=== PATIENT | male | born 1975 | race Caucasian/White ===

== ENCOUNTER → 2020-11-30 08:25 | Outpatient (BNVA) | payer OTHER, SELFPAY | PROVIDERS: PCP Internal Medicine; Visit Provider Student in an Organized Health Care Education/Training Program | DX: M10.421 Other secondary gout, right elbow (principal) | CPT/HCPCS: 99202 ==

== ENCOUNTER 2021-01-19 14:54 | Outpatient (REF) | payer OTHER, SELFPAY ==
[2021-01-19 15:19] LABS: MANUAL DIFF FLAG NO
[2021-01-19 15:21] LABS: Basophils Absolute Auto 0.1 X10*3/uL (0.0-0.2); Basophils Percent Auto 0.7 % (0-2); Eosinophils Absolute Auto 0.1 X10*3/uL (0.0-0.4); Eosinophils Percent Auto 1.4 % (0-4); Hematocrit 44.2 % (42-52); Hemoglobin 14.6 g/dl (14.0-18.0); Imm Gran Abs Auto 0.01 X10*3/uL (0.00-0.03); Imm Gran Pct Auto 0.1 % (0.0-0.4); Lymphocytes Absolute Auto 1.9 X10*3/uL (1.2-4.9); Lymphocytes Percent Auto 23.8 % (20-40); Mean Corpuscular Hemoglobin 30.2 pg (27.0-33.0); Mean Corpuscular Volume 91.3 fL (80-98); Mean Platelet Volume 9.7 fL (9.4-12.4); Monocytes Absolute Auto 0.4 X10*3/uL (0.1-1.2); Monocytes Percent Auto 4.6 % (2-11); Neutrophils Absolute Auto 5.6 X10*3/uL (2.0-8.3); Neutrophils Percent Auto 69.4 % (45-73); Platelet Count 296 X10*3/uL (160-400); Red Blood Count 4.84 X10*6/uL (4.60-5.80); Red Cell Distribution Width 13.2 % (11.0-16.0); White Blood Count 8.1 X10*3/uL (4.8-10.8)
[2021-01-19 15:46] LABS: Alanine Aminotransferase 18 U/L (0-40); Albumin Level 4.4 g/dL (3.5-5.0); Alkaline Phosphatase 79 U/L (39-117); Anion Gap 15 (12-20); Aspartate Amino Transferase 16 U/L (5-37); Bilirubin Total 0.9 mg/dL (0.0-1.0); Blood Urea Nitrogen 12 mg/dL (9-16); C Reactive Protein 2.73 mg/dL (< or = 0.50); Carbon Dioxide 30 mmol/L (22-29); Chloride 102 mmol/L (96-108); Estimated Glomerular Filt Rate > 60; Glucose Random 93 mg/dL (60-115); Potassium 4.7 mmol/L (3.3-5.1); Sodium 142 mmol/L (135-145); Total Protein 7.4 g/dL (6.5-8.0); Uric Acid 8.3 mg/dL (3.4-7.0)
[2021-01-19 15:56] LABS: Rheumatoid Factor < 15.0 IU/mL (<15.0)
[2021-01-19 16:09] LABS: Erythrocyte Sedimentation Rate 33 MM/HR (0-15)
[2021-01-22 23:22] LABS: Cyclic Citrullinated Peptide <16 UNITS
== END 2021-01-19 14:55 | disposition home or self-care (01) ==
LOC: HO.LAB 14:54
PROVIDERS: Absent Provider Internal Medicine; PCP Internal Medicine; Visit Provider Student in an Organized Health Care Education/Training Program
DX: M10.421 Other secondary gout, right elbow (principal)
CPT/HCPCS: 36415; 80053; 84550; 85025; 85652; 86140; 86200; 86431

== ENCOUNTER 2021-03-20 16:53 | Outpatient (REF) | payer OTHER, SELFPAY ==
--- NOTE | ~2021-03-20 | XR_ITS ---
EXAMINATION: XR ANKLE, LEFT CLINICAL INFORMATION: Left ankle and foot pain. COMPARISON: Left ankle radiographs dated 01/04/2018. TECHNIQUE: AP, lateral, and mortise views of the left ankle. FINDINGS: Chronic probable avulsion fractures at the medial and lateral malleoli with interval healing laterally when compared to the radiographs from 2018. No acute fracture or dislocation. The ankle mortise is maintained. Joint space narrowing with marginal osteophytes at the tibiotalar joint. Degenerative spurring throughout the dorsal midfoot. Findings have increased. Dorsal calcaneal enthesophyte. Joint effusion and circumferential soft tissue swelling. XR/XR ankle LT 2V IMPRESSION: Joint effusion and circumferential soft tissue swelling without acute osseous abnormality. Degenerative arthritis at the tibiotalar joint and dorsal midfoot have increased.
--- NOTE | ~2021-03-20 | XR_ITS ---
EXAMINATION: XR ELBOW, RIGHT CLINICAL INFORMATION: Gout. COMPARISON: None TECHNIQUE: AP, lateral, and oblique views of the right elbow. FINDINGS: No acute fracture or dislocation. No joint space narrowing or marginal osteophytes. No osseous erosion. No significant joint effusion. Olecranon enthesophyte. Prominent soft tissue swelling overlying the olecranon, which could represent olecranon bursitis. Alternatively, findings could represent a soft tissue contusion. XR/XR elbow RT 2V IMPRESSION: Prominent soft tissue swelling overlying the olecranon, which could represent olecranon bursitis versus a soft tissue contusion.
== END 2021-03-20 16:54 | disposition home or self-care (01) ==
LOC: HO.XRAY 16:53
PROVIDERS: Absent Provider Student in an Organized Health Care Education/Training Program; PCP Internal Medicine; Visit Provider Nurse Practitioner Family
DX: M10.421 Other secondary gout, right elbow (principal); M25.572 Pain in left ankle and joints of left foot
CPT/HCPCS: 73070; 73600

== ENCOUNTER 2021-03-27 13:01 | Outpatient (REF) | payer OTHER, SELFPAY ==
--- NOTE | ~2021-03-27 | XR_ITS ---
EXAMINATION: XR HAND, LEFT CLINICAL INFORMATION: Pain COMPARISON: None TECHNIQUE: PA, lateral, and oblique views of the left hand. FINDINGS: The bones and soft tissues are normal. No fracture. Alignment is anatomic. Joint spaces are maintained. No erosions or soft tissue calcifications. XR/XR hand LT min 3V IMPRESSION: Normal left hand.
[2021-03-27 15:09] LABS: Alanine Aminotransferase 14 U/L (0-40); Albumin Level 4.3 g/dL (3.5-5.0); Alkaline Phosphatase 69 U/L (39-117); Anion Gap 14 (12-20); Aspartate Amino Transferase 13 U/L (5-37); Bilirubin Total 0.7 mg/dL (0.0-1.0); Blood Urea Nitrogen 11 mg/dL (9-16); C Reactive Protein 0.49 mg/dL (< or = 0.50); Calcium 9.9 mg/dL (8.4-10.2); Carbon Dioxide 29 mmol/L (22-29); Chloride 102 mmol/L (96-108); Estimated Glomerular Filt Rate > 60; Glucose Random 90 mg/dL (60-115); Potassium 4.6 mmol/L (3.3-5.1); Sodium 140 mmol/L (135-145); Total Protein 7.1 g/dL (6.5-8.0); Uric Acid 8.6 mg/dL (3.4-7.0)
== END 2021-03-27 13:02 | disposition home or self-care (01) ==
LOC: HO.XRAY 13:01
PROVIDERS: PCP Internal Medicine; Visit Provider Nurse Practitioner Family
DX: M79.642 Pain in left hand (principal); M10.421 Other secondary gout, right elbow
CPT/HCPCS: 36415; 73130; 80053; 84550; 86140; 99212

== ENCOUNTER → 2021-04-09 13:19 | Outpatient (BNVA) | payer OTHER, SELFPAY | PROVIDERS: PCP Internal Medicine; Visit Provider Orthopaedic Surgery | DX: M19.072 Primary osteoarthritis, left ankle and foot (principal); E11.65 Type 2 diabetes mellitus with hyperglycemia | CPT/HCPCS: 20605; 99202; J1100 ==

== ENCOUNTER 2021-05-07 10:00 | Outpatient (RCR) | payer OTHER, SELFPAY | END 2021-10-09 07:51 | disposition home or self-care (01) | LOC: HO.PTWFD 10:00 | PROVIDERS: PCP Internal Medicine; Visit Provider Orthopaedic Surgery | DX: M25.571 Pain in right ankle and joints of right foot (principal); M19.072 Primary osteoarthritis, left ankle and foot | CPT/HCPCS: 97035; 97110; 97140; 97162; 97530; 97535 ==

== ENCOUNTER 2021-07-12 12:06 | Emergency (ER) | payer OTHER, SELFPAY ==
--- NOTE | ~2021-07-12 | XR_ITS ---
EXAMINATION: RIGHT FOOT AND ANKLE CLINICAL INFORMATION: Rolling injury with lateral foot and ankle pain COMPARISON: April 04, 2018 and February 12, 2018 TECHNIQUE: Two-view right ankle and three-view right foot FINDINGS: There are stable posttraumatic change seen about the right ankle without evidence of acute fracture or dislocation involving the medial and lateral malleoli. There appears be old avulsion fragment versus secondary ossification center adjacent to the medial malleolus.. Ankle mortise appears unremarkable. Appearance is similar to previous study of April 04, 2018. There is soft tissue swelling present. There is a prominent Achilles calcaneal spur present. Views of the right foot demonstrate some dorsal spurring at the talonavicular joint and cuneiforms. No acute fracture is evident. There is degenerative change of the first metacarpal phalangeal joint with narrowing of joint space, marginal sclerosis, spurring, and subchondral cyst formation. XR/XR ankle RT 2V IMPRESSION: No acute fracture or dislocation of the right foot or ankle appreciated. Probable sequela of previous injuries as described above. Large amount soft tissue swelling.
--- NOTE | ~2021-07-12 | XR_ITS ---
EXAMINATION: RIGHT FOOT AND ANKLE CLINICAL INFORMATION: Rolling injury with lateral foot and ankle pain COMPARISON: April 04, 2018 and February 12, 2018 TECHNIQUE: Two-view right ankle and three-view right foot FINDINGS: There are stable posttraumatic change seen about the right ankle without evidence of acute fracture or dislocation involving the medial and lateral malleoli. There appears be old avulsion fragment versus secondary ossification center adjacent to the medial malleolus.. Ankle mortise appears unremarkable. Appearance is similar to previous study of April 04, 2018. There is soft tissue swelling present. There is a prominent Achilles calcaneal spur present. Views of the right foot demonstrate some dorsal spurring at the talonavicular joint and cuneiforms. No acute fracture is evident. There is degenerative change of the first metacarpal phalangeal joint with narrowing of joint space, marginal sclerosis, spurring, and subchondral cyst formation. XR/XR foot RT 2V IMPRESSION: No acute fracture or dislocation of the right foot or ankle appreciated. Probable sequela of previous injuries as described above. Large amount soft tissue swelling.
[2021-07-12 12:17] VITALS: BP 114/80; PULSE 73; RESP 18; TEMP 37.1; O2SAT 98; BMI 32.5
--- NOTE | 2021-07-12 12:40 | ED_ITS ---
HPI - Extremity Injury (Lower) General Chief Complaint: Extremity Injury, Lower Stated Complaint: r ankle inj Time Seen by Provider: 07/12/21 12:24 Source: patient Mode of arrival: ambulatory Limitations: no limitations History of Present Illness HPI Narrative: 45-year-old male a history of peripheral vascular disease, gout, obesity, diabetes, hypertension and hyperlipidemia here with reports of right ankle pain. Patient tells me prior to arrival he had inversion injury of the right ankle. Since then he has pain with weight-bearing. No numbness, tingling, swelling, warmth or redness. Related Data Home Medications Medication Instructions Recorded Confirmed aspirin 81 mg tablet,delayed 81 mg PO DAILY 04/25/20 03/27/21 release (Adult Aspirin Regimen) multivitamin 1 tab PO DAILY 03/27/21 03/27/21 Previous Rx's Medication Instructions Recorded propranolol 10 mg tablet 10 mg PO BID #60 tab 04/25/20 escitalopram oxalate 20 mg tablet 20 mg PO DAILY #90 tab 07/21/20 allopurinol 300 mg tablet 300 mg PO DAILY #90 tab 10/10/20 compress.stocking,knee,reg,lrg #2 ea 10/11/20 colchicine 0.6 mg tablet (Colcrys) 0.6 mg PO DAILY #90 tab 01/19/21 simvastatin 5 mg tablet 5 mg PO QPM #90 tab 01/19/21 ibuprofen 600 mg tablet 600 mg PO Q8H PRN #15 tab 03/20/21 metformin 500 mg tablet 500 mg PO DAILY #90 tab 03/20/21 oxycodone 5 mg tablet 5 mg PO DAILY PRN #7 tab 03/20/21 allopurinol 100 mg tablet 100 mg PO DAILY #30 tab 07/02/21 Allergies Allergy/AdvReac Type Severity Reaction Status Date / Time latex [LATEX] Allergy Intermediate RASH Verified 07/12/21 12:17 acetaminophen Allergy Unknown stomach Verified 07/12/21 12:17 [Tylenol] upset amoxicillin Allergy Unknown nausea and Verified 07/12/21 12:17 vomiting Review of Systems Verdana 4l Review of Systems: Yes all other systems are reviewed and Verdana 4d are negative Verdana 4l Constitutional: Verdana 4d Constitutional: Verdana 4d Verdana 4d Reports no additional constitutional complaints, Denies body ache(s), Denies chills, Denies fever(s), Denies headache(s) and Denies weakness Verdana 4l Eyes: Verdana 4d Verdana 4d Eyes: Verdana 4d Reports no additional eye complaints and Denies change in vision Verdana 4l ENT: Verdana 4d Reports system reviewed and no additional complaints, except as documented, Denies dizziness, Denies headache(s), Denies nasal congestion, Denies nasal discharge and Denies neck pain Verdana 4l Cardiovascular: Verdana 4d Cardiovascular: Verdana 4d Verdana 4d Reports no additional cardiovascular complaints, Denies chest pain, Denies leg edema and Denies dyspnea Verdana 4l Respiratory: Verdana 4d Verdana 4d Respiratory: Verdana 4d Reports no additional respiratory complaints, Denies cough and Denies dyspnea Verdana 4l Gastrointestinal: Verdana 4d Gastrointestinal: Verdana 4d Verdana 4d Reports no additional gastrointestinal complaints, Denies abdominal pain, Denies diarrhea, Denies nausea and Denies vomiting Verdana 4l Genitourinary: Verdana 4d Verdana 4d Genitourinary: Verdana 4d Denies urinary incontinence Verdana 4l Musculoskeletal: Verdana 4d Musculoskeletal: Verdana 4d Verdana 4d Reports no additional musculoskeletal complaints, Denies back pain, Reports arthralgias, Reports joint swelling, Denies neck pain, Denies numbness and Denies tingling Verdana 4l Integumentary/Breasts: Verdana 4d Skin/Breast: Verdana 4d Verdana 4d Reports system reviewed and no additional complaints, except as docu and Denies rash Verdana 4l Neurologic: Verdana 4d Reports system reviewed and no additional complaints, except as documented, Denies Abnormal speech present, Denies dizziness, Denies headache(s), Denies numbness, Denies tingling and Denies weakness PMFSH Past Medical History Attestation statement: The following information was validated with the patient. Source: old records reviewed and nursing notes reviewed Medical History Anxiety and depression Contracture, left hand Essential tremor Gout Hypercholesterolemia Hypertension Obesity (BMI 30-39.9) Type 2 diabetes mellitus with hyperglycemia Surgical History History of cholecystectomy History of sleeve gastrectomy History of tonsillectomy Family History Family History Father No problems noted. Mother No problems noted. Social History Social History Household Members: None Housing: Apartment Alcohol intake: never Patient Tobacco Use Status: Never used Tobacco e-Cigarette/Vaping Use: Never Used Second Hand Smoke Exposure: No Advance Directives: No Advance Directives Information Provided: No service: No Current occupational status: employed Current occupation: [employer] Current occupational exposures/hazards: No Physical Exam Verdana 4l Vital Signs: Verdana 4d Verdana 4d Vital Signs: Verdana 4d Verdana 4Bd Last Vital Signs Verdana 4d Motion Designer New 4d Motion Designer New 4d Temp 98.7 F 07/12/21 12:17 Motion Designer New 4d Pulse 73 07/12/21 12:17 Motion Designer New 4d Resp 18 07/12/21 12:17 BP 114/80 07/12/21 12:17 Pulse Ox 98 07/12/21 12:17 BMI result Body Mass Index 32.5 Const: General: cooperative, healthy appearing, comfortable and no acute distress Orientation/consciousness: patient oriented x3 Limitations: no limitations HENMT: Head: Yes normal to inspection Ears: hearing grossly normal bilaterally General nose exam: Normal external nose present Face and sinus: Yes normal facial exam Mouth: Normal oral and palatal mucosa present Throat: Yes posterior oropharynx normal Eyes: General: appearance normal, both eyes and all related structures Pupils: Equal, round and reactive pupils present Neck: Neck: Yes normal visual inspection Chest: Chest palpation & inspection: normal inspection of the chest Resp: Effort & Inspection: normal respiratory effort Auscultation: clear to auscultation bilaterally Cardio: Rate: regular rate Rhythm: regular rhythm Peripheral pulses: Peripheral pulses 2+ throughout GI: Inspection: Yes normal to inspection Palpation (GI): Soft to palpation and nontender Auscultation: normal bowel sounds Back/Spine/Pelvis: Thoracic/Lumbar Spine: thoracic and lumbar spine normal to inspection Skin: General skin exam: no rashes or lesions noted Neuro: General: patient oriented x3, no focal motor deficits and normal sensation to monofilament Cranial nerves: Yes Equal, round and reactive pupils present Cognition (Neuro): normal cognition Speech: No Abnormal speech present Gait exam (Neuro): Normal gait present Motor exam (neuro): 5/5 motor strength present throughout Extrem: Other: The lateral aspect of the ankle and the foot there is swelling, ecchymosis and tenderness. Full range of motion. Neurovascularly intact distally to the injury. No posterior ankle pain. Negative Don test General: Yes normal to inspection Course Course Course Narrative: 45-year-old male here with right ankle pain after an inversion injury. Patient also has tenderness and ecchymosis over the lateral aspect of foot. Will check x-rays 1445-x-ray show no bony abnormality. Likely sprain. Patient placed in air cast and given crutches for home. Reviewed rice. Reviewed worrisome signs and symptoms of when to return to the emergency department. Comfortable discharge home. MDM - Extremity Injury (Lower) Differential Diagnosis Differential diagnosis: Likely ankle sprain and strain and ankle fracture Medical Records Attestation: I reviewed the patient's medical records. Lab Data Attestation: I reviewed the patient's lab results. Imaging Data ankle/foot xray: Attestation: I personally reviewed and interpreted this imaging study as follows: Radiologist's impression: FINDINGS: There are stable posttraumatic change seen about the right ankle without evidence of acute fracture or dislocation involving the medial and lateral malleoli. There appears be old avulsion fragment versus secondary ossification center adjacent to the medial malleolus.. Ankle mortise appears unremarkable. Appearance is similar to previous study of April 04, 2018. There is soft tissue swelling present. There is a prominent Achilles calcaneal spur present. Views of the right foot demonstrate some dorsal spurring at the talonavicular joint and cuneiforms. No acute fracture is evident. There is degenerative change of the first metacarpal phalangeal joint with narrowing of joint space, marginal sclerosis, spurring, and subchondral cyst formation. XR/XR ankle RT 2V IMPRESSION: No acute fracture or dislocation of the right foot or ankle appreciated. ? Probable sequela of previous injuries as described above. ? Large amount soft tissue swelling.? Procedures Procedure Narrative Procedure Narrative: air cast, crutches Discharge Plan Discharge Clinical Impression: Ankle sprain and strain Patient Disposition: Home, Self-Care Instructions: Ankle Sprain (DC) Additional Instructions: X-ray show no broken bones Use the Aircast and crutches for the next few days until you are able to bear weight without experiencing pain Ice, elevate, take Motrin for pain as needed Prescriptions: No Action escitalopram oxalate 20 mg tablet 20 mg PO DAILY Qty: 90 1RF allopurinol 300 mg tablet 300 mg PO DAILY Qty: 90 1RF oxycodone 5 mg tablet 5 mg PO DAILY PRN (Reason: pain) Qty: 7 0RF allopurinol 100 mg tablet 100 mg PO DAILY Qty: 30 0RF aspirin [Adult Aspirin Regimen] 81 mg tablet,delayed release (DR/EC) 81 mg PO DAILY 0RF propranolol 10 mg tablet 10 mg PO BID Qty: 60 2RF simvastatin 5 mg tablet 5 mg PO QPM Qty: 90 1RF colchicine [Colcrys] 0.6 mg tablet 0.6 mg PO DAILY Qty: 90 1RF (DME) compress.stocking,knee,reg,lrg Misc See Rx Instructions .ROUTE .MEDSUPPLY Qty: 2 0RF Rx Instructions: As directed metformin 500 mg tablet 500 mg PO DAILY Qty: 90 0RF ibuprofen 600 mg tablet 600 mg PO Q8H PRN (Reason: pain) Qty: 15 0RF multivitamin Tablet 1 tab PO DAILY 0RF Referrals: Po,Randa Hinson MD [Primary Care Provider] - 2 days Stand Alone Forms: Work/School Release Interventions: ED Discharge Assessment Last Done: 07/12/21 15:09 Discharge Date/Time: 07/12/21 15:12
== END 2021-07-12 15:12 | disposition home or self-care (01) ==
PROVIDERS: Emergency Provider Emergency Medicine; PCP Internal Medicine
DX: S93.401A Sprain of unspecified ligament of right ankle, initial encounter (principal); S96.911A Strain of unspecified muscle and tendon at ankle and foot level, right foot, initial encounter; X50.1XXA Overexertion from prolonged static or awkward postures, initial encounter; E11.9 Type 2 diabetes mellitus without complications; I10 Essential (primary) hypertension; Y93.9 Activity, unspecified; Y92.9 Unspecified place or not applicable; Y99.9 Unspecified external cause status
CPT/HCPCS: 73600; 73620; 99283

== ENCOUNTER → 2021-10-22 08:17 | Outpatient (BNVA) | payer OTHER, SELFPAY | PROVIDERS: PCP Internal Medicine | DX: N20.0 Calculus of kidney (principal) | CPT/HCPCS: 99202 ==

== ENCOUNTER 2021-11-27 11:02 | Outpatient (REF) | payer OTHER, SELFPAY ==
[2021-11-27 13:15] LABS: MANUAL DIFF FLAG NO
[2021-11-27 13:18] LABS: Basophils Percent Auto 0.6 % (0-2); Eosinophils Absolute Auto 0.1 X10*3/uL (0.0-0.4); Eosinophils Percent Auto 1.8 % (0-4); Hematocrit 39.2 % (42.0-52.0); Hemoglobin 12.7 g/dl (14.0-18.0); Imm Gran Abs Auto 0.02 X10*3/uL (0.00-0.03); Imm Gran Pct Auto 0.3 % (0.0-0.4); Lymphocytes Absolute Auto 1.8 X10*3/uL (1.2-4.9); Lymphocytes Percent Auto 28.3 % (20-40); Mean Corpuscular HGB Conc 32.4 g/dl (31.0-36.0); Mean Corpuscular Hemoglobin 29.8 pg (27.0-33.0); Mean Platelet Volume 9.9 fL (9.4-12.4); Monocytes Absolute Auto 0.3 X10*3/uL (0.1-1.2); Monocytes Percent Auto 5.4 % (2-11); Neutrophils Percent Auto 63.6 % (45-73); Platelet Count 279 X10*3/uL (160-400); Red Blood Count 4.26 X10*6/uL (4.60-5.80); Red Cell Distribution Width 13.4 % (11.0-16.0); White Blood Count 6.3 X10*3/uL (4.8-10.8)
[2021-11-27 14:22] LABS: Alanine Aminotransferase 12 U/L (0-40); Alkaline Phosphatase 75 U/L (39-117); Anion Gap 11 (12-20); Aspartate Amino Transferase 15 U/L (5-37); Bilirubin Total 0.2 mg/dL (0.0-1.0); Blood Urea Nitrogen 10 mg/dL (9-16); Calcium 9.3 mg/dL (8.4-10.2); Carbon Dioxide 30 mmol/L (22-29); Chloride 103 mmol/L (96-108); Estimated Glomerular Filt Rate > 60; Glucose Random 90 mg/dL (60-115); Potassium 4.7 mmol/L (3.3-5.1); Sodium 139 mmol/L (135-145); Total Protein 6.8 g/dL (6.5-8.0); Uric Acid 7.9 mg/dL (3.4-7.0)
== END 2021-11-27 11:03 | disposition home or self-care (01) ==
LOC: HO.WFDLDS 11:02
PROVIDERS: Visit Provider Family Medicine
DX: Z00.00 Encounter for general adult medical examination without abnormal findings (principal); M10.9 Gout, unspecified
CPT/HCPCS: 36415; 80053; 84550; 85025

== ENCOUNTER → 2021-12-17 13:23 | Outpatient (BNVA) | payer OTHER, SELFPAY | PROVIDERS: PCP Internal Medicine; Visit Provider Physician Assistant | DX: M25.462 Effusion, left knee (principal); M10.9 Gout, unspecified | CPT/HCPCS: 20610; 99212; J1040 ==

== ENCOUNTER 2021-12-20 13:40 | Outpatient (REF) | payer OTHER, SELFPAY ==
--- NOTE | ~2021-12-20 | XR_ITS ---
EXAMINATION: XR KNEE, LEFT CLINICAL INFORMATION: M25.562 - Pain in left knee COMPARISON: Radiographs left knee 09/25/2019 TECHNIQUE: Four views of the left knee. FINDINGS: No fracture, dislocation, destructive process, or effusion. Hoffa's fat pad appears normal. No joint narrowing or erosive change or chondrocalcinosis. There is no lateralization or tilting of the patella. Again, there is bulky spurring at the quadriceps insertion patella. Small spurring is noted at origin patellar tendon. The deep infrapatellar recess is preserved. XR/XR knee LT 3V IMPRESSION: -Spurring extensor mechanism with bulky spurring quadriceps insertion patella and small spur origin patellar tendon. -No joint narrowing. No effusion.
== END 2021-12-20 13:41 | disposition home or self-care (01) ==
LOC: HO.XRAY 13:40
PROVIDERS: PCP Internal Medicine; Visit Provider Nurse Practitioner Family
DX: M25.562 Pain in left knee (principal); M79.642 Pain in left hand; M10.421 Other secondary gout, right elbow; Z79.899 Other long term (current) drug therapy
CPT/HCPCS: 73562; 99212

== ENCOUNTER → 2022-01-30 10:29 | Outpatient (BNVA) | payer OTHER, SELFPAY | PROVIDERS: PCP Internal Medicine; Visit Provider Nurse Practitioner Family | DX: M10.421 Other secondary gout, right elbow (principal); M79.642 Pain in left hand | CPT/HCPCS: 99212 ==

== ENCOUNTER 2022-03-19 08:21 | Outpatient (REF) | payer OTHER, SELFPAY ==
--- NOTE | ~2022-03-19 | XR_ITS ---
EXAMINATION: XR AP STANDING VIEW OF BOTH KNEES XR KNEE, RIGHT CLINICAL INFORMATION: Knee pain. COMPARISON: 12/20/2021. TECHNIQUE: AP standing views of both knees and patella sunrise and lateral views of the right knee. FINDINGS: AP standing view of both knees demonstrates maintenance of the medial lateral joint space compartments of each knee. No acute fractures appreciated. Lateral and sunrise views of the right knee demonstrate patella spurs sites of insertion of the quadriceps and patellar tendons. No effusion is appreciated. There is degenerative spurring about the patellofemoral joint with narrowing of the lateral facet joint. XR/XR knee standing BI IMPRESSION: Right patellofemoral joint degenerative change.
--- NOTE | ~2022-03-19 | XR_ITS ---
EXAMINATION: XR AP STANDING VIEW OF BOTH KNEES XR KNEE, RIGHT CLINICAL INFORMATION: Knee pain. COMPARISON: 12/20/2021. TECHNIQUE: AP standing views of both knees and patella sunrise and lateral views of the right knee. FINDINGS: AP standing view of both knees demonstrates maintenance of the medial lateral joint space compartments of each knee. No acute fractures appreciated. Lateral and sunrise views of the right knee demonstrate patella spurs sites of insertion of the quadriceps and patellar tendons. No effusion is appreciated. There is degenerative spurring about the patellofemoral joint with narrowing of the lateral facet joint. XR/XR knee RT 2V IMPRESSION: Right patellofemoral joint degenerative change.
== END 2022-03-19 08:22 | disposition home or self-care (01) ==
LOC: HO.HOSX 08:21
PROVIDERS: Visit Provider Physician Assistant
DX: M17.11 Unilateral primary osteoarthritis, right knee (principal)
CPT/HCPCS: 73560; 73565; 99212

== ENCOUNTER 2022-03-25 19:27 | Outpatient (REF) | payer OTHER, SELFPAY | END 2022-03-25 19:28 | disposition home or self-care (01) | LOC: HO.MRI 19:27 | PROVIDERS: Visit Provider Physician Assistant | DX: Z13.89 Encounter for screening for other disorder (principal) ==

== ENCOUNTER 2022-04-10 16:19 | Outpatient (REF) | payer OTHER, SELFPAY ==
[2022-04-10 17:42] LABS: Estimated Average Glucose 111 mg/dL; Hemoglobin A1c % 5.5 %
[2022-04-10 18:10] LABS: Vitamin D 25-OH Total 20.9 ng/mL (>30)
[2022-04-10 18:16] LABS: Folate 9.4 ng/mL (> or = 4.0); Vitamin B12 336 pg/mL (200-900)
== END 2022-04-10 16:20 | disposition home or self-care (01) ==
LOC: HO.LAB 16:19
PROVIDERS: Absent Provider Nurse Practitioner Family; PCP Internal Medicine; Visit Provider Nurse Practitioner Family
DX: R20.0 Anesthesia of skin (principal)
CPT/HCPCS: 36415; 82306; 82607; 82746; 83036

== ENCOUNTER 2022-04-12 09:39 | Emergency (ER) | payer OTHER, SELFPAY ==
--- NOTE | ~2022-04-12 | XR_ITS ---
EXAMINATION: XR FOOT, RIGHT CLINICAL INFORMATION: Fall with pain and swelling COMPARISON: 07/12/2021 TECHNIQUE: AP, lateral, and oblique views of the right foot. FINDINGS: No fracture or dislocation. Alignment maintained. Joint space narrowing at the first metatarsophalangeal joint with osteophyte formation. Marginal erosion at the base of the first digit proximal phalanx. This is unchanged. Overlying soft tissue swelling. Prominent Achilles heel spur. No ankle joint effusion. XR/XR foot RT min 3V IMPRESSION: No acute fracture or malalignment. Degenerative changes at the first metatarsophalangeal joint. Marginal erosion at the base of the first digit proximal phalanx. This can be seen in the setting of gout.
[2022-04-12 09:45] VITALS: BP 124/78; PULSE 74; RESP 20; TEMP 36.3; O2SAT 100; BMI 36.6
--- NOTE | 2022-04-12 10:00 | PC.NURSE ---
patient a/o x4 . pearrla . heart rate regular at 75 beats per minute . lungs clear throughout . breathing even and unlabored . skin pink warm and dry . patient reports twisting right foot , off step and now can not bear weight on it . Xray completed . Bruising noted on 5th toe . redness noted to foot . patient reports 5 out of 10 pain level at this time . abdomen soft not tender . positive bowel sounds in all four quadrants . patient aware of plan of care .
--- NOTE | 2022-04-12 10:40 | ED_ITS ---
HPI - Extremity Injury (Lower) General Chief Complaint: Extremity Injury, Lower Stated Complaint: fall last night swollen ankle Time Seen by Provider: 04/12/22 10:37 Source: patient Mode of arrival: ambulatory Limitations: no limitations History of Present Illness MD complaint: foot injury Onset (ago): day(s) (yesterday) Injury: Right: foot Type of Injury: eversion Place: home Severity: severe Relieving factors: nothing Exacerbating factors: weight bearing and palpation Context: fall Associated symptoms: swelling and unable to bear weight Other symptoms: none Treatments prior to arrival: cold therapy Related Data Home Medications Medication Instructions Recorded Confirmed aspirin 81 mg tablet,delayed 81 mg PO DAILY 04/25/20 04/10/22 release (Adult Aspirin Regimen) multivitamin 1 tab PO DAILY 03/27/21 04/10/22 pyridoxine (vitamin B6) 50 mg 50 mg PO DAILY 11/27/21 04/10/22 tablet Previous Rx's Medication Instructions Recorded compress.stocking,knee,reg,lrg #2 ea 10/11/20 colchicine 0.6 mg tablet (Colcrys) 0.6 mg PO DAILY #90 tabs 01/19/21 ibuprofen 600 mg tablet 600 mg PO Q8H PRN pain #15 tabs 03/20/21 metformin 500 mg tablet 500 mg PO DAILY #90 tabs 03/20/21 simvastatin 5 mg tablet 5 mg PO QPM #90 tabs 07/18/21 escitalopram oxalate 20 mg tablet 20 mg PO DAILY #90 tabs 09/21/21 allopurinol 100 mg tablet 200 mg PO DAILY #60 tabs 12/20/21 allopurinol 300 mg tablet 300 mg PO DAILY #30 tabs 12/20/21 diazepam 5 mg tablet (Valium) 5 mg PO ONCE PRN anxiety #1 tab 04/02/22 gabapentin 100 mg capsule 100 mg PO BEDTIME #14 caps 04/10/22 prednisone 20 mg tablet 20 mg PO DAILY 5 days #5 tabs 04/10/22 cholecalciferol (vitamin D3) 25 25 mcg PO DAILY #90 tabs 04/11/22 mcg (1,000 unit) tablet ibuprofen 600 mg tablet 600 mg PO Q8H PRN pain #30 tabs 04/12/22 morphine 15 mg immediate release 15 mg PO TID PRN pain #6 tabs 04/12/22 tablet Allergies Allergy/AdvReac Type Severity Reaction Status Date / Time latex [LATEX] Allergy Intermediate RASH Verified 04/10/22 15:47 acetaminophen [Tylenol] Allergy Unknown stomach Verified 04/10/22 15:47 upset amoxicillin Allergy Unknown nausea and Verified 04/10/22 15:47 vomiting Review of Systems Review of Systems: Constitutional : No Fever, No Chills Cardiovascular : No Chest Pain, No SOB Respiratory : No Cough, No Dyspnea Gastrointestinal : No Nausea, No Vomiting, No Diarrhea, No abdominal Pain Genitourinary : No Dysuria, No Hematuria Musculoskeletal : positive joint pain, No Myalgias, pos Joint Swelling Skin : No Skin lacerations, No rash Neuro : No Weakness, No Numbness PMFSH Past Medical History Attestation statement: The following information was validated with the patient. Medical History Anxiety and depression Contracture, left hand Essential tremor Gout Hypercholesterolemia Hypertension Obesity (BMI 30-39.9) Type 2 diabetes mellitus with hyperglycemia Surgical History History of cholecystectomy History of sleeve gastrectomy History of tonsillectomy Family History Family History Father No problems noted. Mother No problems noted. Social History Social History Household Members: None Housing: Apartment Alcohol intake: current Alcohol intake frequency: a few times a month Patient Tobacco Use Status: Never used Tobacco e-Cigarette/Vaping Use: Never Used Second Hand Smoke Exposure: No Advance Directives: No Advance Directives Information Provided: Yes service: No Current occupational status: employed Current occupation: [employer] Current occupational exposures/hazards: No Cognitive needs: No Hearing needs: No Vision needs: No Physical Exam Vital Signs: Vital Signs: Last Vital Signs Temp 97.3 F 04/12/22 09:45 Pulse 74 04/12/22 09:45 Resp 20 04/12/22 09:45 BP 124/78 04/12/22 09:45 Pulse Ox 100 04/12/22 09:45 O2 Del Method 04/12/22 09:45 BMI result Body Mass Index 36.6 Appearance: Alert. Oriented X3. No acute distress. Eyes: Pupils equal, round and reactive to light. ENT: Pharynx normal. Neck: Normal inspection. Neck supple. CVS: Normal heart rate and rhythm. Pulses normal. Respiratory: No respiratory distress. Abdomen: Soft and nontender. Skin: Skin warm and dry. Normal skin color. Normal skin turgor. Extremities: No lower extremity edema. R foot moderate swelling and contusion to R lateral 5th metatarsal with ecchymosis noted, NV intact bounding pulses noted Neuro: Oriented X 3. No motor deficit. No sensory deficit. MDM - Extremity Injury (Lower) MDM Narrative Medical decision making narrative: 46 yo male with hx of gout here with R foot injury last night - NV intact, xrays negative but the patient has sig swelling and contusion over 5th metatarsal with ecchymosis clinically it looks like a fracture - I am suprised he doesn't have a fracture on xray, will instruct repeat xrays on Friday Procedures Orthopedic Splinting/Casting Injury #1: Side: right Lower Extremity Injury Location: foot Lower Extremity Immobilizer: post-op shoe Other Orthopedic Equipment: crutches Discharge Plan Discharge Clinical Impression: Bone bruise Foot sprain Qualifiers: Encounter type: initial encounter Laterality: right Qualified Code(s): S93.601A - Unspecified sprain of right foot, initial encounter Patient Disposition: Home, Self-Care Instructions: Foot Sprain (ED), Bone Bruise (ED) Additional Instructions: return to ED for any worsening symptoms or concerns REPEAT XRAYS FRIDAY WITH YOUR DOCTOR UNTIL THEN NO WEIGHT BEARING AND CRUTCHES USE POST OP SHOE Prescriptions: New ibuprofen 600 mg tablet 600 mg PO Q8H PRN (Reason: pain) Qty: 30 0RF morphine 15 mg tablet 15 mg PO TID PRN (Reason: pain) Qty: 6 0RF Rx Instructions: partial fill okay; Partial Fill upon patient request. No Action simvastatin 5 mg tablet 5 mg PO QPM Qty: 90 0RF diazepam [Valium] 5 mg tablet 5 mg PO ONCE PRN (Reason: anxiety) Qty: 1 0RF cholecalciferol (vitamin D3) 25 mcg (1,000 unit) tablet 25 mcg PO DAILY Qty: 90 0RF aspirin [Adult Aspirin Regimen] 81 mg tablet,delayed release (DR/EC) 81 mg PO DAILY colchicine [Colcrys] 0.6 mg tablet 0.6 mg PO DAILY Qty: 90 1RF (DME) compress.stocking,knee,reg,lrg Misc See Rx Instructions .ROUTE .MEDSUPPLY Qty: 2 0RF Rx Instructions: As directed metformin 500 mg tablet 500 mg PO DAILY Qty: 90 0RF ibuprofen 600 mg tablet 600 mg PO Q8H PRN (Reason: pain) Qty: 15 0RF escitalopram oxalate 20 mg tablet 20 mg PO DAILY Qty: 90 1RF pyridoxine (vitamin B6) 50 mg tablet 50 mg PO DAILY prednisone 20 mg tablet 20 mg PO DAILY 5 Days Qty: 5 0RF gabapentin 100 mg capsule 100 mg PO BEDTIME Qty: 14 0RF multivitamin Tablet 1 tab PO DAILY allopurinol 100 mg tablet 200 mg PO DAILY Qty: 60 3RF Rx Instructions: Allopurinol 200 mg to be taken with allopurinol 300 mg tablet to equal 500 mg daily allopurinol 300 mg tablet 300 mg PO DAILY Qty: 30 3RF Rx Instructions: Allopurinol 300 mg tablet to be taken with 200 mg of allopurinol to equal 500 mg daily Referrals: Dimitris,Randa Hinson MD [Primary Care Provider] - 04/15/22 Stand Alone Forms: Work/School Release
[2022-04-12 11:49] VITALS: BP 125/76; PULSE 75; RESP 18; TEMP 36.1; O2SAT 100
--- NOTE | 2022-04-12 11:52 | PC.NURSE ---
patient a/ox4 . breathing even and unlabored . walking boot applied to right foot and education given on proper use of crutches . patient has follow up with orthopedics on Friday . patient to return Friday for follow up Xray . patient to return to Ed if symptoms worsen . no questions at this time .
== END 2022-04-12 11:55 | disposition home or self-care (01) ==
PROVIDERS: Emergency Provider Emergency Medicine; PCP Internal Medicine
DX: S93.401A Sprain of unspecified ligament of right ankle, initial encounter (principal); M25.571 Pain in right ankle and joints of right foot; W01.0XXA Fall on same level from slipping, tripping and stumbling without subsequent striking against object, initial encounter; Y93.9 Activity, unspecified; Y92.9 Unspecified place or not applicable; Y99.9 Unspecified external cause status; Z79.899 Other long term (current) drug therapy
CPT/HCPCS: 29515; 73630; 99283; 99284

== ENCOUNTER 2022-04-14 11:34 | Emergency (ER) | payer OTHER, SELFPAY ==
--- NOTE | ~2022-04-14 | XR_ITS ---
EXAMINATION: XR FOOT, RIGHT CLINICAL INFORMATION: Pain COMPARISON: 04/12/2022, 07/12/2021 TECHNIQUE: AP, lateral, and oblique views of the right foot. FINDINGS: There is felt to be degenerative change at the first MTP joint similar to previous exams. There is some evidence of bony erosion which may be chronic when compared to previous exam. There is no evidence for an acute fracture or dislocation. Spurring at the insertion of the Achilles is noted. Degenerative change at the level the ankle joint and scattered degenerative changes to the remainder of the foot XR/XR foot RT min 3V IMPRESSION: Degenerative changes here most noted in the first MTP joint. Areas of bony erosion which may be chronic. Inflammatory arthropathy would need to be considered. If further evaluation is warranted recommendation is MRI
[2022-04-14 12:52] VITALS: BP 108/77; PULSE 74; RESP 18; TEMP 36.7; O2SAT 99; BMI 36.6
[2022-04-14] MEDS: Morphine Sulfate Immed Release 15 MG TABLET PO (18:16)
--- NOTE | 2022-04-14 18:22 | ED.LOWEXIN ---
HPI - Extremity Injury (Lower) General Chief Complaint: Extremity Injury, Lower Stated Complaint: R foot inj/swelling Time Seen by Provider: 04/14/22 17:33 Source: patient and family Mode of arrival: ambulatory Limitations: no limitations History of Present Illness HPI Narrative: 46-year-old male with a past medical history of gout presenting to the ER with complaints of right foot/pain/swelling/redness over the past 2-3 days worse today. Reports that he had an eversion injury on 04/11/2022 and was seen here and diagnosed with a sprain and was given symptomatic treatment and he reports that he is using his crutches, ortho shoe and drinking the Motrin and morphine as prescribed and he is having some mild relief although his symptoms persist. He reports he was instructed to have repeat x-rays by Friday that is why the patient is here today. He reports that this does not feel like his normal gout flare-up in his gout usually presents at the 1st great toe. He denies any fevers, chills, dizziness, headaches, chest pain or shortness of breath, dyspnea on exertion, orthopnea, palpitations, paresthesias, calf pain, lower extremity edema, recent travel or sick contacts, history of DVT or PE, recent immobilization or surgery, any estrogen usage or any other symptoms complaints or concerns at this time. Denies any new injuries. complaint: foot injury Onset (ago): day(s) (3) Injury: Right: foot Type of Injury: eversion Severity: severe Severity scale (1-10): >10 Relieving factors: nothing Exacerbating factors: weight bearing, movement and palpation Context: fall Associated symptoms: swelling and unable to bear weight Other symptoms: none Treatments prior to arrival: other (See above) Related Data Home Medications Medication Instructions Recorded Confirmed aspirin 81 mg tablet,delayed 81 mg PO DAILY 04/25/20 04/10/22 release (Adult Aspirin Regimen) multivitamin 1 tab PO DAILY 03/27/21 04/10/22 pyridoxine (vitamin B6) 50 mg 50 mg PO DAILY 11/27/21 04/10/22 tablet Previous Rx's Medication Instructions Recorded compress.stocking,knee,reg,lrg #2 ea 10/11/20 colchicine 0.6 mg tablet (Colcrys) 0.6 mg PO DAILY #90 tabs 08/13/21 ibuprofen 600 mg tablet 600 mg PO Q8H PRN pain #15 tabs 03/20/21 metformin 500 mg tablet 500 mg PO DAILY #90 tabs 03/20/21 simvastatin 5 mg tablet 5 mg PO QPM #90 tabs 07/18/21 escitalopram oxalate 20 mg tablet 20 mg PO DAILY #90 tabs 09/21/21 allopurinol 100 mg tablet 200 mg PO DAILY #60 tabs 12/20/21 allopurinol 300 mg tablet 300 mg PO DAILY #30 tabs 12/20/21 diazepam 5 mg tablet (Valium) 5 mg PO ONCE PRN anxiety #1 tab 04/02/22 gabapentin 100 mg capsule 100 mg PO BEDTIME #14 caps 04/10/22 prednisone 20 mg tablet 20 mg PO DAILY 5 days #5 tabs 04/10/22 cholecalciferol (vitamin D3) 25 25 mcg PO DAILY #90 tabs 04/11/22 mcg (1,000 unit) tablet ibuprofen 600 mg tablet 600 mg PO Q8H PRN pain #30 tabs 04/12/22 morphine 15 mg immediate release 15 mg PO TID PRN pain #6 tabs 04/12/22 tablet cephalexin 500 mg capsule 500 mg PO Q6H 10 days #40 caps 04/14/22 doxycycline monohydrate 100 mg 100 mg PO BID 10 days #20 tabs 04/14/22 tablet morphine 15 mg immediate release 15 mg PO Q8H PRN pain #10 tabs 04/14/22 tablet Allergies Allergy/AdvReac Type Severity Reaction Status Date / Time latex [LATEX] Allergy Intermediate RASH Verified 04/14/22 12:52 acetaminophen [Tylenol] Allergy Unknown stomach Verified 04/14/22 12:52 upset amoxicillin Allergy Unknown nausea and Verified 04/14/22 12:52 vomiting Review of Systems Review of Systems: Constitutional : No Weight loss, No Fever, No Chills, No Night Sweats, No Fatigue, No Malaise ENT/Mouth : No Hearing loss, No Ear Pain, No Nasal Congestion, No Sinus Pain, No Hoarseness, No sore throat, No Rhinorrhea, No Swallowing Difficulty Eyes: No Eye Pain, No Swelling, No Redness, No Foreign Body, No Discharge, No Vision Changes Cardiovascular : No Chest Pain, No SOB, No Dyspnea on Exertion, No Orthopnea, No Edema, No Palpitations Respiratory : No Cough, No Sputum, No Wheezing, No Smoke Exposure, No Dyspnea Gastrointestinal : No Nausea, No Vomiting, No Diarrhea, No Constipation, No abdominal Pain, No Hematochezia, No Melena Genitourinary : no irregular bleeding, No Dysuria, No Urinary Frequency, No Hematuria, No Urinary Incontinence, No Urgency, No Flank Pain, No Urinary Flow Changes, No Hesitancy Musculoskeletal : + right foot joint pain, No Myalgias, No Joint Swelling Skin : No Skin Lesions, No rash Neuro : No Weakness, No Numbness, No Paresthesias, No Loss of Consciousness, No Dizziness, No Headache Psych : No Anxiety/Panic, No Depression, No SI/HI/AH/VH, No Social Issues, Heme/Lymph: No Bruising, No Bleeding,No Lymphadenopathy Endocrine : No Polyuria, No Polydipsia, No Temperature Intolerance Yes all other systems are reviewed and are negative [facility] Past Medical History Attestation statement: The following information was validated with the patient. Source: old records reviewed and nursing notes reviewed Medical History Anxiety and depression Contracture, left hand Essential tremor Gout Hypercholesterolemia Hypertension Obesity (BMI 30-39.9) Type 2 diabetes mellitus with hyperglycemia Surgical History History of cholecystectomy History of sleeve gastrectomy History of tonsillectomy Family History Family History Father No problems noted. Mother No problems noted. 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 Blood pressure normal Heart rate normal. Respiration rate normal. Temperature normal. Oxygen saturation normal. Appearance: Alert. Oriented X3. No acute distress. Head: Normal external exam. Normocephalic. Atraumatic. Eyes: PERRLA. EOMI. Conjunctiva and sclera normal. Eyelids normal. ENT: Pharynx normal. Uvula midline. Moist mucous membranes. Neck: Normal inspection. Neck supple. FROM. CVS: Normal heart rate and rhythm. Respiratory: No respiratory distress. Painless inspiration. Skin: Skin warm and dry. Normal skin color. Normal skin turgor. No rashes/lesions/lacerations noted. Extremities: Patient moderate tenderness palpation over the 4th and 5th metatarsals with soft tissue swelling and some erythema noted. No induration/fluctuance or streaking foreign bodies noted. No obvious ligamentous or tendon injury noted to the right ankle/foot joint. Achilles tendon is intact. Negative Don test. Otherwise all other extremities exhibit normal range of motion nontender. There is no calf tenderness noted. There is no lower extremity edema noted. Neuro: Oriented X 3. No motor deficit. No sensory deficit. Reflexes normal. No focal neuro deficits noted. Vascular: + radial pulses/+ 2 distal pedal pulses/+2 dorsalis pedis b/l. Normal cap refill. No cyanosis noted to upper extremity nails and lower extremity toes nails. Course Course Course Narrative: Repeat x-rays negative for any acute processes. Although I am still to priors that there is no fracture as patient is very tender. He reports this is not consistent his gout. Therefore at this time will treat for possible cellulitis versus foot sprain and instructed follow-up with orthopedics he reports he has an appointment tomorrow and to return if any new or worsening symptoms. Patient understands agrees with this plan. MDM - Extremity Injury (Lower) Medical Records Attestation: I reviewed the patient's medical records. Imaging Data Right foot x-ray: Attestation: I personally reviewed and interpreted this imaging study as follows: Radiologist's impression: FINDINGS: There is felt to be degenerative change at the first MTP joint similar to previous exams. There is some evidence of bony erosion which may be chronic when compared to previous exam. There is no evidence for an acute fracture or dislocation. Spurring at the insertion of the Achilles is noted. Degenerative change at the level the ankle joint and scattered degenerative changes to the remainder of the foot ? XR/XR foot RT min 3V IMPRESSION: Degenerative changes here most noted in the first MTP joint. Areas of bony erosion which may be chronic. Inflammatory arthropathy would need to be considered. ? If further evaluation is warranted recommendation is MRI Discharge Plan Discharge Clinical Impression: Right foot sprain, Cellulitis Patient Disposition: Home, Self-Care Instructions: Cellulitis (ED), Foot Sprain (ED) Prescriptions: New doxycycline monohydrate 100 mg tablet 100 mg PO BID 10 Days Qty: 20 0RF cephalexin 500 mg capsule 500 mg PO Q6H 10 Days Qty: 40 0RF morphine 15 mg tablet 15 mg PO Q8H PRN (Reason: pain) Qty: 10 0RF Rx Instructions: Partial Fill upon patient request. No Action simvastatin 5 mg tablet 5 mg PO QPM Qty: 90 0RF diazepam [Valium] 5 mg tablet 5 mg PO ONCE PRN (Reason: anxiety) Qty: 1 0RF cholecalciferol (vitamin D3) 25 mcg (1,000 unit) tablet 25 mcg PO DAILY Qty: 90 0RF ibuprofen 600 mg tablet 600 mg PO Q8H PRN (Reason: pain) Qty: 30 0RF morphine 15 mg tablet 15 mg PO TID PRN (Reason: pain) Qty: 6 0RF Rx Instructions: partial fill okay; Partial Fill upon patient request. aspirin [Adult Aspirin Regimen] 81 mg tablet,delayed release (DR/EC) 81 mg PO DAILY colchicine [Colcrys] 0.6 mg tablet 0.6 mg PO DAILY Qty: 90 1RF (DME) compress.stocking,knee,reg,lrg Misc See Rx Instructions .ROUTE .MEDSUPPLY Qty: 2 0RF Rx Instructions: As directed metformin 500 mg tablet 500 mg PO DAILY Qty: 90 0RF ibuprofen 600 mg tablet 600 mg PO Q8H PRN (Reason: pain) Qty: 15 0RF escitalopram oxalate 20 mg tablet 20 mg PO DAILY Qty: 90 1RF pyridoxine (vitamin B6) 50 mg tablet 50 mg PO DAILY prednisone 20 mg tablet 20 mg PO DAILY 5 Days Qty: 5 0RF gabapentin 100 mg capsule 100 mg PO BEDTIME Qty: 14 0RF multivitamin Tablet 1 tab PO DAILY allopurinol 100 mg tablet 200 mg PO DAILY Qty: 60 3RF Rx Instructions: Allopurinol 200 mg to be taken with allopurinol 300 mg tablet to equal 500 mg daily allopurinol 300 mg tablet 300 mg PO DAILY Qty: 30 3RF Rx Instructions: Allopurinol 300 mg tablet to be taken with 200 mg of allopurinol to equal 500 mg daily Referrals: Dimitris,Randa Hinson MD [Primary Care Provider] - 1 day
== END 2022-04-14 18:46 | disposition home or self-care (01) ==
PROVIDERS: Emergency Provider Student in an Organized Health Care Education/Training Program; PCP Internal Medicine
DX: S93.601A Unspecified sprain of right foot, initial encounter (principal); L03.115 Cellulitis of right lower limb; X58.XXXA Exposure to other specified factors, initial encounter; Y93.9 Activity, unspecified; Y92.9 Unspecified place or not applicable; Y99.9 Unspecified external cause status; Z79.899 Other long term (current) drug therapy
CPT/HCPCS: 73630; 99283

== ENCOUNTER → 2022-04-15 08:25 | Outpatient (BNVA) | payer OTHER, SELFPAY | PROVIDERS: PCP Internal Medicine; Visit Provider Physician Assistant | DX: M23.91 Unspecified internal derangement of right knee (principal); M17.11 Unilateral primary osteoarthritis, right knee; L03.115 Cellulitis of right lower limb | CPT/HCPCS: 99212 ==

== ENCOUNTER 2022-04-24 13:51 | Outpatient (REF) | payer OTHER, SELFPAY ==
--- NOTE | ~2022-04-24 | US_ITS ---
EXAMINATION: US RETROPERITONEAL LIMITED (RENAL ONLY) CLINICAL INFORMATION: Calculus of kidney. COMPARISON: None TECHNIQUE: Real-time imaging of the kidneys. FINDINGS: RIGHT KIDNEY: 10.5 x 5.5 x 5.3 cm (SAG x AP x TRV). The kidney is normal in size, contour, and echogenicity. Renal cortical thickness is normal. No calculi or focal parenchymal lesions. No hydronephrosis. LEFT KIDNEY: 9.6 x 5.5 x 4.9 cm (SAG x AP x TRV). The kidney is normal in size, contour, and echogenicity. Renal cortical thickness is normal. No calculi or focal parenchymal lesions. No hydronephrosis. US/US renal BI IMPRESSION: Normal renal ultrasound.
== END 2022-04-24 13:52 | disposition home or self-care (01) ==
LOC: HO.HMGCX 13:51
PROVIDERS: PCP Internal Medicine
DX: N20.0 Calculus of kidney (principal)
CPT/HCPCS: 76775

== ENCOUNTER → 2022-04-26 14:17 | Outpatient (BNVA) | payer OTHER, SELFPAY | PROVIDERS: PCP Internal Medicine; Referring Provider Internal Medicine; Visit Provider Nurse Practitioner Family | DX: M10.421 Other secondary gout, right elbow (principal) | CPT/HCPCS: 99212 ==

== ENCOUNTER 2022-05-24 10:20 | Outpatient (REF) | payer OTHER, SELFPAY ==
[2022-05-24 11:26] LABS: Uric Acid 7.9 mg/dL (3.4-7.0)
[2022-05-24 11:47] LABS: Erythrocyte Sedimentation Rate 36 MM/HR (0-15)
== END 2022-05-24 10:21 | disposition home or self-care (01) ==
LOC: HO.10HDL 10:20
PROVIDERS: Visit Provider Nurse Practitioner Family
DX: M10.421 Other secondary gout, right elbow (principal)
CPT/HCPCS: 36415; 84550; 85652; 86140; 99212

== ENCOUNTER 2023-06-17 07:14 | Emergency (ER) | payer OTHER, SELFPAY ==
--- NOTE | ~2023-06-17 | XR_ITS ---
EXAMINATION: XR HAND, LEFT CLINICAL INFORMATION: Fall with pain COMPARISON: 03/27/2021 TECHNIQUE: PA, lateral, and oblique views of the left hand. FINDINGS: The bones and soft tissues are unremarkable. No acute fracture. Again seen is a well-corticated bony density adjacent to the ventral base of the middle phalanx of the third finger unchanged from prior. There is a tiny faint bony density seen adjacent to the terminal tuft of the second digit. This is only seen on one view. Please correlate with point tenderness at this region. Alignment is anatomic. Joint spaces are maintained. No erosions or chondrocalcinosis. XR/XR hand LT min 3V IMPRESSION: 1. No evidence of an acute fracture. 2. Tiny bony density seen adjacent to the terminal tuft of the second digit. Please correlate with point tenderness at this region.
[2023-06-17 07:23] VITALS: BP 135/78; PULSE 59; RESP 19; TEMP 36.6; O2SAT 100; BMI 34.7
--- NOTE | 2023-06-17 09:07 | ED_ITS ---
HPI - Extremity Problem General Chief complaint: Extremity Injury, Upper Stated complaint: L Hand Injury 06/16/23 Time Seen by Provider: 06/17/23 09:05 Source: patient, RN notes reviewed and old records reviewed Mode of arrival: ambulatory History of Present Illness HPI Narrative: 47-year-old male with a past medical history of diabetes, HTN, HLD, anxiety, gout, complaining of left hand pain, swelling and erythema s/p mechanical slip and fall yesterday. Denies symptoms prior to fall including lightheadedness/dizziness. States tripped and fall forward, FOOSH. denies head trauma or LOC, numbness/tingling, weakness, fever MD Complaint: extremity pain and extremity swelling Related Data Home Medications Medication Instructions Recorded Confirmed aspirin 81 mg tablet,delayed 81 mg PO DAILY 04/25/20 05/24/22 release (Adult Aspirin Regimen) multivitamin 1 tab PO DAILY 03/27/21 05/24/22 pyridoxine (vitamin B6) 50 mg 50 mg PO DAILY 11/27/21 05/24/22 tablet colchicine 0.6 mg tablet 0.6 mg PO BID 05/24/22 05/24/22 naproxen 500 mg tablet 500 mg PO BID 05/24/22 05/24/22 Previous Rx's Medication Instructions Recorded compress.stocking,knee,reg,lrg #2 ea 10/11/20 metformin 500 mg tablet 500 mg PO DAILY #90 tabs 03/20/21 simvastatin 5 mg tablet 5 mg PO QPM #90 tabs 07/18/21 cholecalciferol (vitamin D3) 25 25 mcg PO DAILY #90 tabs 04/11/22 mcg (1,000 unit) tablet ibuprofen 600 mg tablet 600 mg PO Q8H PRN pain #30 tabs 04/12/22 gabapentin 100 mg capsule 100 mg PO BEDTIME #14 caps 05/13/22 escitalopram oxalate 20 mg tablet 20 mg PO DAILY #90 tabs 07/29/22 allopurinol 300 mg tablet 600 mg (2 x 300 mg) PO DAILY #60 10/14/22 tabs cephalexin 500 mg capsule 500 mg PO QID 7 days #28 caps 06/17/23 naproxen 500 mg tablet 500 mg PO BID PRN pain 10 days #20 06/17/23 tabs prednisone 20 mg tablet 40 mg (2 x 20 mg) PO DAILY 5 days 06/17/23 #10 tabs Allergies Allergy/AdvReac Type Severity Reaction Status Date / Time latex [LATEX] Allergy Intermediate RASH Verified 06/17/23 07:23 acetaminophen [Tylenol] Allergy Unknown stomach Verified 06/17/23 07:23 upset amoxicillin Allergy Unknown nausea and Verified 06/17/23 07:23 vomiting Review of Systems 2 Review of Systems: Constitutional: No Fever, No Chills ENT/Mouth: No Ear Pain, No Nasal Congestion, No Rhinorrhea, No Swallowing Difficulty Cardiovascular: No Chest Pain, No SOB Respiratory: No Cough, No Sputum Gastrointestinal: No Nausea, No Vomiting, No Abdominal pain Musculoskeletal: +joint pain, No Myalgias, +Joint Swelling Skin: No Skin Lesions, No rash Neuro: No Weakness, No Numbness, No Paresthesias Yes all other systems are reviewed and are negative Constitutional: Constitutional: Reports as per [facility] Past Medical History Attestation statement: The following information was validated with the patient. Source: old records reviewed Onset Date is defined in the Problem List Problems that require an onset date and time if occurred within 24 hrs of arrival to the ED Aortic Dissection and Rupture; Neurologic impairment; Cardiopulmonary Arrest; Endotracheal Intubation; Insertion or Replacement of Mechanical Circulatory Assist Device Medical History (Updated 06/17/23 @ 11:32 by BREONNA Davenport) Obesity (BMI 30-39.9) Type 2 diabetes mellitus with hyperglycemia Hypertension Essential tremor Hypercholesterolemia Anxiety and depression Contracture, left hand Gout Surgical History (Updated 07/29/22 @ 15:05 by Randa Shanks MD) History of tonsillectomy History of cholecystectomy History of sleeve gastrectomy Family History Family History Father No problems noted. Mother No problems noted. 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 Current occupational exposures/hazards: No Cognitive needs: No Hearing needs: No Vision needs: No Physical Exam 2 Vital Signs: Vital Signs: Last Vital Signs Temp 98 F 06/17/23 07:23 Pulse 59 06/17/23 07:23 Resp 19 06/17/23 07:23 BP 135/78 06/17/23 07:23 Pulse Ox 100 06/17/23 07:23 O2 Del Method Room Air 06/17/23 07:23 BMI result Body Mass Index 34.7 Const: General: cooperative, healthy appearing and no acute distress O rientation/consciousness: patient oriented x3 Limitations: no limitations HEENT: Head: Yes normal to inspection and Yes atraumatic Ears: hearing grossly normal bilaterally General nose exam: Normal external nose present Face and sinus: Yes normal facial exam Eyes: General: appearance normal, both eyes and all related structures EOM: EOMs intact bilaterally Neck: Neck: Yes normal visual inspection and Yes no meningeal signs Resp: Effort & Inspection: normal respiratory effort and no respiratory distress Cardio: Rate: regular rate Peripheral pulses: radial pulses present and ulnar radial pulses present Skin: Rashes: no rashes Neuro: General: patient oriented x3, tone normal and no meningeal signs C ranial nerves: Yes CN's II-XII intact bilaterally Gait exam (Neuro): Normal gait present Extrem: Other: Please refer to images above. Left 2nd digit MCP with noted swelling/erythema and tenderness. Limited ROM secondary to pain. Neurovascularly intact. Finger to thumb opposition intact. No distal digit tenderness Course Course Course Narrative: XR hand LT min 3V IMPRESSION: 1. No evidence of an acute fracture. 2. Tiny bony density seen adjacent to the terminal tuft of the second digit. Please correlate with point tenderness at this region. > No point tenderness to distal tuft/digit. However finger splint applied for comfort -mild leukocytosis 11.6. H&H stable. ESR/CRP chronically elevated. Uric acid level elevated > will treat patient empirically for infection/cellulitis and gout. Low suspicion for fracture. Stressed importance of close up with Orthopedics Results discussed with patient including worrisome signs and symptoms and strict return precautions, and when to return to the emergency department. They verbalized understanding and feel safe for discharge at this time. Medical Decision Making Medical Decision Making MDM Narrative: 47-year-old male with a past medical history of diabetes, HTN, HLD, anxiety, gout, complaining of left hand pain, swelling and erythema s/p mechanical slip and fall yesterday. On exam vital signs stable, NAD, nontoxic appearing, physical exam as above, please refer to image. Concern for gout vs fracture vs cellulitis. Septic joint on differential however lower Plan: X-ray, labs control Please refer to course for remaining clinical decision making, interpretation of labs/imaging results, and discussions with consultants and/or family members. Differential Diagnosis Differential Diagnoses: The differential diagnosis associated with the presentation includes As above Admission/Observation Consideration of admission/observation: Escalation of care including admission/observation considered Lab Data MDM Lab Attestation statement: I reviewed the patient's lab results. 06/17/23 09:34 06/17/23 10:34 Labs: Lab Results 06/17/23 06/17/23 Range/Units 09:34 10:34 WBC 11.6 H (4.8-10.8) X10*3/uL RBC 4.35 L (4.60-5.80) X10*6/uL Hgb 12.8 L (14.0-18.0) g/dl Hct 39.4 L (42.0-52.0) % MCV 90.6 (80.0-98.0) fL MCH 29.4 (27.0-33.0) pg MCHC 32.5 (31.0-36.0) g/dl RDW 13.5 (11.0-16.0) % Plt Count 268 (160-400) X10*3/uL MPV 9.7 (9.4-12.4) fL Immature Gran % (Auto) 0.4 (0.0-0.4) % Neut % (Auto) 77.8 H (45-73) % Lymph % (Auto) 16.5 L (20-40) % [place] % (Auto) 3.8 (2-11) % Eos % (Auto) 1.1 (0-4) % Baso % (Auto) 0.4 (0-2) % Lymph # (Auto) 1.9 (1.2-4.9) X10*3/uL [place] # (Auto) 0.4 (0.1-1.2) X10*3/uL Eos # (Auto) 0.1 (0.0-0.4) X10*3/uL Baso # (Auto) 0.1 (0.0-0.2) X10*3/uL Abs Immat Gran (auto) 0.05 H (0.00-0.03) X10*3/uL Absolute Neuts (auto) 9.0 H (2.0-8.3) x10*3/uL Absolute Nucleated RBC 0.000 (0.0-0.012) X10*3/uL Nucleated RBC % (auto) 0.0 (0.0-0.2) /100WBC ESR 21 H (0-15) MM/HR Sodium 145 (135-145) mmol/L Potassium 4.0 (3.3-5.1) mmol/L Chloride 107 (96-108) mmol/L Carbon Dioxide 29 (22-29) mmol/L Anion Gap 13 (12-20) BUN 7 L (9-16) mg/dL Creatinine 0.85 (0.5-1.4) mg/dL Estim Creat Clear Calc 130.6 Estimated GFR > 60 Random Glucose 91 (60-115) mg/dL Uric Acid 8.0 H (3.4-7.0) mg/dL Calcium 9.3 (8.4-10.2) mg/dL C-Reactive Protein 0.89 H (< or = 0.50) mg/dL Independent Interpretation I performed an independent interpretation of an: Plain X-Ray Radiology Impression Discussion of test interpretation with radiology: I have reviewed the radiologist's reading. External Record Review External record reviewed: Inpatient record, Office record, Outpatient record, Prior outpatient labs, Prior outpatient radiology, Primary care record and Outside ED record Tests considered The following testing was considered but not selected: As above Prescription Management I considered prescription management with: Pain Medication and Antibiotic Chronic Conditions Patient?s care impacted by: Diabetes and Other Discharge Plan Discharge Clinical Impression: Cellulitis, Gout Patient Disposition: Home, Self-Care Instructions: Cellulitis (DC), Gout (ED) Additional Instructions: Your blood work and x-ray are reassuring. We are treating you for infection and gout Naproxen as anti-inflammatory/pain medicine take with food Were spun as needed for comfort Follow-up with her doctor and Orthopedics If redness/swelling is spreading or pain becomes unbearable return to the ED Prescriptions: New prednisone 20 mg tablet 40 mg PO DAILY 5 Days Qty: 10 0RF cephalexin 500 mg capsule 500 mg PO QID 7 Days Qty: 28 0RF naproxen 500 mg tablet 500 mg PO BID PRN (Reason: pain) 10 Days Qty: 20 0RF No Action simvastatin 5 mg tablet 5 mg PO QPM Qty: 90 0RF cholecalciferol (vitamin D3) 25 mcg (1,000 unit) tablet 25 mcg PO DAILY Qty: 90 0RF gabapentin 100 mg capsule 100 mg PO BEDTIME Qty: 14 0RF allopurinol 300 mg tablet 600 mg PO DAILY Qty: 60 5RF ibuprofen 600 mg tablet 600 mg PO Q8H PRN (Reason: pain) Qty: 30 0RF aspirin [Adult Aspirin Regimen] 81 mg tablet,delayed release (DR/EC) 81 mg PO DAILY (DME) compress.stocking,knee,reg,lrg Misc See Rx Instructions .ROUTE .MEDSUPPLY Qty: 2 0RF Rx Instructions: As directed metformin 500 mg tablet 500 mg PO DAILY Qty: 90 0RF pyridoxine (vitamin B6) 50 mg tablet 50 mg PO DAILY escitalopram oxalate 20 mg tablet 20 mg PO DAILY Qty: 90 1RF multivitamin Tablet 1 tab PO DAILY naproxen 500 mg tablet 500 mg PO BID colchicine 0.6 mg tablet 0.6 mg PO BID Referrals: [facility] [place] [facility] [Provider Group] Randa Shanks MD [Primary Care Provider] - Stand Alone Forms: Work/School Release
[2023-06-17 09:40] LABS: MANUAL DIFF FLAG NO
[2023-06-17 09:43] LABS: Basophils Absolute Auto 0.1 X10*3/uL (0.0-0.2); Basophils Percent Auto 0.4 % (0-2); Eosinophils Absolute Auto 0.1 X10*3/uL (0.0-0.4); Eosinophils Percent Auto 1.1 % (0-4); Hematocrit 39.4 % (42.0-52.0); Hemoglobin 12.8 g/dl (14.0-18.0); Imm Gran Abs Auto 0.05 X10*3/uL (0.00-0.03); Imm Gran Pct Auto 0.4 % (0.0-0.4); Lymphocytes Absolute Auto 1.9 X10*3/uL (1.2-4.9); Lymphocytes Percent Auto 16.5 % (20-40); Mean Corpuscular HGB Conc 32.5 g/dl (31.0-36.0); Mean Corpuscular Hemoglobin 29.4 pg (27.0-33.0); Mean Corpuscular Volume 90.6 fL (80.0-98.0); Mean Platelet Volume 9.7 fL (9.4-12.4); Monocytes Absolute Auto 0.4 X10*3/uL (0.1-1.2); Monocytes Percent Auto 3.8 % (2-11); Neutrophils Percent Auto 77.8 % (45-73); Platelet Count 268 X10*3/uL (160-400); Red Blood Count 4.35 X10*6/uL (4.60-5.80); Red Cell Distribution Width 13.5 % (11.0-16.0); White Blood Count 11.6 X10*3/uL (4.8-10.8)
[2023-06-17 10:27] LABS: Erythrocyte Sedimentation Rate 21 MM/HR (0-15)
[2023-06-17 11:08] LABS: Blood Urea Nitrogen 7 mg/dL (9-16); C Reactive Protein 0.89 mg/dL (< or = 0.50); Calcium 9.3 mg/dL (8.4-10.2); Carbon Dioxide 29 mmol/L (22-29); Chloride 107 mmol/L (96-108); Creatinine Clr Calc Pharmacy 130.6; Estimated Glomerular Filt Rate > 60; Glucose Random 91 mg/dL (60-115); Sodium 145 mmol/L (135-145)
[2023-06-17 11:28] LABS: Anion Gap 13 (12-20)
[2023-06-17] MEDS: Ketorolac Tromethamine 30 MG/ML VIAL IM (11:43)
== END 2023-06-17 12:37 | disposition home or self-care (01) ==
PROVIDERS: Physician Assistant; Emergency Provider Emergency Medicine Emergency Medical Services; PCP Internal Medicine
DX: L03.114 Cellulitis of left upper limb (principal); M10.042 Idiopathic gout, left hand; Z79.899 Other long term (current) drug therapy
CPT/HCPCS: 36415; 73130; 80048; 84550; 85025; 85652; 86140; 96372; 99283; 99284; J1885

== ENCOUNTER 2023-06-26 15:25 | Outpatient (AMB) | payer OTHER, SELFPAY ==
[2023-06-26 15:52] VITALS: BP 126/68; PULSE 69; TEMP 36.7; O2SAT 97; BMI 36.6
--- NOTE | 2023-06-26 15:52 | MHC.OFFWIV ---
Intake Vital Signs 06/26/23 15:52 Height 5 ft 9 in Weight 248 lb 2 oz BMI 36.6 BP 126/68 Blood Pressure Location Lt brachial Position Sitting Pulse 69 Pulse Source Pulse Oximeter Temp 98.1 F Temp Source Oral Pulse Oximetry (%) 97 Oxygen Delivery Method Room Air Intake Visit Reasons: EST/cellulitis right hand (lobby) Patient Tobacco Use Status: Never used Tobacco Allergies latex [LATEX] Allergy (Intermediate, Verified 06/17/23 07:23) RASH acetaminophen [Tylenol] Allergy (Unknown, Verified 06/17/23 07:23) stomach upset amoxicillin Allergy (Unknown, Verified 06/17/23 07:23) nausea and vomiting Do you need a note to return to daycare/school/sports/work: No HPI HPI Comments History of Present Illness Details 47 y/o male presents to walk in clinic with c/o right hand pain. Pt has h/o Gout and RA. He is being followed by RA specialist and currently on medications. Pt reports that he was diagnosed with Cellulites on 06/17/2023 and he completed Abx course. 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 He has been trying to see PCP, but no sooner openings. [facility] Medical History (Updated 06/18/23 @ 00:01 by Jayesh Lozano) Obesity (BMI 30-39.9) Type 2 diabetes mellitus with hyperglycemia Hypertension Essential tremor Hypercholesterolemia Anxiety and depression Contracture, left hand Gout Surgical History (Updated 07/29/22 @ 15:05 by Randa Shanks MD) History of tonsillectomy History of cholecystectomy History of sleeve gastrectomy Family History Father No problems noted. Mother No problems noted. 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 Current occupational exposures/hazards: No Cognitive needs: No Hearing needs: No Vision needs: No Review of Systems Const All systems reviewed & are unremarkable except as noted in HPI and below Physical Exam Vital Signs: Last Vital Signs Temp 98.1 F 06/26/23 15:52 Pulse 69 06/26/23 15:52 BP 126/68 06/26/23 15:52 Pulse Ox 97 06/26/23 15:52 Oxygen Delivery Method Room Air 06/26/23 15:52 BMI result Body Mass Index 36.6 Extrem Right upper extremity: Extremity exam: right hand (Normal color to skin, warm to touch, no redness, mild swelling and tender) Details: normal capillary refill, abnormal ROM of finger Details: unable to flex or extend Location: of the thumb and swelling Location: of the thumb (limited ROM of fingers due to pain) Location: at the IP joint Left upper extremity: normal to inspection and hand Assessment & Plan Assessment & Plan (1) Left hand pain: Code(s): M79.642 - Pain in left hand Plan: -Continue on your current regiment - Not cellulitis, ?? Gout or RA flare up - F/U with RA specialist - F/U with PCP. Plan -Continue on your current regiment - Not cellulitis, ?? Gout or RA flare up - F/U with RA specialist - F/U with PCP. Coding Level of Care Code Est Pt Level 2 (64866) Diagnoses Left hand pain M79.642 Time Spent (min) 15
== END 2023-06-26 16:18 | disposition home or self-care (01) ==
PROVIDERS: PCP Internal Medicine; Visit Provider Nurse Practitioner Family
DX: M79.642 Pain in left hand (principal)
CPT/HCPCS: 99212

== ENCOUNTER → 2023-07-04 13:00 | Outpatient (BNV) | payer OTHER, SELFPAY | PROVIDERS: PCP Internal Medicine; Visit Provider Internal Medicine | DX: E11.65 Type 2 diabetes mellitus with hyperglycemia (principal) | CPT/HCPCS: 83036 ==

== ENCOUNTER 2023-11-12 11:44 | Outpatient (AMB) | payer OTHER, SELFPAY ==
[2023-11-12 11:49] VITALS: BP 130/68; PULSE 76; O2SAT 100; BMI 36.0
--- NOTE | 2023-11-12 11:49 | A.OFFPC_ITS ---
Vital Signs 11/12/23 11:49 Height 5 ft 9 in Weight 110.677 kg BMI 36.0 BP 130/68 Blood Pressure Location Lt brachial Position Sitting Pulse 76 Pulse Source Pulse Oximeter Pulse Oximetry (%) 100 Oxygen Delivery Method Room Air Intake Visit Reasons: Sunshine Bashir latex [LATEX] Allergy (Intermediate, Verified 11/12/23 11:50) RASH acetaminophen [Tylenol] Allergy (Unknown, Verified 11/12/23 11:50) stomach upset amoxicillin Allergy (Unknown, Verified 11/12/23 11:50) nausea and vomiting Medication List - Last Reconciled 11/12/23 by Randa Shanks MD allopurinol 600 mg (2 x 300 mg) PO DAILY cholecalciferol (vitamin D3) 25 mcg PO DAILY compress.stocking,knee,reg,lrg As directed cyclobenzaprine 5 mg PO TID PRN ibuprofen 600 mg PO Q8H PRN metformin 500 mg PO DAILY multivitamin 1 tab PO DAILY pyridoxine (vitamin B6) 50 mg PO DAILY Tobacco use date assessed: 11/12/23 Dental Screening Dental Screen Date: 11/12/23 Did you have a dental visit in the last 12 months?: Yes Did you have a dental problem in the last 6 months where you did not have access to dental care?: No Was dental information given to patient?: Patient has dentist REBECCA Gonsalez HPI Details 47-year-old obese male with diabetes francesco litus hypertension hypercholesterolemia patient has a history of sleeve gastrectomy patient also has generalized anxiety disorder last seen in 07/29/2022. Patient is here for follow-up has been advised guarding colon cancer screening. Review of the notes was recently in the ER for hematuria treated for UTI with Macrodantin patient had flank pains which steroid and cyclobenzaprine was prescribed. Patient was also seen by the Urgent Center in 06/28/2023 for right hand swelling concern about gout flare-up. Had an ER visit also in 02/26/2023 for left ankle injury slipped on the sidewalk soft tissue swelling medial aspect of the ankle diagnosis of left ankle sprain [facility] Medical History (Updated 11/12/23 @ 12:19 by Randa Shanks MD) Obesity (BMI 30-39.9) Type 2 diabetes mellitus with hyperglycemia Hypertension Essential tremor Hypercholesterolemia Anxiety and depression Contracture, left hand Gout Surgical History (Updated 07/29/22 @ 15:05 by Randa Shanks MD) History of tonsillectomy History of cholecystectomy History of sleeve gastrectomy Family History Father No problems noted. Mother No problems noted. 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 1. Little interest or pleasure in doing things: not at all 2. Feeling down, depressed, or hopeless: not at all 3. Trouble falling or staying asleep, or sleeping too much: not at all 4. Feeling tired or having little energy: not at all 5. Poor appetite or overeating: not at all 6. Feeling bad about yourself - or that you are a failure or have let yourself or your family down: not at all 7. Trouble concentrating on things, such as reading the newspaper or watching television: not at all 8. Moving or speaking so slowly that other people could have noticed. Or the opposite - being so fidgety or restless that you have been moving around a lot more than usual: not at all 9. Thoughts that you would be better off or of hurting yourself in some way: not at all Total score: 0 Depression Screening Interpretation: Negative Depression Screening Done: Yes Source: Developed by Drs. Jason Capellan, Luisana Bernstein, Shahid Dorman and colleagues, with an educational hemalatha from [employer]. Thrive Questionnaire Date Thrive assessed: 11/12/23 I am a: Patient What is your living situation today?: I have a steady place to live Within the past 12 months, did the food you bought not last and you didn't have the money to get more?: Never true Within the past 12 months, did you worry whether your food would run out before you got money to buy more?: Never true Do you have trouble paying for medicines?: No Do you have trouble getting transportation to medical appointments?: No Do you have trouble paying your heating and electricity bill?: No Do you have trouble taking care of your child, family member or friend?: No Do you have trouble with day-to-day activities such as bathing, preparing meals, shopping, managing finances, etc.?: No Are you currently unemployed and looking for a job?: No Are you interested in more education?: No Currently or been in a relationship where the following occur: no concerns reported THRIVE Score: 0 AUDIT C Alcohol Use Questionnaire (AUDIT-C) 1. How often do you have a drink containing alcohol?: 2-3 times a week 2. How many drinks containing alcohol do you have on a typical day when you are drinking?: 1 or 2 3. How often do you have six or more drinks on one occasion?: Never Total Score: 3 Score Reviewed/Action Taken: Yes HIMA-7 AMB Questionnaire HIMA-7 Date HIMA - 7 assessed: 11/12/23 Feeling nervous, anxious, or on edge: 0 = Not at all Not being able to stop or control worryin = Not at all Worrying too much about different things: 0 = Not at all Trouble relaxin = Not at all Being so restless that it is hard to sit still: 0 = Not at all Becoming easily annoyed or irritable: 0 = Not at all Feeling afraid as if something awful might happen: 0 = Not at all Total HIMA-7 score (0-4 normal; 5-9 mild; 10-14 moderate; 15-21 severe): 0 Source: Developed by Drs. Jason Capellan, Luisana Bernstein, Shahid Dorman and colleagues, with an educational hemalatha from [employer]. HIMA-7 Assessment Billing HIMA-7 Assessment Tool: HIMA-7 Assessment 25018 Physical exam (Primary Care) Vital Signs: Last Vital Signs Pulse 76 11/12/23 11:49 BP 130/68 11/12/23 11:49 Pulse Ox 100 11/12/23 11:49 Oxygen Delivery Method Room Air 11/12/23 11:49 BMI result Body Mass Index 36.0 Tobacco/Smoking Status: Tobacco use Status Tobacco use date assessed 11/12/23 11/12/23 11:57 Patient Tobacco Use Status Never used Tobacco 11/12/23 11:57 e-Cigarette/Vaping Use Never Used 11/12/23 11:57 PHQ-9: PHQ-9 Score PHQ-9: Total score 0 11/12/23 12:10 Depression Screening Interpretation: Negative Thrive Assessment: Date of Thrive Assessment Date Thrive assessed 11/12/23 11/12/23 11:57 Currently or been in a relationship where the following occur: no concerns reported Const General: alert; No acute distress Eyes Conjunctivae: conjunctivae normal Resp Auscultation: clear to auscultation bilaterally Cardio Rate: regular rate Rhythm: regular rhythm GI Inspection: Yes normal to inspection Extrem General: Yes normal to inspection and No edema Results AMB Urinalysis, Automated UA Leukoctes 500 [place]/uL Last Edit by Olga Davis [employer] on 11/12/23 13: 00 UA Nitrite Negative Last Edit by Olga Davis, [facility] on 11/12/23 13:00 UA Urobilinogen 0.2 mg/dL Last Edit by Olga Davis, [facility] on 11/12/23 13:00 UA Protein 0 mg/dL Last Edit by Olga Davis, [facility] on 11/12/23 13:00 UA pH 6.0 Last Edit by Olga Davis, [facility] on 11/12/23 13:00 UA Blood 10 [place]/uL Last Edit by Olga Davis, [facility] on 11/12/23 13:00 UA Specific [place] 1.015 Last Edit by Olga Davis [facility] on 11/12/23 13:00 UA Ketone Negative Last Edit by Olga Davis, [facility] on 11/12/23 13:00 UA Bilirubin 0 mg/dL Last Edit by Olga Davis [facility] on 11/12/23 13:00 UA Glucose 0 mg/dL Last Edit by Olga Davis [facility] on 11/12/23 13:00 Assessment and Plan Assessment & Plan (1) UTI (urinary tract infection): Code(s): N39.0 - Urinary tract infection, site not specified Plan: Discussed with the patient concerns about having urinary tract infection. This needs to be evaluated. (2) Anemia: Code(s): D64.9 - Anemia, unspecified Plan: This needs to be retested and colon cancer screening recommended (3) Colon cancer screening: Code(s): Z12.11 - Encounter for screening for malignant neoplasm of colon Plan: Reminded about colon cancer screening (4) History of sleeve gastrectomy: Comment: 03/2019 Dr. Granda Code(s): Z90.3 - Acquired absence of stomach [part of] Plan: Keep active eat healthy (5) Obesity (BMI 30-39.9): Code(s): E66.9 - Obesity, unspecified Plan: Diet and exercise (6) Gout: Code(s): M10.9 - Gout, unspecified Qualifiers: Chronicity: acute Gout etiology: other secondary cause Gout site: elbow Laterality: right Qualified Code(s): M10.421 - Other secondary gout, right elbow Plan: Low purine diet and keep well hydrated on allopurinol (7) Type 2 diabetes mellitus with hyperglycemia: Comment: [facility] Code(s): E11.65 - Type 2 diabetes mellitus with hyperglycemia Qualifiers: Diabetes mellitus usp insulin use: without box person use Qualified Code(s): E11.65 - Type 2 diabetes mellitus with hyperglycemia Plan: Decrease the amount of carbohydrate intake, pasta, bread, rice and potatoes are all sugar and that is aside from all the sweet stuff, remember that fruits are good but they are Sweet also. Hemoglobin A1c goal of less than 6.5 on metformin 500 mg once a day AIC GOOD (8) Hypercholesterolemia: Code(s): E78.00 - Pure hypercholesterolemia, unspecified Plan: Avoid fried foods, chicken skin, eggs, butter margarine, pastries and meat. Be it pork or beef they have a lot of cholesterol LDL goal of less than 100 and triglyceride of less than 150 patient needs blood work (9) Generalized anxiety disorder: Code(s): F41.1 - Generalized anxiety disorder Plan: stable (10) Low back pain: Code(s): M54.50 - Low back pain, unspecified Plan: patient is sent for Physical therapy Orders: Orders AMB Urinalysis Automated Today N39.0 - Urinary tract infection, site not specified, Z13.9 - Encounter for screening, unspecified Complete Blood Count Auto Diff Today E11.65 - Type 2 diabetes mellitus with hyperglycemia Comprehensive Met. Panel Today E11.65 - Type 2 diabetes mellitus with hyperglycemia Creatinine Urine Today E11.65 - Type 2 diabetes mellitus with hyperglycemia Lipid Panel Today E11.65 - Type 2 diabetes mellitus with hyperglycemia, E78.00 - Pure hypercholesterolemia, unspecified PT Evaluation and Treatment Today M54.50 - Low back pain, unspecified Uric Acid Today M10.9 - Gout, unspecified Free T4 (Free Thyroxine) Today E11.65 - Type 2 diabetes mellitus with hyperglycemia Microalbumin, Random (w Creat) Today E11.65 - Type 2 diabetes mellitus with hyperglycemia Thyroid Stimulating Hormone Today E11.65 - Type 2 diabetes mellitus with hyperglycemia Vitamin B12 and Folate Today E11.65 - Type 2 diabetes mellitus with hyperglycemia Ferritin Today E11.65 - Type 2 diabetes mellitus with hyperglycemia Reticulocyte Count Today E11.65 - Type 2 diabetes mellitus with hyperglycemia IRON PROFILE Today E11.65 - Type 2 diabetes mellitus with hyperglycemia Referrals Urology Referral N39.0 - Urinary tract infection, site not specified Gastroenterology Referral Z12.11 - Encounter for screening for malignant neoplasm of colon Medications: New cyclobenzaprine 5 mg PO TID PRN 30 tabs 0RF muscle spasm N39.0 - Urinary tract infection, site not specified Discontinued naproxen Discontinued Reason: Ancillary Entered New Order 500 mg PO BID 10 days PRN 20 tabs 0RF pain Coding Level of Care Code Est Pt Level 4 (45946) Complex EM visit Add On G2211 Diagnoses UTI (urinary tract infection) N39.0 Anemia D64.9 Colon cancer screening Z12.11 History of sleeve gastrectomy Z90.3 Obesity (BMI 30-39.9) E66.9 Other secondary acute gout of right elbow M10.421 Chronicity: acute Gout etiology: other secondary cause Gout site: elbow Laterality: right Type 2 diabetes mellitus with hyperglycemia, without long-term current use of insulin E11.65 Diabetes mellitus box person insulin use: without box person use Hypercholesterolemia E78.00 Generalized anxiety disorder F41.1 Low back pain M54.50 Additional Codes HIMA-7 Assessment Billing - HIMA-7 Assessment Tool: HIMA-7 Assessment 81292 ([id number]) PHQ-9 - 18091 - PHQ-9 Billing: ([id number])
== END 2023-11-12 12:34 | disposition home or self-care (01) ==
PROVIDERS: PCP Internal Medicine; Visit Provider Internal Medicine
DX: Z13.9 Encounter for screening, unspecified (principal); N39.0 Urinary tract infection, site not specified
CPT/HCPCS: 81003; 99214; G2211

== ENCOUNTER 2024-01-12 11:56 | Emergency (ER) | payer SELFPAY ==
--- NOTE | ~2024-01-12 | XR_ITS ---
EXAMINATION: XR FOOT, RIGHT CLINICAL INFORMATION: Right foot pain with history of gout COMPARISON: 04/14/2022 TECHNIQUE: AP, lateral, and oblique views of the right foot. FINDINGS: Compared to the prior study, there's been a marked worsening in appearances at the first MTP joint with increased soft tissue swelling and increasing periarticular erosions. No gouty tophi are seen. Some mild degenerative changes are seen in the midfoot and visualized ankle. Marked enthesopathy seen at the Achilles tendon insertion. No ankle joint effusion. XR/XR foot RT 2V IMPRESSION: Marked worsening in appearances at the first MTP joint with increased soft tissue swelling and increasing periarticular erosions. Findings are consistent with worsening gout.
--- NOTE | ~2024-01-12 | US_ITS ---
EXAMINATION: US VENOUS ULTRASOUND WITH DOPPLER LOWER EXTREMITY, RIGHT CLINICAL INFORMATION: Right lower extremity pain and swelling COMPARISON: None available. TECHNIQUE: Ultrasound of the deep veins is performed from the hip to the calf with compression sonography and color and pulse Doppler assessment. Spectral analysis with color-flow imaging is performed. FINDINGS: There is normal venous compression and respiratory variation and augmented flow. The visualized common femoral vein, superficial femoral vein, profunda femoral vein, popliteal vein, and the trifurcation region shows no evidence of deep venous thrombosis. Some prominent, but normal-appearing, right groin lymph nodes are seen measuring 2.5 x 0.7 x 1.8 cm and 3.8 x 0.9 x 1.6 cm. If the patient's symptoms persist, followup ultrasound in 5 days 7 days might be of value to exclude proximal propagation from a non-visualized calf vein. US/US venous duplex LE RT IMPRESSION: No DVT demonstrated in the right lower extremity. Prominent groin lymph nodes.
[2024-01-12 12:29] VITALS: BP 115/71; PULSE 71; RESP 18; TEMP 36.4; O2SAT 100; BMI 37.5
--- NOTE | 2024-01-12 12:33 | ED.GENADULT ---
HPI - General Adult General Chief complaint: Extremity Problem Stated complaint: swollen foot Time Seen by Provider: 01/12/24 13:17 Source: patient Mode of arrival: wheelchair Limitations: no limitations History of Present Illness ED Provider: Jsoe Duke PA-C HPI narrative: 48 year old male with PMH of gout, DM, HTN, osteoarthritis, generalized anxiety disorder, and anemia presents today with right foot pain and swelling, with severe pain and swelling in his right big toe. He denies an injury or trauma to the area. Patient states that pain began 2 days ago in his right big toe and he assumed that it was just due to his gout. He has had swelling similar to this before in the right big toe. Patient is currently taking Cochicine and Allopurinol. Patient states that yesterday he noticed that the swelling was spreading from his big toe to his entire foot and up the ankle, and that he felt that the entire right foot was feeling numb. States that he cant move ankle too much due to stiffness. He endorses redness to the area, numbness and denies warmth to the area. Patient has been taking Ibuprofen to help with the pain. Denies fevers, chills. Onset (ago): day(s) (2) Location: right and lower extremity (foot) Radiation: proximal Severity: moderate Quality: stabbing and aching Pain Consistency: constant Relieving factors: medication Exacerbating factors: movement Associated symptoms: denies other symptoms Treatments prior to arrival: NSAID (Ibuprofen at home) Related Data Home Medications ?Medication ?Instructions ?Recorded ?Confirmed multivitamin 1 tab PO DAILY 03/27/21 11/12/23 pyridoxine (vitamin B6) 50 mg 50 mg PO DAILY 11/27/21 11/12/23 tablet Previous Rx's ?Medication ?Instructions ?Recorded compress.stocking,knee,reg,lrg #2 ea 10/11/20 metformin 500 mg tablet 500 mg PO DAILY #90 tabs 03/20/21 cholecalciferol (vitamin D3) 25 25 mcg PO DAILY #90 tabs 04/11/22 mcg (1,000 unit) tablet ibuprofen 600 mg tablet 600 mg PO Q8H PRN pain #30 tabs 04/12/22 allopurinol 300 mg tablet 600 mg (2 x 300 mg) PO DAILY #60 10/14/22 tabs cyclobenzaprine 5 mg tablet 5 mg PO TID PRN muscle spasm #30 11/12/23 tabs prednisone 10 mg tablets in a dose See Taper PO DAILY #30 ea 01/12/24 pack Allergies Allergy/AdvReac Type Severity Reaction Status Date / Time latex [LATEX] Allergy Intermediate RASH Verified 01/12/24 12:31 acetaminophen [Tylenol] Allergy Unknown stomach Verified 01/12/24 12:31 upset amoxicillin Allergy Unknown nausea and Verified 01/12/24 12:31 vomiting Review of Systems Review of Systems: Yes all other systems are reviewed and are negative PENDING SALE TO [facility] Past Medical History Medical History (Updated 01/12/24 @ 14:51 by BREONNA Pierre) Obesity (BMI 30-39.9) Type 2 diabetes mellitus with hyperglycemia Hypertension Essential tremor Hypercholesterolemia Anxiety and depression Contracture, left hand Gout Surgical History (Updated 07/29/22 @ 15:05 by Randa Shanks MD) History of tonsillectomy History of cholecystectomy History of sleeve gastrectomy Family History Family History Father No problems noted. Mother No problems noted. Social History Social History Household Members: None Housing: Apartment Alcohol intake: current Alcohol intake frequency: a few times a week Patient Tobacco Use Status: Never used Tobacco e-Cigarette/Vaping Use: Never Used Second Hand Smoke Exposure: No Advance Directives: No Advance Directives Information Provided: No service: No Current occupational status: employed Current occupation: [employer] Current occupational exposures/hazards: No Cognitive needs: No Hearing needs: No Vision needs: No Physical Exam ED Vital Signs: Vital Signs - 24 hr 01/12/24 12:29 01/12/24 16:41 Temperature 97.6 F 97.6 F Pulse Rate 71 71 Respiratory Rate 18 18 Blood Pressure 115/71 115/71 Pulse Oximetry 100 100 Oxygen Delivery Method Room Air Room Air BMI result Body Mass Index 37.5 Appearance: Alert. Oriented X3. No acute distress. HEENT: normal inspection CVS: Normal heart rate and rhythm. Pulse 1+ in right dorsalis pedis, due to swelling Respiratory: No respiratory distress. Skin: Skin warm and dry. Normal skin color. Normal skin turgor. No rashes. Slight erythema noted on right lower extremity in the foot and ankle, severe erythema to 1st metatarsal joint with swelling. Extremities: Slight erythema noted on right lower extremity in the foot and ankle, severe erythema to right 1st metatarsal joint with swelling. Swelling noted throughout entire right foot up to ankle, ROM of ankle limited, can move digits 2-5 of right foot, 1st digit is immovable due to swelling and pain. Slight warmth to area on palpitation, and pain to 1st metacarpal with palpation. Neuro: Oriented X 3. No motor deficit. No sensory deficit. Course Course Course Narrative: RME: done sh[facility] [place]. 48-year-old male history of gout and diabetes presents to ED for right foot swelling and redness with pain. Patient states this is not his usual typical gout exacerbation due to foot being more swollen and red than usual. Patient states no new trauma. Patient states no chest pain or shortness of breath. Patient denies any recent surgery. Exam positive for right foot swelling with tenderness and pitting edema. Due to history of diabetes we will do labs x-ray would like there is no osteo. Ultrasound ordered. Uric acid ordered. Medications Administered Discontinued Medications Generic Name Dose Route Start Last Admin Trade Name Freq PRN Reason Stop Dose Admin Ketorolac Tromethamine 30 mg 01/12/24 14:49 01/12/24 14:57 Ketorolac Tromethamine 30 Mg/Ml Vial IM 01/12/24 14:50 30 mg ONCE ONE Administration Prednisone 50 mg 01/12/24 14:49 01/12/24 14:58 Prednisone 10 Mg Tablet PO 01/12/24 14:50 50 mg ONCE ONE Administration Medical Decision Making Medical Decision Making [facility] Narrative: 48 year old male with PMH of gout, DM, HTN, osteoarthritis, generalized anxiety disorder, and anemia presents today with right foot pain and swelling, with severe pain and swelling in his right big toe. exam and clinical presentation are c/w gout. no evidence of diabetic foot wound. no fevers. no leukocytosis on lab workup. his uric acid is chronically high. he lost his insurance so he is no longer following w/ rheum. X-ray shows findings consistent with worsening gout. Ultrasound is negative for acute DVT. Low suspicion for diabetic wound or cellulitis. Will hold off on antibiotics. His glucose is 97 on his chemistry. Will prescribe prednisone taper for his gout. We discussed the importance of outpatient follow-up with Rheumatology, diet compliance and medication compliance. He expressed understanding is stable for discharge home. Differential Diagnosis Differential Diagnoses: The differential diagnosis associated with the presentation includes Gout Flare-up, Ankle fracture, metatarsal fracture, DVT, diabetic neuropathy, diabetic foot wound, DVT less likely Admission/Observation Consideration of admission/observation: Escalation of care including admission/observation considered Lab Data MDM Lab Attestation statement: I reviewed the patient's lab results. no leukocytosis, mild stable anemia, elevated UA, chronic 01/12/24 12:57 01/12/24 12:57 Labs: Lab Results 01/12/24 Range/Units 12:57 WBC 8.4 (4.8-10.8) X10*3/uL RBC 4.04 L (4.60-5.80) X10*6/uL Hgb 12.0 L (14.0-18.0) g/dl Hct 36.5 L (42.0-52.0) % MCV 90.3 (80.0-98.0) fL MCH 29.7 (27.0-33.0) pg MCHC 32.9 (31.0-36.0) g/dl RDW 13.0 (11.0-16.0) % Plt Count 257 (160-400) X10*3/uL MPV 9.1 L (9.4-12.4) fL Immature Gran % (Auto) 0.2 (0.0-0.4) % Neut % (Auto) 67.7 (45-73) % Lymph % (Auto) 23.5 (20-40) % [place] % (Auto) 6.0 (2-11) % Eos % (Auto) 2.0 (0-4) % Baso % (Auto) 0.6 (0-2) % Lymph # (Auto) 2.0 (1.2-4.9) X10*3/uL [place] # (Auto) 0.5 (0.1-1.2) X10*3/uL Eos # (Auto) 0.2 (0.0-0.4) X10*3/uL Baso # (Auto) 0.1 (0.0-0.2) X10*3/uL Abs Immat Gran (auto) 0.02 (0.00-0.03) X10*3/uL Absolute Neuts (auto) 5.7 (2.0-8.3) x10*3/uL Absolute Nucleated RBC 0.000 (0.0-0.012) X10*3/uL Nucleated RBC % (auto) 0.0 (0.0-0.2) /100WBC ESR 59 H (0-15) MM/HR PT 11.3 (11.1-13.3) SEC INR 0.9 (0.9-1.1) APTT 33.5 (26.0-36.8) SEC Sodium 143 (135-145) mmol/L Potassium 4.6 (3.3-5.1) mmol/L Chloride 105 (96-108) mmol/L Carbon Dioxide 31 H (22-29) mmol/L Anion Gap 12 (12-20) BUN 13 (9-16) mg/dL Creatinine 0.89 (0.5-1.4) mg/dL Estim Creat Clear Calc 128.4 Estimated GFR > 60 Random Glucose 97 (60-115) mg/dL Uric Acid 8.9 H (3.4-7.0) mg/dL Calcium 10.3 H D (8.4-10.2) mg/dL Total Bilirubin 0.4 (0.0-1.0) mg/dL AST 21 (5-37) U/L ALT 13 (0-40) U/L Alkaline Phosphatase 72 (39-117) U/L C-Reactive Protein 3.39 H (< or = 0.50) mg/dL Total Protein 7.3 (6.5-8.0) g/dL Albumin 3.9 (3.5-5.0) g/dL Independent Interpretation I performed an independent interpretation of an: Plain X-Ray Interpretation: xr without acute fracture, 1st MTP w/ joint destruction agree w/ radiology read us without acute dvt Radiology Impression Discussion of test interpretation with radiology: I have reviewed the radiologist's reading. Radiologist Impression: EXAMINATION: XR FOOT, RIGHT CLINICAL INFORMATION: Right foot pain with history of gout COMPARISON: 04/14/2022 TECHNIQUE: AP, lateral, and oblique views of the right foot. FINDINGS: Compared to the prior study, there's been a marked worsening in appearances at the first MTP joint with increased soft tissue swelling and increasing periarticular erosions. No gouty tophi are seen. Some mild degenerative changes are seen in the midfoot and visualized ankle. Marked enthesopathy seen at the Achilles tendon insertion. No ankle joint effusion. XR/XR foot RT 2V IMPRESSION: Marked worsening in appearances at the first MTP joint with increased soft tissue swelling and increasing periarticular erosions. Findings are consistent with worsening gout. XAMINATION: US VENOUS ULTRASOUND WITH DOPPLER LOWER EXTREMITY, RIGHT CLINICAL INFORMATION: Right lower extremity pain and swelling COMPARISON: None available. TECHNIQUE: Ultrasound of the deep veins is performed from the hip to the calf with compression sonography and color and pulse Doppler assessment. Spectral analysis with color-flow imaging is performed. FINDINGS: There is normal venous compression and respiratory variation and augmented flow. The visualized common femoral vein, superficial femoral vein, profunda femoral vein, popliteal vein, and the trifurcation region shows no evidence of deep venous thrombosis. Some prominent, but normal-appearing, right groin lymph nodes are seen measuring 2.5 x 0.7 x 1.8 cm and 3.8 x 0.9 x 1.6 cm. If the patient's symptoms persist, followup ultrasound in 5 days 7 days might be of value to exclude proximal propagation from a non-visualized calf vein. US/US venous duplex LE RT IMPRESSION: No DVT demonstrated in the right lower extremity. Prominent groin lymph nodes. External Record Review External record reviewed: Outpatient record, Prior outpatient labs and Prior outpatient radiology Prescription Management I considered prescription management with: Pain Medication and Antibiotic Chronic Conditions Patient?s care impacted by: Diabetes and Other (gout) Critical Care Time Critical Care Time Critical Care Time: No Discharge Plan Discharge Clinical Impression: Gout Qualifiers: Gout site: elbow Gout etiology: other secondary cause Chronicity: acute Laterality: right Qualified Code(s): M10.421 - Other secondary gout, right elbow Patient Disposition: Home, Self-Care Instructions: Low Purine Diet (ED), Gout (ED) Additional Instructions: take the prescribed prednisone taper as prescribed. 1st dose is due tomorrow, you were given a dose today in the ER follow up with your rheumatolgist as soon as possible it is important to adhere to a low purine diet - see attached If you develop new or worsening symptoms call 911 or come back to the ER for further evaluation. EXAMINATION: XR FOOT, RIGHT CLINICAL INFORMATION: Right foot pain with history of gout COMPARISON: 04/14/2022 TECHNIQUE: AP, lateral, and oblique views of the right foot. FINDINGS: Compared to the prior study, there's been a marked worsening in appearances at the first MTP joint with increased soft tissue swelling and increasing periarticular erosions. No gouty tophi are seen. Some mild degenerative changes are seen in the midfoot and visualized ankle. Marked enthesopathy seen at the Achilles tendon insertion. No ankle joint effusion. XR/XR foot RT 2V IMPRESSION: Marked worsening in appearances at the first MTP joint with increased soft tissue swelling and increasing periarticular erosions. Findings are consistent with worsening gout. Prescriptions: New prednisone 10 mg tablets,dose pack See Taper PO DAILY Qty: 30 0RF Taper: Prednisone 40 mg daily for 3 Days and 0 Hour 30 mg daily for 3 Days and 0 Hour 20 mg daily for 3 Days and 0 Hour 10 mg daily for 3 Days and 0 Hour Rx Instructions: 40 mg Daily x3 days, 30 mg daily x3 days, 20 mg daily x3 days, 10 mg daily x3 days No Action cholecalciferol (vitamin D3) 25 mcg (1,000 unit) tablet 25 mcg PO DAILY Qty: 90 0RF allopurinol 300 mg tablet 600 mg PO DAILY Qty: 60 5RF ibuprofen 600 mg tablet 600 mg PO Q8H PRN (Reason: pain) Qty: 30 0RF (DME) compress.stocking,knee,reg,lrg Misc See Rx Instructions .ROUTE .MEDSUPPLY Qty: 2 0RF Rx Instructions: As directed metformin 500 mg tablet 500 mg PO DAILY Qty: 90 0RF cyclobenzaprine 5 mg tablet 5 mg PO TID PRN (Reason: muscle spasm) Qty: 30 0RF pyridoxine (vitamin B6) 50 mg tablet 50 mg PO DAILY multivitamin Tablet 1 tab PO DAILY Interventions: ED Discharge Assessment Last Done: 01/12/24 16:41 Discharge Date/Time: 01/12/24 16:41 Print Language: British
[2024-01-12 13:04] LABS: MANUAL DIFF FLAG NO
[2024-01-12 13:05] LABS: Basophils Absolute Auto 0.1 X10*3/uL (0.0-0.2); Basophils Percent Auto 0.6 % (0-2); Eosinophils Absolute Auto 0.2 X10*3/uL (0.0-0.4); Hematocrit 36.5 % (42.0-52.0); Imm Gran Abs Auto 0.02 X10*3/uL (0.00-0.03); Imm Gran Pct Auto 0.2 % (0.0-0.4); Lymphocytes Percent Auto 23.5 % (20-40); Mean Corpuscular HGB Conc 32.9 g/dl (31.0-36.0); Mean Corpuscular Hemoglobin 29.7 pg (27.0-33.0); Mean Corpuscular Volume 90.3 fL (80.0-98.0); Mean Platelet Volume 9.1 fL (9.4-12.4); Monocytes Absolute Auto 0.5 X10*3/uL (0.1-1.2); Neutrophils Absolute Auto 5.7 x10*3/uL (2.0-8.3); Neutrophils Percent Auto 67.7 % (45-73); Platelet Count 257 X10*3/uL (160-400); Red Blood Count 4.04 X10*6/uL (4.60-5.80); White Blood Count 8.4 X10*3/uL (4.8-10.8)
[2024-01-12 13:14] LABS: INTERNATIONAL NORM RATIO 0.9 (0.9-1.1); Prothrombin Time 11.3 SEC (11.1-13.3)
[2024-01-12 13:17] LABS: Partial Thromboplastin Time 33.5 SEC (26.0-36.8)
[2024-01-12 13:24] LABS: Alanine Aminotransferase 13 U/L (0-40); Albumin Level 3.9 g/dL (3.5-5.0); Alkaline Phosphatase 72 U/L (39-117); Anion Gap 12 (12-20); Aspartate Amino Transferase 21 U/L (5-37); Bilirubin Total 0.4 mg/dL (0.0-1.0); Blood Urea Nitrogen 13 mg/dL (9-16); C Reactive Protein 3.39 mg/dL (< or = 0.50); Calcium 10.3 mg/dL (8.4-10.2); Carbon Dioxide 31 mmol/L (22-29); Chloride 105 mmol/L (96-108); Creatinine Clr Calc Pharmacy 128.4; Estimated Glomerular Filt Rate > 60; Glucose Random 97 mg/dL (60-115); Potassium 4.6 mmol/L (3.3-5.1); Sodium 143 mmol/L (135-145); Total Protein 7.3 g/dL (6.5-8.0); Uric Acid 8.9 mg/dL (3.4-7.0)
[2024-01-12 13:44] LABS: Erythrocyte Sedimentation Rate 59 MM/HR (0-15)
[2024-01-12] MEDS: Ketorolac Tromethamine 30 MG/ML VIAL IM (14:57)
[2024-01-12] MEDS: predniSONE 10 MG TABLET 50 MG PO (14:58)
[2024-01-12 16:41] VITALS: BP 115/71; PULSE 71; RESP 18; TEMP 36.4; O2SAT 100
== END 2024-01-12 16:41 | disposition home or self-care (01) ==
PROVIDERS: Physician Assistant; Emergency Provider Emergency Medicine; PCP Internal Medicine
DX: M10.421 Other secondary gout, right elbow (principal); R60.0 Localized edema; M79.671 Pain in right foot; I10 Essential (primary) hypertension; Z79.899 Other long term (current) drug therapy
CPT/HCPCS: 36415; 73620; 80053; 84550; 85025; 85610; 85652; 85730; 86140; 93971; 96372; 99283; 99284; J1885

== ENCOUNTER 2024-04-13 08:53 | Outpatient (REF) | payer OTHER, SELFPAY ==
--- NOTE | ~2024-04-13 | XR_ITS ---
EXAMINATION: XR KNEE, RIGHT CLINICAL INFORMATION: Pain COMPARISON: Right knee radiograph from 03/19/2022 TECHNIQUE: Four views of the right knee. FINDINGS: No acute visible fracture or dislocation. Multicompartment arthritic changes. Narrowing of the lateral femorotibial compartment. Enthesopathy at the Achilles tendon insertion site patellar tendon origination site. Joint space alignment otherwise maintained. Soft tissues are unremarkable. XR/XR knee RT 4V IMPRESSION: 1. No acute visible fracture or dislocation. 2. Multicompartment arthritic changes. Electronically signed by: Zhao Moreno MD 04/13/2024 10:21 AM Y[facility]
--- NOTE | ~2024-04-13 | US_ITS ---
EXAMINATION: US TRIPLEX LOWER EXTREMITY, RIGHT CLINICAL INFORMATION: Right leg edema. COMPARISON: None available. TECHNIQUE: Color-flow triplex imaging with spectral analysis and compression Doppler were performed on the right lower extremity. FINDINGS: Respiratory variation, normal compression and augmented flow are noted throughout the right lower extremity. The visualized common femoral vein, superficial femoral vein, profunda femoral vein, popliteal vein and midcalf peroneal and posterior tibial venous segments show no evidence of deep venous thrombosis. There is no Dugan's cyst. Incidental note on images of the right groin region of lymph nodes with echogenic ramya measuring 3.8 x 0.7 x 1.5 cm and 2.5 x 0.6 x 1.9 cm. US/US venous duplex LE RT IMPRESSION: 1. No evidence of deep venous thrombosis involving the right lower extremity. 2. Incidental note on images of the right groin region of lymph nodes with echogenic ramya measuring 3.8 x 0.7 x 1.5 cm and 2.5 x 0.6 x 1.9 cm. Correlation with clinical exam recommended to determine further management including possible followup imaging in 3 months. This study was presented today, 04/13/2024, for interpretation. Stat results provided at this time as requested by referring provider. Electronically signed by: Maria T Key MD 04/13/2024 12:12 PM [facility] CARLTON
== END 2024-04-13 08:54 | disposition home or self-care (01) ==
LOC: HO.HMGCX 08:53
PROVIDERS: PCP Internal Medicine; Visit Provider Physician Assistant
DX: R60.0 Localized edema (principal); M25.561 Pain in right knee; S83.91XA Sprain of unspecified site of right knee, initial encounter
CPT/HCPCS: 73564; 93971; 99212

== ENCOUNTER 2024-04-13 08:53 | Outpatient (AMB) | payer OTHER, SELFPAY ==
[2024-04-13 09:21] VITALS: BP 120/72; PULSE 80; TEMP 36.7; O2SAT 97
--- NOTE | 2024-04-13 09:21 | MHC.OFFWIV ---
Intake Vital Signs 04/13/24 09:21 Height 5 ft 9 in Weight 23 lb BMI 3.4 BP 120/72 Blood Pressure Location Lt brachial Position Sitting Pulse 80 Pulse Source Pulse Oximeter Temp 98.0 F Temp Source Oral Pulse Oximetry (%) 97 Intake Visit Reasons: EP RT knee Intake Note: pt is here for right knee pain, fell in tub a few weeks ago. was seen at [facility] did imaging and stated it was OK. but pain has not resolved patient states theres swelling and stiff and not getting better Patient Tobacco Use Status: Never used Tobacco Allergies latex [LATEX] Allergy (Intermediate, Verified 04/13/24 09:23) RASH acetaminophen [Tylenol] Allergy (Unknown, Verified 04/13/24 09:23) stomach upset amoxicillin Allergy (Unknown, Verified 04/13/24 09:23) nausea and vomiting Do you need a note to return to daycare/school/sports/work: Yes HPI HPI Comments History of Present Illness Details He had a fall in the bathtub a few weeks ago [facility] did xrays on elbow and knee which were fine He states elbow fine but knee still painful + stiffness R knee since He has tried ice, rest and Ibuprofen Pain level 9/10, worse with walking Decreased ROM of R knee Not seen by anyone since [facility] No chest pain or SOB No hx of surgeries to the follow extremities Pain at night he has pain around R knee and into R rodriguez area, worse at night PFSH Medical History (Updated 04/13/24 @ 10:35 by Anna Diaz PA-C) Obesity (BMI 30-39.9) Type 2 diabetes mellitus with hyperglycemia Hypertension Essential tremor Hypercholesterolemia Anxiety and depression Contracture, left hand Gout Surgical History (Updated 07/29/22 @ 15:05 by Randa Shanks MD) History of tonsillectomy History of cholecystectomy History of sleeve gastrectomy Family History Father No problems noted. Mother No problems noted. 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 Current occupational exposures/hazards: No Cognitive needs: No Hearing needs: No Vision needs: No Review of Systems Const Denies chills, Denies fatigue and Denies fever(s) Card Denies chest pain and Denies dyspnea Resp Denies chest congestion, Denies cough and Denies dyspnea Musc Reports abnormal gait, Reports arthralgias, Reports joint swelling, Reports numbness, Reports stiffness and Denies tingling Skin/Breast Denies erythema, Denies rash and Denies wounds Neuro Reports abnormal gait, Reports numbness and Denies tingling Endo Denies fatigue Physical Exam Vital Signs: Last Vital Signs Temp 98.0 F 04/13/24 09:21 Pulse 80 04/13/24 09:21 BP 120/72 04/13/24 09:21 Pulse Ox 97 04/13/24 09:21 BMI result Body Mass Index 3.4 General: Non-toxic, NAD. Speaking full sentences. Skin: Warm dry throughout + edema noted circumferential to R knee without erythema, warmth to joint or ecchymosis RLE edema extending from R knee to anterior R ankle. 2+ pitting edema noted throughout rodriguez. No wounds or ecchymosis No pallor, erythema or petechiae to RLE Eye: EOMI Cardiac: DP pulse intact RLE MSK: + decreased ROM R knee with flexion and extension. + diffuse tenderness to palpation of R knee. No R ankle, proximal tib/fib or foot tenderness to palpation. Neurology: A/O. No aphasia or facial droop. Psych: Good mood and affect Assessment & Plan Assessment & Plan (1) Leg edema, right: Code(s): R60.0 - Localized edema Plan: Pt seen and evaluated I went next door and was able to book pt for 11 am US RLE for r/o DVT It is 9:38 and he is going for Xray R knee currently I viewed xray R knee without fx need. Will give ATILIO and crutches. 12:00 I viewed tech preliminary report as negative. Will wait for official read and call pt with ortho referral 12:32 pm offical read was negative for DVT. I put in ortho referral. I also sent letter to Dr Shanks to follow up in 3 month due to swollen LN noted in R groin. i called pt to disuss results but he did not answer; a message was left to call back office. All of this information relayed to MA to ensure pt sees follow up ortho and PCP (2) Knee pain: Code(s): M25.569 - Pain in unspecified knee Qualifiers: Chronicity: acute Laterality: right Qualified Code(s): M25.561 - Pain in right knee Plan: If DVT study negative, pt will need to have MRI Ortho referral will be given He has no palor or pulselessness RLE. Discussed ER warning s/s and when he needs to be seen sultana. Pt gave verbal understanding and has no additional questions at this time. (3) Right knee sprain: Code(s): S83.91XA - Sprain of unspecified site of right knee, initial encounter Qualifiers: Encounter type: initial encounter Involved ligament of knee: unspecified ligament Qualified Code(s): S83.91XA - Sprain of unspecified site of right knee, initial encounter Plan: see rachael. Orders: Orders US venous duplex LE RT Today R60.0 - Localized edema Coding Level of Care Code Est Pt Level 4 (77064) Diagnoses Leg edema, right R60.0 Acute pain of right knee M25.561 Chronicity: acute Laterality: right Sprain of right knee, unspecified ligament, initial encounter S83.91XA Encounter type: initial encounter Involved ligament of knee: unspecified ligament
== END 2024-04-13 10:09 | disposition home or self-care (01) ==
PROVIDERS: PCP Internal Medicine; Visit Provider Physician Assistant
DX: R60.0 Localized edema (principal); M25.561 Pain in right knee; S83.91XA Sprain of unspecified site of right knee, initial encounter

== ENCOUNTER 2024-04-19 08:39 | Outpatient (AMB) | payer OTHER, SELFPAY ==
[2024-04-19 08:42] VITALS: BP 118/72; PULSE 67; O2SAT 99; BMI 37.5
--- NOTE | 2024-04-19 08:42 | MHC.PC.OV ---
Vital Signs 04/19/24 08:42 Height 5 ft 9 in Weight 254 lb BMI 37.5 BP 118/72 Blood Pressure Location Lt brachial Position Sitting Pulse 67 Pulse Source Pulse Oximeter Pulse Oximetry (%) 99 Oxygen Delivery Method Room Air Intake Visit Reasons: rt knee stiff, swollen lymph nodes Employment Educational Coord Required: No Allergies latex [LATEX] Allergy (Intermediate, Verified 04/19/24 08:45) RASH acetaminophen [Tylenol] Allergy (Unknown, Verified 04/19/24 08:45) stomach upset amoxicillin Allergy (Unknown, Verified 04/19/24 08:45) nausea and vomiting Medication List - Last Reconciled 04/19/24 by Venecia Latif PA-C allopurinol 600 mg (2 x 300 mg) PO DAILY cholecalciferol (vitamin D3) 25 mcg PO DAILY compress.stocking,knee,reg,lrg As directed cyclobenzaprine 5 mg PO TID PRN ibuprofen 800 mg PO Q8H PRN metformin 500 mg PO DAILY multivitamin 1 tab PO DAILY pyridoxine (vitamin B6) 50 mg PO DAILY Tobacco use date assessed: 11/12/23 Dental Screening Dental Screen Date: 11/12/23 HPI rt knee stiff, swollen lymph nodes HPI Details 47-year-old obese male with diabetes mellitus hypertension hypercholesterolemia patient has a history of sleeve gastrectomy patient also has generalized anxiety disorder last seen in November [address] Shanks coming in for acute problem. In review of the notes, patient was seen by walk-in clinic 04/13/2024 for right knee pain after a fall imaging was negative ultrasound was ordered to rule out DVT which was negative and referral for orthopedics was placed. Patient states he had a fall 3 weeks ago and since the fall has been having right sided knee swelling. He denies any dizziness prior to the fall or any head strike. He has been having swelling in the left knee and left lower leg. The pain is worse primarily at night and feels like a throbbing pain. He does have pain while walking on the leg as well and primarily stands for work. He has been using the crutches intermittently throughout the day. He also mentions a couple of days ago he had a traumatic left thumb pain and can not identify any triggers or injuries. COUNT INCLUDES [facility] Medical History (Updated 04/19/24 @ 09:04 by Venecia Latif PA-C) Obesity (BMI 30-39.9) Type 2 diabetes mellitus with hyperglycemia Hypertension Essential tremor Hypercholesterolemia Anxiety and depression Contracture, left hand Gout Surgical History (Updated 07/29/22 @ 15:05 by Randa Shanks MD) History of tonsillectomy History of cholecystectomy History of sleeve gastrectomy Family History Father No problems noted. Mother No problems noted. 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 occupational status: employed Current occupation: [employer] Current occupational exposures/hazards: No Cognitive needs: No Hearing needs: No Vision needs: No Questionnaire Thrive Questionnaire Date Thrive assessed: 11/12/23 AUDIT C Alcohol Use Questionnaire (AUDIT-C) 1. How often do you have a drink containing alcohol?: 2-3 times a week 2. How many drinks containing alcohol do you have on a typical day when you are drinking?: 1 or 2 3. How often do you have six or more drinks on one occasion?: Never Total Score: 3 Score Reviewed/Action Taken: Yes HIMA-7 AMB Questionnaire HIMA-7 Date HIMA - 7 assessed: 11/12/23 Source: Developed by Drs. Jason Capellan, Luisana Bernstein, Shahid Dorman and colleagues, with an educational hemalatha from [employer]. Review of Systems Const Denies body aches, Denies chills and Denies fever(s) Eyes Reports no additional complaints ENT Reports no additional complaints Card Denies chest pain, Reports leg edema, Denies lightheadedness and Denies dyspnea Resp Denies dyspnea GI Reports no additional complaints Reports no additional complaints Musc Reports as per HPI Skin/Breast Reports system reviewed and no additional complaints, except as documented Neuro Reports no additional complaints Psych Reports no additional complaints Physical exam (Primary Care) Vital Signs: Oxygen Delivery Method Room Air 04/19/24 08:42 BMI result Body Mass Index 37.5 Tobacco/Smoking Status: Tobacco use Status Tobacco use date assessed 11/12/23 04/19/24 08:43 Patient Tobacco Use Status Never used Tobacco 04/19/24 08:43 e-Cigarette/Vaping Use Never Used 04/19/24 08:43 Thrive Assessment: Date of Thrive Assessment Date Thrive assessed 11/12/23 04/19/24 08:43 Const General: cooperative, healthy appearing, comfortable and no acute distress Orientation/consciousness: patient oriented x3 HENMT Head: Yes normocephalic Ears: hearing grossly normal bilaterally General nose exam: Normal external nose present Eyes General: appearance normal, both eyes and all related structures Conjunctivae: conjunctivae normal Neck Neck: Yes full ROM and Yes no lymphadenopathy Resp Effort & Inspection: normal respiratory effort Auscultation: clear to auscultation bilaterally, no crackles, no rales, no rhonchi and no wheezes Cardio Rate: regular rate Rhythm: regular rhythm Skin General skin exam: no rashes or lesions noted Neuro General: patient oriented x3 Gait exam (Neuro): Normal gait present Extrem Other: Right knee swelling without redness or warmth. Tenderness to palpation circumferentially around the right knee. Tenderness to palpation of left 1st metacarpal with overlying swelling without warmth or erythema. Negative Pascual test and no snuffbox tenderness. General: Yes normal to inspection, Yes full ROM and No edema Psych Affect: normal affect Attitude: cooperative Insight: Good insight present (Psych) Judgement: Good judgement present (Psych) Coding Level of Care Code Est Pt Level 4 (30505) Diagnoses Pain of left thumb M79.645 Sprain of right knee, unspecified ligament, initial encounter S83.91XA Encounter type: initial encounter Involved ligament of knee: unspecified ligament Knee effusion M25.469 Assessment & Plan Assessment & Plan (1) Pain of left thumb: Code(s): M79.645 - Pain in left finger(s) Category: Medical Plan: Patient has atraumatic left thumb pain and swelling without warmth or redness, can not identify any inciting events. Exam not consistent with infection and we will order for x-ray for further evaluation (2) Right knee sprain: Code(s): S83.91XA - Sprain of unspecified site of right knee, initial encounter Category: Medical Qualifiers: Encounter type: initial encounter Involved ligament of knee: unspecified ligament Qualified Code(s): S83.91XA - Sprain of unspecified site of right knee, initial encounter Plan: Patient was diagnosed with right knee sprain at urgent care. DVT ruled out and x-ray negative for acute fracture or dislocation. Advised patient to continue using the crutches as needed and weightbear as tolerated. Advised to elevate the legs as there is some edema in the right lower extremity. Exam not consistent with infection or septic joint. Advised to follow up with Orthopedics. Prescription sent for muscle relaxer to use for nighttime pain and ibuprofen for daily pain. (3) Knee effusion: Code(s): M25.469 - Effusion, unspecified knee Category: Medical Plan: Advised patient to elevate the legs and weightbear as tolerated. Follow up with Orthopedics. Plan This note was constructed using voice recognition software. While every effort has been made to ensure accuracy and template reproduction technician, still areas may have been included sometimes these areas may affect the content or meeting of the given symptoms. Total time spent caring for the patient today was 20 minutes. This includes time spent before the visit reviewing the chart, time spent during the visit, and time spent after the visit and documentation. Orders: Orders XR hand LT min 3V Today M79.645 - Pain in left finger(s) Medications: New ibuprofen 800 mg PO Q8H PRN 30 tabs 0RF pain Refilled cyclobenzaprine 5 mg PO TID PRN 30 tabs 0RF muscle spasm N39.0 - Urinary tract infection, site not specified Discontinued ibuprofen Discontinued Reason: Patient no longer taking 600 mg PO Q8H PRN 30 tabs 0RF pain
== END 2024-04-19 09:12 | disposition home or self-care (01) ==
PROVIDERS: PCP Internal Medicine
DX: M79.645 Pain in left finger(s) (principal); S83.91XA Sprain of unspecified site of right knee, initial encounter; M25.469 Effusion, unspecified knee

== ENCOUNTER → 2024-04-19 08:39 | Outpatient (BNVA) | payer OTHER, SELFPAY | PROVIDERS: PCP Internal Medicine | DX: M79.645 Pain in left finger(s) (principal); S83.91XA Sprain of unspecified site of right knee, initial encounter; M25.461 Effusion, right knee | CPT/HCPCS: 99212 ==

== ENCOUNTER 2024-05-25 11:20 | Outpatient (REF) | payer OTHER, SELFPAY | END 2024-05-25 11:21 | disposition home or self-care (01) | LOC: HO.HOSX 11:20 | PROVIDERS: Visit Provider Physician Assistant | DX: Z13.89 Encounter for screening for other disorder (principal) ==

== ENCOUNTER 2024-09-17 16:28 | Emergency (ER) | payer OTHER, SELFPAY ==
--- NOTE | ~2024-09-17 | US_ITS ---
CLINICAL HISTORY: Left knee swelling, proximal calf pain Venous duplex ultrasound left lower extremity Comparison: None Findings: The visualized deep veins are fully compressible with normal Doppler color flow and spectral tracings. Popliteal fossa cyst measuring 3.7 x 1.0 x 1.7 cm. IMPRESSION: 1. Negative for left lower extremity deep vein thrombosis. 2. Popliteal fossa cyst. This document has been electronically signed by: Stephanie Francisco MD on 09/17/2024 19:52:06
--- NOTE | ~2024-09-17 | XR_ITS ---
CLINICAL HISTORY: pain, swelling 4 view left knee Comparison: CR/SR - XR KNEE LT 3V - 12/20/21 13:56 EDT Findings: No fractures or dislocations. Patellar enthesopathy. Small joint effusion. No radiopaque foreign body. IMPRESSION: 1. No acute osseous injury. 2. Small joint effusion. This document has been electronically signed by: Stephanie Francisco MD on 09/17/2024 18:42:46
[2024-09-17 16:32] VITALS: BP 113/66; PULSE 75; RESP 20; TEMP 37; O2SAT 100; BMI 37.4
--- NOTE | 2024-09-17 16:33 | ED_ITS ---
HPI - Extremity Problem General Chief complaint: Extremity Injury, Lower Stated complaint: left knee keeps locking Time Seen by Provider: 09/17/24 18:29 Source: patient Mode of arrival: ambulatory Limitations: no limitations History of Present Illness ED Provider: Dr. Chris Apple HPI Narrative: 48-year-old male with past medical history of gout, arthritis, type 2 diabetes, hypertension, hypercholesterolemia presents to the emergency department with 2 days of left knee pain. Patient explains he woke up in the morning and noticed swelling in the back of the knee and proximal calf and had a difficult time walking to the bathroom. He states that he went to work that day and took Motrin without effect. When he got home from [facility] noticed an increase the swelling and had increased difficulty walking. 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 He states he has been taking his medication allopurinol and colchicine and drinks about 2 beers awake. He denied fever, chills, nausea, vomiting, chest pain, shortness of breath, cough. And denies any recent travel. Related Data Home Medications ?Medication ?Instructions ?Recorded ?Confirmed multivitamin 1 tab PO DAILY 03/27/21 04/19/24 pyridoxine (vitamin B6) 50 mg 50 mg PO DAILY 11/27/21 04/19/24 tablet Previous Rx's ?Medication ?Instructions ?Recorded compress.stocking,knee,reg,lrg #2 ea 10/11/20 metformin 500 mg tablet 500 mg PO DAILY #90 tabs 03/20/21 cholecalciferol (vitamin D3) 25 25 mcg PO DAILY #90 tabs 04/11/22 mcg (1,000 unit) tablet allopurinol 300 mg tablet 600 mg (2 x 300 mg) PO DAILY #60 10/14/22 tabs cyclobenzaprine 5 mg tablet 5 mg PO TID PRN muscle spasm #30 04/19/24 tabs ibuprofen 800 mg tablet 800 mg PO Q8H PRN pain #30 tabs 04/19/24 oxycodone 5 mg tablet 5 mg PO Q6H PRN pain #10 tabs 09/17/24 prednisone 20 mg tablet 40 mg (2 x 20 mg) PO DAILY 5 days 09/17/24 #10 tabs Allergies Allergy/AdvReac Type Severity Reaction Status Date / Time latex [LATEX] Allergy Intermediate RASH Verified 09/17/24 16:37 acetaminophen [Tylenol] Allergy Unknown stomach Verified 09/17/24 16:37 upset amoxicillin Allergy Unknown nausea and Verified 09/17/24 16:37 vomiting Review of Systems Review of Systems: Yes all other systems are reviewed and are negative [facility] Past Medical History Attestation statement: The following information was validated with the patient. [facility] Narrative: Social history: Denies tobacco, drug use. Does report that he drinks 2 beers per week. Medical History (Updated 09/17/24 @ 20:58 by Chris Apple MD) Obesity (BMI 30-39.9) Type 2 diabetes mellitus with hyperglycemia Hypertension Essential tremor Hypercholesterolemia Anxiety and depression Contracture, left hand Gout Surgical History (Updated 07/29/22 @ 15:05 by Randa Shanks MD) History of tonsillectomy History of cholecystectomy History of sleeve gastrectomy Family History Family History Father No problems noted. Mother No problems noted. Social History Social History Household Members: None Housing: Apartment Alcohol intake: current Alcohol intake frequency: a few times a month Patient Tobacco Use Status: Never used Tobacco Smoked in Last 30 Days: No e-Cigarette/Vaping Use: Never Used Second Hand Smoke Exposure: No Use of substances other than those prescribed or required for medical reasons: No Advance Directives: No Advance Directives Information Provided: Yes service: No Current occupational status: employed Current occupation: [employer] Current occupational exposures/hazards: No Cognitive needs: No Hearing needs: No Vision needs: No Physical Exam Vital Signs: Vital Signs: Last Vital Signs Temp 98.6 F 09/17/24 18:35 Pulse 77 09/17/24 18:35 Resp 18 09/17/24 18:35 BP 107/67 09/17/24 18:35 Pulse Ox 99 09/17/24 18:35 O2 Del Method Room Air 09/17/24 18:35 BMI result Body Mass Index 37.4 Initial vital signs: Unremarkable Exam Lower extremities: Left lower extremity: mild swelling of the posterior fossa with no joint effusion, no ecchymosis, or erythema. No increased skin warmth. Limited ability to flex the knee due to increased pain. Extremity was neurovascularly intact. Right lower extremity: Normal exam Course Course Course Narrative: This is an RME performed by Alfie Verde CNP: Additional HPI, ROS, PE not included below will be deferred to primary provider. Patient is a 48-year-old male who presents emergency department for evaluation of left knee pain, posterior swelling, feels as though the knee keeps locking. Denies any associated calf pain redness or swelling. Denies history of VTE. 2+ DP/PT pulse bilaterally. Plan: XR Medications Administered Discontinued Medications Generic Name Dose Route Start Last Admin Trade Name Freq PRN Reason Stop Dose Admin Oxycodone HCl 10 mg 09/17/24 18:51 09/17/24 19:09 Oxycodone Hcl Immed Release 5 Mg Tablet PO 09/17/24 18:52 10 mg ONCE ONE Administration Prednisone 40 mg 09/17/24 18:51 09/17/24 19:09 Prednisone 20 Mg Tablet PO 09/17/24 18:52 40 mg ONCE ONE Administration Medical Decision Making Medical Decision Making MDM Narrative: 48-year-old male with past medical history of gout, arthritis, type 2 diabetes, hypertension, hypercholesterolemia presents to the emergency department with 2 days of left knee pain. Patient explains he woke up in the morning and noticed swelling in the back of the knee and proximal calf and had a difficult time walking to the bathroom. He states that he went to work that day and took Motrin without effect. When he got home from [facility] noticed an increase the swelling and had increased difficulty walking. 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 He states he has been taking his medication allopurinol and colchicine and drinks about 2 beers awake. He denied fever, chills, nausea, vomiting, chest pain, shortness of breath, cough. And denies any recent travel. Differential diagnosis: ?Includes but is not limited to DVT, gout flare, arthritis, Dugan's cyst Course: 19:01 Will obtain venous ultrasound of the lower left extremity. We will give 10 mg oxycodone for pain management. We will get 40 mg of prednisone for swelling and pain. 20:49 Review of the ultrasound showed no DVT. Revealed a Dugan's cyst in the popliteal fossa. We reviewed this information with the patient, and instructed him on how to manage the pain at home including taking his allopurinol and colchicine. We also instructed the patient to ice and elevate the leg and watch signs and symptoms for swelling, temperature changes, skin color changes as return precautions. The patient will be prescribed 40 mg of prednisone and 5 days of oxycodone for pain management. Admission/Observation Consideration of admission/observation: Escalation of care including admission/observation considered (Yes) Independent Interpretation I performed an independent interpretation of an: Plain X-Ray Interpretation: My interpretation of left knee x-ray shows no acute process Radiology Impression Discussion of test interpretation with radiology: I have reviewed the radiologist's reading. Radiologist Impression: 4 view left knee Comparison: CR/SR - XR KNEE LT 3V - 12/20/21 13:56 EDT Findings: No fractures or dislocations. Patellar enthesopathy. Small joint effusion. No radiopaque foreign body. IMPRESSION: 1. No acute osseous injury. 2. Small joint effusion. This document has been electronically signed by: Stephanie Francisco MD on 09/17/2024 18:42:46 Venous duplex ultrasound left lower extremity Comparison: None Findings: The visualized deep veins are fully compressible with normal Doppler color flow and spectral tracings. Popliteal fossa cyst measuring 3.7 x 1.0 x 1.7 cm. IMPRESSION: 1. Negative for left lower extremity deep vein thrombosis. 2. Popliteal fossa cyst. This document has been electronically signed by: Stephanie Francisco MD on 09/17/2024 19:52:06 External Record Review External record reviewed: Office record (05/24/2022) Prescription Management I considered prescription management with: Pain Medication (Oxycodone) and Other (Anti-inflammatory steroids: Prednisone) Chronic Conditions Patient?s care impacted by: Diabetes, Hypertension and Other (Arthritis, hyperlipidemia, gout) Discharge Plan Discharge Clinical Impression: Dugan's cyst of knee, Gout of knee Patient Disposition: Home, Self-Care Instructions: Gout (ED), Bakers Cyst (ED) Additional Instructions: I you were seen today for Dugan's cyst and gout of the left knee. Take prednisone 20 mg pills, 2 pills once a day for 5 days. While you ?are taking prednisone, do not take any NSAIDs (Motrin, Advil, ibuprofen, Aleve, naproxen). Take oxycodone 5 mg pills, 1 pill every 6 hours as needed for pain. Do not drive or work while taking this medication since they can cause sleepiness. Oxycodone is a narcotic medication that can be addicting. If you are concerned about addiction you can ask the pharmacist for less pills or do not get this prescription filled. You can ice the area for 15 minutes every 2-3 hours for the next 5 days. Please see the return to work note. Follow-up with your doctor in 5 days. Please return to the emergency department if your symptoms get worse or if you develop any symptoms that are concerning to you. Prescriptions: New prednisone 20 mg tablet 40 mg PO DAILY 5 Days Qty: 10 0RF oxycodone 5 mg tablet 5 mg PO Q6H PRN (Reason: pain) Qty: 10 0RF Rx Instructions: Patient may request partial refill; Partial Fill upon patient request. No Action cholecalciferol (vitamin D3) 25 mcg (1,000 unit) tablet 25 mcg PO DAILY Qty: 90 0RF allopurinol 300 mg tablet 600 mg PO DAILY Qty: 60 5RF (DME) compress.stocking,knee,reg,lrg Misc See Rx Instructions .ROUTE .MEDSUPPLY Qty: 2 0RF Rx Instructions: As directed metformin 500 mg tablet 500 mg PO DAILY Qty: 90 0RF pyridoxine (vitamin B6) 50 mg tablet 50 mg PO DAILY multivitamin Tablet 1 tab PO DAILY cyclobenzaprine 5 mg tablet 5 mg PO TID PRN (Reason: muscle spasm) Qty: 30 0RF ibuprofen 800 mg tablet 800 mg PO Q8H PRN (Reason: pain) Qty: 30 0RF Print Language: Tamazight
[2024-09-17 18:35] VITALS: BP 107/67; PULSE 77; RESP 18; TEMP 37; O2SAT 99
[2024-09-17] MEDS: predniSONE 20 MG TABLET 40 MG PO (19:09)
[2024-09-17] MEDS: oxyCODONE HCl Immed Release 5 MG TABLET 10 MG PO (19:09)
[2024-09-17 21:09] VITALS: BP 116/76; PULSE 76; RESP 16; TEMP 36.3; O2SAT 100
[2024-09-17 21:18] VITALS: BP 116/76; PULSE 76; RESP 16; TEMP 36.3; O2SAT 100
== END 2024-09-17 21:28 | disposition home or self-care (01) ==
PROVIDERS: Emergency Provider Emergency Medicine Emergency Medical Services; PCP Internal Medicine
DX: M71.22 Synovial cyst of popliteal space [Baker], left knee (principal); R60.0 Localized edema; M10.062 Idiopathic gout, left knee; M25.562 Pain in left knee; Z79.899 Other long term (current) drug therapy
CPT/HCPCS: 73564; 93971; 99284

== ENCOUNTER → 2024-09-17 18:00 | Outpatient (BNV) | payer OTHER, SELFPAY | PROVIDERS: Emergency Provider Emergency Medicine Emergency Medical Services; PCP Internal Medicine; Visit Provider Radiology Diagnostic Radiology | DX: M71.22 Synovial cyst of popliteal space [Baker], left knee (principal); M25.462 Effusion, left knee | CPT/HCPCS: 73564; 93971 ==

== ENCOUNTER 2024-10-01 13:50 | Outpatient (REF) | payer OTHER, SELFPAY ==
--- NOTE | ~2024-10-01 | XR_ITS ---
EXAMINATION: XR KNEE, LEFT CLINICAL INFORMATION: M25.561 - Pain in right knee COMPARISON: 09/17/2024. TECHNIQUE: Four views of the left knee. FINDINGS: No fracture, dislocation, or suspicious bone lesion. Normal bone mineralization. Normal alignment. Mild tricompartmental joint space narrowing with minimal marginal osteophyte formation. Mild spurring of the tibial spines. There is a moderate-sized superior and smaller inferior patellar enthesophyte present. There is a small suprapatellar joint effusion suspected. Mild prepatellar soft tissue swelling. XR/XR knee LT 2V IMPRESSION: 1. No acute bony findings left knee. Mild prepatellar soft tissue swelling. 2. Mild tricompartmental osteoarthritis. 3. Patellar enthesophytes. 4. Small joint effusion suspected. Electronically signed by: Anthony Dunaway MD 10/05/2024 10:44 AM EDT
--- NOTE | ~2024-10-01 | XR_ITS ---
EXAMINATION: XR HIP, LEFT CLINICAL INFORMATION: M25.552 - Pain in left hip COMPARISON: None available. TECHNIQUE: AP pelvis, and 2 views of the left hip. FINDINGS: No fracture, dislocation, or suspicious bone lesion. Normal bone mineralization. Normal alignment. Mild bilateral hip joint osteoarthrosis with small subcapital and superolateral acetabular osteophytes. No evidence of AVN. Normal femoral head contours. There is a subtle osseous bump along the lateral femoral head neck junction, finding which can be associated with cam-type INDIO. There is minimal enthesopathic spurring of the lesser trochanter. The sacrum and SI joints appear normal. Soft tissues appear normal. XR/XR hip LT w PEL1V IMPRESSION: 1. No acute bony abnormalities of the left hip. Mild degenerative arthritis. Additional findings as above. Electronically signed by: Anthony Dunaway MD 10/05/2024 10:47 AM EDT
[2024-10-01 14:56] LABS: MANUAL DIFF FLAG NO
--- OUTSIDE RECORDS SUMMARY | 2024-10-01 15:25 | XMS_ITS | Clinical Summary ---
Author Organization [facility] Address [address] [place] [phone] Phone Care Team Providers Care Mold Burner Name Role Phone Unavailable Primary Care Provider [...]
[2024-10-01 15:31] LABS: Basophils Absolute Auto 0.1 X10*3/uL (0.0-0.2); Basophils Percent Auto 0.6 % (0-2); Eosinophils Absolute Auto 0.1 X10*3/uL (0.0-0.4); Eosinophils Percent Auto 1.4 % (0-4); Hematocrit 35.5 % (42.0-52.0); Hemoglobin 11.1 g/dl (14.0-18.0); Imm Gran Abs Auto 0.02 X10*3/uL (0.00-0.03); Imm Gran Pct Auto 0.2 % (0.0-0.4); Immature Retic Fraction 14.7 % (2.3-13.4); Lymphocytes Absolute Auto 1.8 X10*3/uL (1.2-4.9); Lymphocytes Percent Auto 21.2 % (20-40); Mean Corpuscular HGB Conc 31.3 g/dl (31.0-36.0); Mean Corpuscular Hemoglobin 27.8 pg (27.0-33.0); Mean Corpuscular Volume 88.8 fL (80.0-98.0); Mean Platelet Volume 9.5 fL (9.4-12.4); Monocytes Absolute Auto 0.5 X10*3/uL (0.1-1.2); Monocytes Percent Auto 5.5 % (2-11); Neutrophils Percent Auto 71.1 % (45-73); Platelet Count 290 X10*3/uL (160-400); Red Cell Distribution Width 15.3 % (11.0-16.0); Retic HGB Equivalent 31.7 pg (30.0-35.0); Reticulocyte Percent 1.4 % (0.5-1.8); Reticulocytes Absolute 0.056 X10*6/uL (0.026-0.095); White Blood Count 8.5 X10*3/uL (4.8-10.8)
[2024-10-01 15:39] LABS: Estimated Average Glucose 128 mg/dL; Hemoglobin A1C 127.3168 umol/L; Hemoglobin A1c % 6.1 % (<6.0); Total Hemoglobin (HGBA1C) 2940.2949 umol/L
[2024-10-01 15:52] LABS: Anion Gap 11 (12-20)
[2024-10-01 16:01] LABS: Alanine Aminotransferase 10 U/L (0-40); Albumin Level 3.5 g/dL (3.5-5.0); Aspartate Amino Transferase 19 U/L (5-37); Bilirubin Total 0.2 mg/dL (0.0-1.0); Blood Urea Nitrogen 9 mg/dL (9-16); Calcium 8.8 mg/dL (8.4-10.2); Carbon Dioxide 30 mmol/L (22-29); Chloride 107 mmol/L (96-108); Cholesterol 165 mg/dL (<200); Estimated Glomerular Filt Rate > 60; Glucose Random 81 mg/dL (60-115); HDL Cholesterol 60 mg/dL (>40); Iron 47 mcg/dL (45-160); LDL Cholesterol Calculated 90 mg/dL (<100); Percent Iron Saturation 21 % (15-50); Potassium 4.1 mmol/L (3.3-5.1); Sodium 144 mmol/L (135-145); Total Iron Binding Capacity 226 mcg/dL (228-428); Total Protein 6.6 g/dL (6.5-8.0); Triglycerides 75 mg/dL (<150); Unsaturated Iron Binding 179 ug/dL; Uric Acid 8.6 mg/dL (3.4-7.0)
[2024-10-01 16:06] LABS: Creatinine Urine 86.94 mg/dL
[2024-10-01 16:17] LABS: Alkaline Phosphatase 71 U/L (39-117)
[2024-10-01 16:21] LABS: Ferritin 162 ng/mL (20-250); Free T4 (Free Thyroxine) 0.95 ng/dL (0.71-1.85); Thyroid Stimulating Hormone 0.63 uIU/mL (0.32-4.0)
[2024-10-01 16:31] LABS: Folate 7.7 ng/mL (> or = 4.0); Vitamin B12 333 pg/mL (200-900)
== END 2024-10-01 13:51 | disposition home or self-care (01) ==
LOC: HO.LAB 13:50
PROVIDERS: PCP Internal Medicine; Visit Provider Internal Medicine
DX: E11.65 Type 2 diabetes mellitus with hyperglycemia (principal); I10 Essential (primary) hypertension; E78.00 Pure hypercholesterolemia, unspecified; M71.22 Synovial cyst of popliteal space [Baker], left knee; M79.89 Other specified soft tissue disorders; M25.552 Pain in left hip; M25.561 Pain in right knee; M10.9 Gout, unspecified; Z79.84 Long term (current) use of oral hypoglycemic drugs
CPT/HCPCS: 36415; 73502; 73560; 80053; 80061; 82043; 82570; 82607; 82728; 82746; 83036; 83540; 84439; 84443; 84550; 85025; 85045; 96127; 99212

== ENCOUNTER 2024-10-01 13:50 | Outpatient (AMB) | payer OTHER, SELFPAY ==
[2024-10-01 13:53] VITALS: BP 118/62; PULSE 60; O2SAT 98; BMI 38.8
--- NOTE | 2024-10-01 13:53 | MHC.PC.OV ---
Vital Signs 10/01/24 13:53 Height 5 ft 9 in Weight 263 lb BMI 38.8 BP 118/62 Blood Pressure Location Lt brachial Position Sitting Pulse 60 Pulse Source Pulse Oximeter Pulse Oximetry (%) 98 Oxygen Delivery Method Room Air Intake [place] [facility] keeps locking Allergies latex [LATEX] Allergy (Intermediate, Verified 10/01/24 13:54) RASH acetaminophen [Tylenol] Allergy (Unknown, Verified 10/01/24 13:54) stomach upset amoxicillin Allergy (Unknown, Verified 10/01/24 13:54) nausea and vomiting Tobacco use date assessed: 10/01/24 Dental Screening Dental Screen Date: 10/01/24 Did you have a dental visit in the last 12 months?: Yes Did you have a dental problem in the last 6 months where you did not have access to dental care?: No Was dental information given to patient?: Patient has dentist [place] [facility] [place] left knee keeps locking HPI Details fall 2 days ago and had the L knee pain but the Er visit is 09/17/2024 but this time fall had trauma L hip and more L knee pain. [facility] Medical History (Updated 10/01/24 @ 14:23 by Randa Shanks MD) Obesity (BMI 30-39.9) Type 2 diabetes mellitus with hyperglycemia Hypertension Essential tremor Hypercholesterolemia Anxiety and depression Contracture, left hand Gout Surgical History (Updated 07/29/22 @ 15:05 by Randa Shanks MD) History of tonsillectomy History of cholecystectomy History of sleeve gastrectomy Family History Father No problems noted. Mother No problems noted. 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 1. Little interest or pleasure in doing things: not at all 2. Feeling down, depressed, or hopeless: not at all 3. Trouble falling or staying asleep, or sleeping too much: not at all 4. Feeling tired or having little energy: not at all 5. Poor appetite or overeating: not at all 6. Feeling bad about yourself - or that you are a failure or have let yourself or your family down: not at all 7. Trouble concentrating on things, such as reading the newspaper or watching television: not at all 8. Moving or speaking so slowly that other people could have noticed. Or the opposite - being so fidgety or restless that you have been moving around a lot more than usual: not at all 9. Thoughts that you would be better off or of hurting yourself in some way: not at all Total score: 0 Depression Screening Interpretation: Negative Depression Screening Done: Yes 34471 - PHQ-9 Billing: Yes Source: Developed by Drs. Jason Capellan, Luisana Bernstein, Shahid Dorman and colleagues, with an educational hemalatha from [employer]. Thrive Questionnaire Date Thrive assessed: 10/01/24 I am a: Patient What is your living situation today?: I have a steady place to live Within the past 12 months, did the food you bought not last and you didn't have the money to get more?: I choose not to answer this question Within the past 12 months, did you worry whether your food would run out before you got money to buy more?: I choose not to answer this question Do you have trouble paying for medicines?: No Do you have trouble getting transportation to medical appointments?: No Do you have trouble paying your heating and electricity bill?: No Do you have trouble taking care of your child, family member or friend?: No Do you have trouble with day-to-day activities such as bathing, preparing meals, shopping, managing finances, etc.?: No Are you currently unemployed and looking for a job?: No Are you interested in more education?: No Please select the resources that you would like help with: None Currently or been in a relationship where the following occur: No concerns reported THRIVE Score: 0 AUDIT C Alcohol Use Questionnaire (AUDIT-C) 1. How often do you have a drink containing alcohol?: Never Total Score: 0 HIMA-7 AMB Questionnaire HIMA-7 Date HIMA - 7 assessed: 10/01/24 Feeling nervous, anxious, or on edge: 0 = Not at all Not being able to stop or control worryin = Not at all Worrying too much about different things: 0 = Not at all Trouble relaxin = Not at all Being so restless that it is hard to sit still: 0 = Not at all Becoming easily annoyed or irritable: 0 = Not at all Feeling afraid as if something awful might happen: 0 = Not at all Total HIMA-7 score (0-4 normal; 5-9 mild; 10-14 moderate; 15-21 severe): 0 Source: Developed by Drs. Jason Capellan, Luisana Bernstein, Shahid Dorman and colleagues, with an educational hemalatha from [employer]. HIMA-7 Assessment Billing HIMA-7 Assessment Tool: HIMA-7 Assessment 29290 Physical exam (Primary Care) Vital Signs: Last Vital Signs Pulse 60 10/01/24 13:53 BP 118/62 10/01/24 13:53 Pulse Ox 98 10/01/24 13:53 Oxygen Delivery Method Room Air 10/01/24 13:53 BMI result Body Mass Index 38.8 Tobacco/Smoking Status: Tobacco use Status Tobacco use date assessed 10/01/24 10/01/24 13:54 Patient Tobacco Use Status Never used Tobacco 10/01/24 13:54 Tobacco use type Cigarette 10/01/24 13:54 e-Cigarette/Vaping Use Never Used 10/01/24 13:54 PHQ-9: PHQ-9 Score PHQ-9: Total score 0 10/01/24 14:14 Depression Screening Interpretation: Negative Thrive Assessment: Date of Thrive Assessment Date Thrive assessed 10/01/24 10/01/24 13:54 Currently or been in a relationship where the following occur: No concerns reported Const General: alert; No acute distress Eyes Conjunctivae: conjunctivae normal Resp Auscultation: clear to auscultation bilaterally Cardio Rate: regular rate Rhythm: regular rhythm GI Inspection: Yes normal to inspection Skin Full body images: 1. 3 cm hematoma Extrem Other: Lower extremity edema with bruise on the left hip leg raising normal angle but has some pain on the lateral thigh area as well as pain on the popliteal area left-sided General: Yes edema Results AMB Hemoglobin A1c AMB Hemoglobin A1c 6.2 % Last Edit by Olga Davis CMA on 10/01/24 14:15 Results Reviewed Results Reviewed: Laboratory Last Values Hgb A1c (Clinic) 6.2 % (4.0-6.0) H 10/01/24 14:01 Coding Level of Care Code Est Pt Level 4 (64898) Complex EM visit Add On G2211 Diagnoses Type 2 diabetes mellitus with hyperglycemia, without long-term current use of insulin E11.65 Diabetes mellitus nursing home insulin use: without nursing home use Essential hypertension I10 Hypertension type: essential hypertension Hypercholesterolemia E78.00 Dugan's cyst of knee M71.22 Laterality: left Fall W19.XXXA Leg swelling M79.89 Left hip pain M25.552 Acute pain of right knee M25.561 Chronicity: acute Laterality: right Additional Codes HIMA-7 Assessment Billing - HIMA-7 Assessment Tool: HIMA-7 Assessment 04135 ([id number]) PHQ-9 - 74075 - PHQ-9 Billing: Yes ([id number]) Assessment & Plan Assessment & Plan (1) Type 2 diabetes mellitus with hyperglycemia: Comment: [facility] Code(s): E11.65 - Type 2 diabetes mellitus with hyperglycemia Category: Medical Qualifiers: Diabetes mellitus technician terminal and repeater insulin use: without nursing home use Qualified Code(s): E11.65 - Type 2 diabetes mellitus with hyperglycemia Plan: Decrease the amount of carbohydrate intake, pasta, bread, rice and potatoes are all sugar and that is aside from all the sweet stuff, remember that fruits are good but they are Sweet also. Hemoglobin A1c goal of less than 6.5. Patient on metformin 500 mg once a day (2) Hypertension: Code(s): I10 - Essential (primary) hypertension Category: Medical Qualifiers: Hypertension type: essential hypertension Qualified Code(s): I10 - Essential (primary) hypertension Plan: Continue with blood pressure medication. Decrease salt intake and exercise (3) Hypercholesterolemia: Code(s): E78.00 - Pure hypercholesterolemia, unspecified Category: Medical Plan: Avoid fried foods, chicken skin, eggs, butter margarine, pastries and meat. Be it pork or beef they have a lot of cholesterol patient needs to get blood work done LDL goal of less than 100 and triglyceride of less than 150 (4) Dugan's cyst of knee: Code(s): M71.20 - Synovial cyst of popliteal space [Dugan], unspecified knee Category: Medical Qualifiers: Laterality: left Qualified Code(s): M71.22 - Synovial cyst of popliteal space [Dugan], left knee Plan: Discussed about treatment of Dugan's cyst (5) Fall: Comment: 09/29/2024 Code(s): W19.XXXA - Unspecified fall, initial encounter Category: Medical (6) Leg swelling: Code(s): M79.89 - Other specified soft tissue disorders Category: Medical (7) Left hip pain: Comment: 09/29/2024 Code(s): M25.552 - Pain in left hip Category: Medical (8) Knee pain: Comment: L knee pain 09/2024 Code(s): M25.569 - Pain in unspecified knee Category: Medical Qualifiers: Chronicity: acute Laterality: right Qualified Code(s): M25.561 - Pain in right knee Plan History of Present Illness The patient is a 48-year-old male presenting with acute knee pain and swelling. His medical history includes obesity, diabetes mellitus, hypertension, hypercholesterolemia, gout, and anxiety disorder. He previously experienced knee effusion in April 2024 and recently noted a weight gain of nine pounds. On September 17, he went to the emergency room for knee swelling, which was thought to be related to a Dugan's cyst, but received no further specific treatment at that time. The recent exacerbation of symptoms began after a fall three days prior to the visit, which occurred at work. This recent event resulted in additional swelling down to the left calf and increased pain in the left hip and knee. Prior to the fall, he reports controlled symptoms. Currently, he is experiencing difficulty in bearing weight and mobility due to swelling in both legs. The results from a past lab test indicated anemia and elevated uric acid, while his electrolytes and renal functions were within normal limits. A prior cholesterol test was in 2019, and he manages diabetes with metformin. His hesitance to use prednisone is due to adverse effects and destabilization of glucose control. Health Maintenance - Hemoglobin A1c goal of less than 6.5% discussed with patient. - Urged the initiation of cholesterol monitoring since the last test was in 2019; LDL goal set at below 100 mg/dL and triglycerides below 150 mg/dL. - Blood work is due; already educated on fasting requirements. - Discussed weight management strategies given the significant recent weight gain and known obesity. - Encouraged daily leg elevation and use of compression stockings to aid with peripheral edema. Social History - Employment: Active work setting; noted a recent fall which led to the current problem. - Functional status: Reports difficulty with mobility due to knee and leg pain. - Exercise: Discussed but no specific details provided regarding regular physical activity. Review of Systems - Musculoskeletal: Reports acute pain and swelling of the knee, pain in the left hip, and generalized lower extremity discomfort. Denies prior hip pain - Cardiovascular: Reports bilateral leg swelling. - Endocrine: Denies specific symptoms but has diabetes which affects management. - Dermatological: Reports bruising following the fall. - Neurological: Denies loss of consciousness or neurological symptoms post-fall. Physical Exam - Musculoskeletal- Tenderness noted in left hip and knee upon palpation. Bruising observed on the left hip. Results - Labs: Recent lab work indicated anemia, elevated uric acid, and calcium levels. Prior lab work in January showed normal electrolytes and renal function. - Imaging: Plans made for x-ray examination of the left hip and knee. Plan We will conduct x-ray imaging of the left hip and knee to evaluate potential fractures or structural injuries considering post-fall symptoms. Ibuprofen 800 mg has been prescribed for pain management, with gastrointestinal precautions addressed due to its blood-thinning potential, especially post-trauma. Use of knee braces and compression stockings is recommended to alleviate swelling and promote venous return, potentially related to obesity and prolonged standing. The patient's metformin regimen is maintained for diabetes management, with instructions to monitor glucose levels closely. Laboratory evaluations, including Hemoglobin A1c, uric acid, and lipid profiles, will be repeated after fasting for further assessment of metabolic parameters. Ongoing weight management discussions emphasized a structured approach to reduce comorbidities associated with obesity. Regular follow-up will help monitor the response to these interventions and allow for necessary adjustments to the therapeutic strategy. Patient was informed and verbally consented to the use of an ambient scribe for clinic note documentation during this visit. Discussion Notes During the consultation, I emphasized the importance of conducting x-ray assessments to verify any fractures or complications due to the fall. Treatment choices explained included the continuation of ibuprofen for pain relief, with cautionary advice regarding its effects in patients susceptible to bleeding or with history of gastric approaches, emphasizing taking it with meals. We discussed the use of knee braces and compression stockings to mitigate the effects of swelling. The decision to avoid prednisone was a mutual agreement due to potential adverse effects on his blood glucose levels. Discussions on future management pertained to metabolic control with a focused emphasis on comprehensive weight management to improve both glucose control and alleviate systemic burden potentially aggravating his current musculoskeletal issues. Plans include follow-up on x-ray results and test outcomes, in addition to assessing therapeutic efficiency and any necessary adjustments. Risks, benefits, and strategies were communicated for each intervention proposed, ensuring patient comprehension and cooperation regarding the care continuum. Return precautions were outlined should symptoms worsen. Patient Instructions - Take prescribed ibuprofen 800 mg with food to manage pain. - Go for x-ray imaging of the left hip and knee as scheduled. - Elevate your legs while sitting and use compression stockings as advised. - Continue your regular diabetes medications, monitor blood sugar closely, and plan to get blood tests done soon. - Follow a healthy weight management plan with balanced diet and exercise. - Rest and use leg support like brace to help with swelling and pain. - Return to the clinic if you experience worsening symptoms or complications. - Contact us if you have questions regarding your medications or care instructions. Orders: Orders Hemoglobin A1c Today E11.65 - Type 2 diabetes mellitus with hyperglycemia XR hip LT w PEL1V Today M25.552 - Pain in left hip XR knee LT 2V Today M25.561 - Pain in right knee AMB Hemoglobin A1c Today Z13.9 - Encounter for screening, unspecified Medications: Refilled ibuprofen 800 mg PO Q8H PRN 30 tabs 0RF pain M25.561 - Pain in right knee
--- OUTSIDE RECORDS SUMMARY | 2024-10-01 14:33 | XMS_ITS | Clinical Summary ---
Author Organization [facility] Address [address] [place] [phone] Phone Care Team Providers Care Inspector Returned Materials Name Role Phone Unavailable Primary Care Provider Unavailabl e Social History Tobacco Use Types Packs/Day Years Used Date Smoking Tobacco: Never Assessed Sex and Gender Information Value Date Recorded Sex Assigned at Not on file Legal Sex Male 10:51 PM EST Gender Identity Not on file Sexual Orientation Not on file Plan of Treatment Health Maintenance Due Date Last Done Comments DTaP,Tdap,and Td Vaccines (1 - Tdap) 12/17/1995 Hepatitis B Vaccines (1 of 3 - 19+ 3-dose series) 12/17/1995 Cholesterol Screening (Lipid Panel) 05/12/2022 Colorectal Cancer Screening: Colonoscopy 05/12/2022 Depression Screening 05/12/2022 HIV Screening 05/12/2022 Hepatitis C Screening 05/12/2022 Social Influencers of Health Screening 05/12/2022 COVID-19 Vaccine (2023-2 5 season) 2024 Influenza Vaccine (Season Ended) 2025 HIB Vaccines Aged Out No longer eligi ble based on patient's age to complete this topic HPV Vaccines Aged Out No longer eligi ble based on patient's age to complete this topic Hepatitis A Vaccines Aged Out No long er eligible based on patient's age to complete this topic IPV Vaccines Aged Out No longer eligi ble based on patient's age to complete this topic MMR Vaccines Aged Out No longer eligi ble based on patient's age to complete this topic Meningococcal ACWY Vaccine Aged Out N o longer eligible based on patient's age to complete this topic Meningococcal B Vaccine Aged Out No l onger eligible based on patient's age to complete this topic Pneumococcal Vaccine: Pediat rics (0 to 5 Years) and At-Risk Patients (6 to 64 Years) Aged Out No longer eligible b ased on patient's age to complete this topic RSV Immunization Patients Un martine 20 months Aged Out No longer eligible b ased on patient's age to complete this topic Varicella Vaccines Aged Out No longer eligible based on patient's age to complete this topic Insurance [place]ICA[place] - [place]
== END 2024-10-01 14:36 | disposition home or self-care (01) ==
LOC: HO.HMCH 13:51
PROVIDERS: PCP Internal Medicine; Visit Provider Internal Medicine
DX: E11.65 Type 2 diabetes mellitus with hyperglycemia (principal); I10 Essential (primary) hypertension; E78.00 Pure hypercholesterolemia, unspecified; M71.22 Synovial cyst of popliteal space [Baker], left knee; W19.XXXA Unspecified fall, initial encounter; M79.89 Other specified soft tissue disorders; M25.552 Pain in left hip; M25.561 Pain in right knee; Z13.9 Encounter for screening, unspecified

== ENCOUNTER → 2024-10-01 15:00 | Outpatient (BNV) | payer OTHER, SELFPAY | PROVIDERS: PCP Internal Medicine; Visit Provider Radiology Diagnostic Radiology | DX: M25.552 Pain in left hip (principal); M76.892 Other specified enthesopathies of left lower limb, excluding foot | CPT/HCPCS: 73502; 73560 ==

== ENCOUNTER 2024-11-03 05:27 | Inpatient (IN) | payer OTHER, SELFPAY ==
[2024-11-03] VITALS (7 sets, daily range): BP systolic 90–122; BP diastolic 44–73; PULSE 69–101; RESP 15–32; TEMP 36.7–38.8; O2SAT 95–99; BMI 37.4
--- NOTE | ~2024-11-03 | US_ITS ---
CLINICAL HISTORY: acute kidney injury US Renal Comparison: None Findings: Right kidney normal size and echotexture, 12.2 cm length. Left kidney normal size and echotexture, 12.1 cm length. No collecting system dilatation of either kidney. Normal color Doppler. IMPRESSION: 1. Normal kidneys. This document has been electronically signed by: Percy Mane MD on 11/07/2024 08:57:31
--- NOTE | ~2024-11-03 | CT_ITS ---
EXAMINATION: CT PELVIS WITH IV CONTRAST HISTORY: large abscess to right groin COMPARISON: There are no prior studies for comparison. TECHNIQUE: CT scan of the pelvis was performed following administration of 85 mL Omnipaque 350 using standard departmental protocol. Coronal and sagittal reformatted images were generated and reviewed. Oral contrast material was not administered at the request of the referring physician. This CT exam was performed with one or more of the following dose reduction techniques: automated exposure control, adjustment of the mA and/or kV according to patient size, use of iterative reconstruction technique. DLP: 723 mGy-cm FINDINGS: There is diffuse skin thickening and infiltration of the subcutaneous fat of the medial aspect of the right thigh, consistent with cellulitis. Small fluid pockets are noted measuring up to 2.5 cm in size without an enhancing rim. There are multiple enlarged lymph nodes including a 1.3 cm para-aortic lymph node, a 2.3 cm right pelvic sidewall lymph node, a 1.4 cm left pelvic sidewall lymph node, and multiple right inguinal nodes measuring up to 2.7 cm in size. There is no ascites in the pelvis. The urinary bladder and prostate are unremarkable. The visualized bowel loops are unremarkable. The bones are intact. CT/CT pelvis w IV con IMPRESSION: 1. Findings consistent with cellulitis involving the medial aspect of the right thigh. Small fluid pockets are noted measuring up to 2.5 cm in size. 2. Pelvic lymphadenopathy as described. Electronically signed by: Jason Woods MD 11/03/2024 10:54 AM EDT
[2024-11-03 05:47] LABS: MANUAL DIFF FLAG NO
--- OUTSIDE RECORDS SUMMARY | 2024-11-03 05:47 | XMS_ITS | Clinical Summary ---
Author Organization [facility] Address [address] [place] [phone] Phone Care Team Providers Care Upset Operator Name Role Phone Unavailable Primary Care Provider [...]
[2024-11-03 05:48] LABS: Basophils Absolute Auto 0.1 X10*3/uL (0.0-0.2); Basophils Percent Auto 0.3 % (0-2); Eosinophils Absolute Auto 0.1 X10*3/uL (0.0-0.4); Eosinophils Percent Auto 0.6 % (0-4); Hematocrit 32.8 % (42.0-52.0); Hemoglobin 10.3 g/dl (14.0-18.0); Imm Gran Abs Auto 0.13 X10*3/uL (0.00-0.03); Imm Gran Pct Auto 0.7 % (0.0-0.4); Lymphocytes Absolute Auto 0.8 X10*3/uL (1.2-4.9); Lymphocytes Percent Auto 4.3 % (20-40); Mean Corpuscular HGB Conc 31.4 g/dl (31.0-36.0); Mean Corpuscular Hemoglobin 28.1 pg (27.0-33.0); Mean Corpuscular Volume 89.4 fL (80.0-98.0); Mean Platelet Volume 9.5 fL (9.4-12.4); Monocytes Absolute Auto 1.3 X10*3/uL (0.1-1.2); Monocytes Percent Auto 6.8 % (2-11); Neutrophils Absolute Auto 16.6 x10*3/uL (2.0-8.3); Neutrophils Percent Auto 87.3 % (45-73); Platelet Count 211 X10*3/uL (160-400); Red Blood Count 3.67 X10*6/uL (4.60-5.80); Red Cell Distribution Width 14.6 % (11.0-16.0)
[2024-11-03 06:13] LABS: Alanine Aminotransferase 17 U/L (0-40); Albumin Level 3.6 g/dL (3.5-5.0); Alkaline Phosphatase 99 U/L (39-117); Anion Gap 14 (12-20); Aspartate Amino Transferase 26 U/L (5-37); Bilirubin Total 0.9 mg/dL (0.0-1.0); Blood Urea Nitrogen 12 mg/dL (9-16); Calcium 8.9 mg/dL (8.4-10.2); Carbon Dioxide 26 mmol/L (22-29); Chloride 103 mmol/L (96-108); Creatinine Clr Calc Pharmacy 131.1; Estimated Glomerular Filt Rate > 60; Glucose Random 126 mg/dL (60-115); Potassium 3.5 mmol/L (3.3-5.1); Sodium 139 mmol/L (135-145); Total Protein 6.7 g/dL (6.5-8.0)
--- NOTE | 2024-11-03 08:45 | ED_ITS ---
HPI - General Adult General Chief complaint: Skin/Abscess/Foreign Body Stated complaint: 2 abscesses on right leg, swelling & diff ambulate Time Seen by Provider: 11/03/24 08:42 Source: patient and EMS Mode of arrival: EMS Limitations: no limitations History of Present Illness ED Provider: Nhi Albrecht PA-C HPI narrative: Patient is a 48 year old assigned male at with a history of gout, DM, HTN, PVD, and s/p gastric sleeve presenting to the emergency department today with right groin / thigh pain and swelling. Patient states that over the last 4 days he has had worsening right groin / thigh swelling and fevers. Patient denies any dizziness, lightheadedness, abdominal pain, nausea, vomiting, chills, blurry vision, double vision, loss of vision, chest pain, difficulty breathing, shortness of breath, back pain, night sweats, pain with urination, increased urinary frequency, increased urinary urgency, blood in his urine or stool, syncope or a near syncopal episode, recent trauma or falls, bowel incontinence, bladder incontinence, or any other complaints at this time. Onset (ago): day(s) (4) Location: right and lower extremity Relieving factors: none Exacerbating factors: movement Associated symptoms: fever/chills Treatments prior to arrival: none Related Data Home Medications ?Medication ?Instructions ?Recorded ?Confirmed multivitamin 1 tab PO DAILY 03/27/21 04/19/24 pyridoxine (vitamin B6) 50 mg 50 mg PO DAILY 11/27/21 04/19/24 tablet Previous Rx's ?Medication ?Instructions ?Recorded compress.stocking,knee,reg,lrg #2 ea 10/11/20 metformin 500 mg tablet 500 mg PO DAILY #90 tabs 03/20/21 cholecalciferol (vitamin D3) 25 25 mcg PO DAILY #90 tabs 04/11/22 mcg (1,000 unit) tablet allopurinol 300 mg tablet 600 mg (2 x 300 mg) PO DAILY #60 10/14/22 tabs cyclobenzaprine 5 mg tablet 5 mg PO TID PRN muscle spasm #30 04/19/24 tabs ibuprofen 800 mg tablet 800 mg PO Q8H PRN pain #30 tabs 10/01/24 Allergies Allergy/AdvReac Type Severity Reaction Status Date / Time latex [LATEX] Allergy Intermediate RASH Verified 11/03/24 05:29 acetaminophen [Tylenol] Allergy Unknown stomach Verified 11/03/24 05:29 upset amoxicillin Allergy Unknown nausea and Verified 11/03/24 05:29 vomiting Review of Systems 2 Constitutional: Constitutional: Reports no additional constitutional complaints, Denies chills, Denies fever(s) and Denies night sweats Eyes: Eyes: Reports no additional eye complaints, Denies blurry vision, Denies change in vision, Denies diplopia, Denies eye discharge, Denies loss of vision and Denies eye pain ENT: Denies dizziness Cardiovascular: Cardiovascular: Reports no additional cardiovascular complaints, Denies chest pain, Denies lightheadedness, Denies Loss of Consciousness and Denies dyspnea Respiratory: Respiratory: Reports no additional respiratory complaints and Denies dyspnea Gastrointestinal: Gastrointestinal: Reports no additional gastrointestinal complaints, Denies abdominal pain, Denies melena, Denies hematochezia, Denies change in bowel habits and Denies change in stool character Genitourinary: Genitourinary: Reports no additional male genitourinary complaints, Denies hematuria, Denies oliguria, Denies difficulty urinating, Denies dysuria, Denies urinary frequency, Denies urinary hesitancy, Denies urinary incontinence and Denies urinary urgency Musculoskeletal: Musculoskeletal: Reports no additional musculoskeletal complaints, Denies numbness and Denies tingling Comments: right groin / upper leg swelling and pain Neurologic: Denies dizziness, Denies loss of vision, Denies numbness and Denies tingling Psychiatric: Psychiatric: Reports no additional psychiatric complaints Endocrine: Endocrine: Reports no additional endocrine complaints Hematologic/Lymphatic: Hematologic/Lymphatic: Reports no additional hematologic/lymphatic complaints Allergic/Immunologic: Allergic/Immunologic: Reports no additional allergic/immunologic complaints [facility] Past Medical History Attestation statement: The following information was validated with the patient. Source: old records reviewed and nursing notes reviewed Medical History Obesity (BMI 30-39.9) Type 2 diabetes mellitus with hyperglycemia Hypertension Essential tremor Hypercholesterolemia Anxiety and depression Contracture, left hand Gout Surgical History History of tonsillectomy History of cholecystectomy History of sleeve gastrectomy Family History Family History Father No problems noted. Mother No problems noted. Social History Social History Household Members: None Housing: Apartment Alcohol intake: current Alcohol intake frequency: a few times a week Alcohol type: beer Patient Tobacco Use Status: Never used Tobacco Tobacco use type: Cigarette Smoked in Last 30 Days: No e-Cigarette/Vaping Use: Never Used Second Hand Smoke Exposure: No Use of substances other than those prescribed or required for medical reasons: No Advance Directives: No Advance Directives Information Provided: No Do you have a plan to hurt others: No Plan service: No Current occupational status: employed Current occupation: [employer] Current occupational exposures/hazards: No Cognitive needs: No Hearing needs: No Vision needs: No Physical Exam ED Vital Signs: Vital Signs - 24 hr 11/03/24 05:28 11/03/24 07:54 11/03/24 09:24 Temperature 98.3 F 101.8 F H Pulse Rate 101 H 89 85 Respiratory Rate 18 32 H 16 Blood Pressure 109/69 122/73 116/66 Pulse Oximetry 99 98 99 Oxygen Delivery Method Room Air Room Air Room Air 11/03/24 10:59 Temperature 100.0 F Pulse Rate 75 Respiratory Rate 20 Blood Pressure 97/47 L Pulse Oximetry 95 Oxygen Delivery Method Room Air BMI result Body Mass Index 37.4 Const General: cooperative, no acute distress, alert and awake Nutritional Appearance: well nourished Orientation/consciousness: patient oriented x3 HENMT Head: Yes normal to inspection and Yes atraumatic Ears: hearing grossly normal bilaterally and external ears normal General nose exam: Normal external nose present, no nasal discharge noted and no epistaxis Face and sinus: Yes normal facial exam, No abrasion and No laceration Mouth: Normal oral and palatal mucosa present, no drooling and no muffled voice Eyes General: appearance normal, both eyes and all related structures Periorbital: periorbital findings normal Eyelids: Yes eyelids normal Conjunctivae: conjunctivae normal Pupils: Equal, round and reactive pupils present EOM: EOMs intact bilaterally Neck Neck: Yes normal visual inspection, Yes full ROM and Yes no lymphadenopathy Resp Effort & Inspection: normal respiratory effort and able to speak in complete sentences Neuro General: patient oriented x3, moves all extremities and CN's II-XI intact bilaterally Cranial nerves: Yes Equal, round and reactive pupils present Cognition (Neuro): normal cognition Extrem Other: General: Yes full ROM and Yes capillary refill normal Psych Appearance: grossly normal Mental Status: mental status grossly normal Affect: normal affect Attitude: cooperative Thought process: Normal thought process present Thought content: Normal thought content present Insight: Good insight present (Psych) Medications Administered Generic Name Dose Route Start Last Admin Trade Name Freq PRN Reason Stop Dose Admin Sodium Chloride 2,121 mls @ 2,121 mls/hr 11/03/24 11:00 11/03/24 11:07 Ns IV 11/03/24 11:59 2,121 mls/hr .Q1H STA Administration Discontinued Medications Generic Name Dose Route Start Last Admin Trade Name Freq PRN Reason Stop Dose Admin Piperacillin Sod/Tazobactam 50 mls @ 100 mls/hr 11/03/24 08:45 11/03/24 09:54 Sod 3.375 gm/ Sodium Chloride IV 11/03/24 09:14 Infused ONCE ONE Infusion Acetaminophen 1,000 mg in 100 mls @ 400 mls/hr 11/03/24 08:46 11/03/24 10:01 Ofirmev IV 11/03/24 09:00 Infused ONCE ONE Infusion Vancomycin HCl 2,000 mg in 500 mls @ 250 mls/hr 11/03/24 09:00 11/03/24 09:56 Vancomycin/Ns IV 11/03/24 10:59 250 mls/hr ONCE ONE Administration Iohexol 85 ml 11/03/24 10:30 11/03/24 10:33 Iohexol 350 Mg/Ml 100 Ml Infus..Btl IV 11/03/24 10:31 85 ml ONCE ONE Administration Morphine Sulfate 4 mg 11/03/24 09:20 11/03/24 09:55 Morphine Sulfate 4 Mg/Ml Cartridge IVPUSH 11/03/24 09:21 4 mg ONCE ONE Administration Protocol Ondansetron HCl 4 mg 11/03/24 09:20 11/03/24 09:54 Ondansetron Hcl 4 Mg/2 Ml Vial IVPUSH 11/03/24 09:21 4 mg ONCE ONE Administration Pantoprazole Sodium 40 mg 11/03/24 08:47 11/03/24 09:14 Pantoprazole Sodium 40 Mg/10 Ml Vial IVPUSH 11/03/24 08:48 40 mg ONCE ONE Administration Medical Decision Making Medical Decision Making MDM Narrative: Patient is a 48 year old assigned male at with a history of gout, DM, HTN, PVD, and s/p gastric sleeve presenting to the emergency department today with right groin / thigh pain and swelling. Patient's physical exam was as noted in the physical exam portion of this note. Patient's blood work showed an elevated WBC count but was otherwise unremarkable. Patient's CT pelvis with IV con showed right medial thigh cellulitis with small fluid pockets measuring up to 2.5 cm. I spoke with the general surgery team who recommended admission to medicine and states they would follow the case. I spoke with the hospitalist team who agreed to admission. Patient's clinical presentation is most consistent with a right medial thigh cellulitis with abscess @0845. Patient was immediately given IV vancomycin and zosyn. I explained my physical exam findings as well as all test results to the patient. I answered all questions asked by the patient. Patient verbalized agreement and understanding with this treatment plan and admission. Differential Diagnosis Differential Diagnoses: The differential diagnosis associated with the presentation includes Cellulitis Abscess Admission/Observation Consideration of admission/observation: Escalation of care including admission/observation considered Patient admitted as noted in the MDM Rationale portion of this note. Consult Healthcare Provider Management of the patient was discussed with: Hospitalist (agreed to admission as noted in the MDM Rationale portion of this note. ) and [employer] (spoke with the general surgery team as noted in the MDM Rationale portion of this note. ) Lab Data [facility] Lab Attestation statement: I reviewed the patient's lab results. My interpretation of these results are in the MDM Rationale portion of this note. 11/03/24 05:42 11/03/24 05:42 Labs: Lab Results 11/03/24 11/03/24 Range/Units 05:42 08:44 WBC 19.0 H (4.8-10.8) X10*3/uL RBC 3.67 L (4.60-5.80) X10*6/uL Hgb 10.3 L (14.0-18.0) g/dl Hct 32.8 L (42.0-52.0) % MCV 89.4 (80.0-98.0) fL MCH 28.1 (27.0-33.0) pg MCHC 31.4 (31.0-36.0) g/dl RDW 14.6 (11.0-16.0) % Plt Count 211 D (160-400) X10*3/uL MPV 9.5 (9.4-12.4) fL Immature Gran % (Auto) 0.7 H (0.0-0.4) % Neut % (Auto) 87.3 H (45-73) % Lymph % (Auto) 4.3 L (20-40) % [place] % (Auto) 6.8 (2-11) % Eos % (Auto) 0.6 (0-4) % Baso % (Auto) 0.3 (0-2) % Lymph # (Auto) 0.8 L (1.2-4.9) X10*3/uL [place] # (Auto) 1.3 H (0.1-1.2) X10*3/uL Eos # (Auto) 0.1 (0.0-0.4) X10*3/uL Baso # (Auto) 0.1 (0.0-0.2) X10*3/uL Abs Immat Gran (auto) 0.13 H (0.00-0.03) X10*3/uL Absolute Neuts (auto) 16.6 H (2.0-8.3) x10*3/uL Absolute Nucleated RBC 0.000 (0.0-0.012) X10*3/uL Nucleated RBC % (auto) 0.0 (0.0-0.2) /100WBC Sodium 139 (135-145) mmol/L Potassium 3.5 (3.3-5.1) mmol/L Chloride 103 (96-108) mmol/L Carbon Dioxide 26 (22-29) mmol/L Anion Gap 14 (12-20) BUN 12 (9-16) mg/dL Creatinine 0.87 (0.5-1.4) mg/dL Estim Creat Clear Calc 131.1 Estimated GFR > 60 Random Glucose 126 H (60-115) mg/dL Lactic Acid 1.2 (0.5-2.0) mmol/L Calcium 8.9 (8.4-10.2) mg/dL Total Bilirubin 0.9 (0.0-1.0) mg/dL AST 26 (5-37) U/L ALT 17 (0-40) U/L Alkaline Phosphatase 99 (39-117) U/L Total Protein 6.7 (6.5-8.0) g/dL Albumin 3.6 (3.5-5.0) g/dL Independent Interpretation I performed an independent interpretation of an: CT Scan Interpretation: My interpretation is in agreement with the radiologist's impression of this imaging study. L Report Number: [id number]: Total DLP = 0.00 mGy-cm EXAMINATION: CT PELVIS WITH IV CONTRAST HISTORY: large abscess to right groin COMPARISON: There are no prior studies for comparison. TECHNIQUE: CT scan of the pelvis was performed following administration of 85 mL Omnipaque 350 using standard departmental protocol. Coronal and sagittal reformatted images were generated and reviewed. Oral contrast material was not administered at the request of the referring physician. This CT exam was performed with one or more of the following dose reduction techniques: automated exposure control, adjustment of the mA and/or kV according to patient size, use of iterative reconstruction technique. DLP: 723 mGy-cm FINDINGS: There is diffuse skin thickening and infiltration of the subcutaneous fat of the medial aspect of the right thigh, consistent with cellulitis. Small fluid pockets are noted measuring up to 2.5 cm in size without an enhancing rim. There are multiple enlarged lymph nodes including a 1.3 cm para-aortic lymph node, a 2.3 cm right pelvic sidewall lymph node, a 1.4 cm left pelvic sidewall lymph node, and multiple right inguinal nodes measuring up to 2.7 cm in size. There is no ascites in the pelvis. The urinary bladder and prostate are unremarkable. The visualized bowel loops are unremarkable. The bones are intact. CT/CT pelvis w IV con IMPRESSION: 1. Findings consistent with cellulitis involving the medial aspect of the right thigh. Small fluid pockets are noted measuring up to 2.5 cm in size. 2. Pelvic lymphadenopathy as described. Electronically signed by: Jason Woods MD 11/03/2024 10:54 AM EDT Dictated By: Jason Woods MD Signed By: Electronically signed by Jason Woods MD 11/03/24 1054 Radiology Impression Discussion of test interpretation with radiology: I have reviewed the radiologist's reading. Chronic Conditions Patient?s care impacted by: Diabetes Critical Care Time Critical Care Time Critical Care Time: Yes Total Critical Care Time: 42 Attestation: I spent 42 minutes of Critical Care Time with this patient. This does not include time spent on separately reported billable procedures. Discharge Plan Discharge Clinical Impression: Cellulitis, Abscess Patient Disposition: Admitted As Inpatient Prescriptions: No Action cholecalciferol (vitamin D3) 25 mcg (1,000 unit) tablet 25 mcg PO DAILY Qty: 90 0RF allopurinol 300 mg tablet 600 mg PO DAILY Qty: 60 5RF (DME) compress.stocking,knee,reg,lrg Misc See Rx Instructions .ROUTE .MEDSUPPLY Qty: 2 0RF Rx Instructions: As directed metformin 500 mg tablet 500 mg PO DAILY Qty: 90 0RF pyridoxine (vitamin B6) 50 mg tablet 50 mg PO DAILY multivitamin Tablet 1 tab PO DAILY cyclobenzaprine 5 mg tablet 5 mg PO TID PRN (Reason: muscle spasm) Qty: 30 0RF ibuprofen 800 mg tablet 800 mg PO Q8H PRN (Reason: pain) Qty: 30 0RF Print Language: Spanish
[2024-11-03 09:12] LABS: Lactic Acid 1.2 mmol/L (0.5-2.0)
[2024-11-03] MEDS: Pantoprazole Sodium 40 MG/10 ML VIAL IVPUSH (09:14)
[2024-11-03] MEDS: Acetaminophen 1,000 MG/100 ML PIGGYBACK 400 MG IV (09:15)
[2024-11-03] MEDS: Piperacillin Sodium/Tazobactam 3.375 GM in 0.9 % Sodium Chloride 50 ML IV ×3 (09:16→21:16)
[2024-11-03] MEDS: ondansetron HCL 4 MG/2 ML VIAL IVPUSH (09:54)
[2024-11-03] MEDS: Morphine Sulfate 4 MG/ML CARTRIDGE IVPUSH (09:55)
[2024-11-03] MEDS: vancomycin/NS 2,000 MG/500 ML PLAST..BAG 250 MG IV (09:56)
[2024-11-03] MEDS: iohexoL 350 MG/ML 100 ML INFUS..BTL 85 ML IV (10:33)
[2024-11-03] MEDS: 0.9 % Sodium Chloride 2,121 ML 2121 ML IV (11:07)
--- NOTE | 2024-11-03 11:23 | PM.CNGS ---
History of Present Illness Consult details Consult date: 11/03/24 <Pebbles Barrett PA-C - Last Filed: 11/03/24 11:57> Requesting physician: Nhi Albrecht <Pebbles Barrett PA-C - Last Filed: 11/03/24 11:57> Narrative: Emeterio Thompson is a 48 year old male with PMH of diabetes mellitus, gout, HTN who presented to the ED with complaints of right groin and thigh pain. Patient states that about 3-4 days ago he developed some discomfort at his right groin which progressively worsened and the pain became severe. He developed a fever last night at work. He does report spontaneous drainage of the wound overnight which was purulent in nature. Due to the pain and drainage from the wound, he presented to the ED for evaluation. Work up included CBC, BMP, LFTs which was significant for leukocytosis of 19. Glucose 126. Pelvis CT showed diffuse skin thickening and infiltration of the subcutaneous fat of the medial aspect of the right thigh consistent with cellulitis. He denies trauma to the area. He reports he does go fishing frequently so he could have been bitten by something. He has never had this happen before. He is on metformin for his diabetes which is managed by his PCP, he does not check daily POCs. A1c in 10/01 was 6.1. He denies chills, nausea, vomiting, abdominal pain, diarrhea. He feels improved since arrival to the ED. <Pebbles Barrett PA-C - Last Filed: 11/03/24 11:57> Review of Systems Review of Systems: Yes all other systems are reviewed and are negative <BONIFACIO Johnson Last Filed: 11/03/24 11:57> [facility] Past Medical History Medical History: Medical History Obesity (BMI 30-39.9) Type 2 diabetes mellitus with hyperglycemia Hypertension Essential tremor Hypercholesterolemia Anxiety and depression Contracture, left hand Gout <BONIFACIO Johnson Last Filed: 11/03/24 11:57> Family History Family History: Family History Father No problems noted. Mother No problems noted. <Pebbles Barrett PA-C - Last Filed: 11/03/24 11:57> Surgical History Surgical History: Surgical History History of tonsillectomy History of cholecystectomy History of sleeve gastrectomy <Pebbles Barrett PA-C - Last Filed: 11/03/24 11:57> Social History Social History: Social History Household Members: None Housing: Apartment Alcohol intake: current Alcohol intake frequency: a few times a week Alcohol type: beer Patient Tobacco Use Status: Never used Tobacco Tobacco use type: Cigarette Smoked in Last 30 Days: No e-Cigarette/Vaping Use: Never Used Second Hand Smoke Exposure: No Use of substances other than those prescribed or required for medical reasons: No Advance Directives: No Advance Directives Information Provided: No Do you have a plan to hurt others: No Plan service: No Current occupational status: employed Current occupation: [employer] Current occupational exposures/hazards: No Cognitive needs: No Hearing needs: No Vision needs: No <BONIFACIO Johnson Last Filed: 11/03/24 11:57> Meds Allergies/Adverse reactions: Allergies Allergy/AdvReac Type Severity Reaction Status Date / Time latex [LATEX] Allergy Intermediate RASH Verified 11/03/24 05:29 acetaminophen [Tylenol] Allergy Unknown stomach Verified 11/03/24 05:29 upset amoxicillin Allergy Unknown nausea and Verified 11/03/24 05:29 vomiting <BONIFACIO Johnson Last Filed: 11/03/24 11:57> Active Medications: Current Medications Sodium Chloride (Ns) 2,121 mls @ 2,121 mls/hr IV .Q1H STA Stop: 11/03/24 11:59 Last Admin: 11/03/24 11:07 Dose: 2,121 mls/hr <BONIFACIO Johnson Last Filed: 11/03/24 11:57> Home medications: Home Medications ?Medication ?Instructions ?Recorded ?Confirmed ?Last Taken ?Type multivitamin 1 tab PO DAILY 03/27/21 11/03/24 11/01/24 History pyridoxine (vitamin B6) 50 mg 50 mg PO DAILY 11/27/21 11/03/24 11/01/24 History tablet <Pebbles Barrett PA-C Last Filed: 11/03/24 11:57> Physical Exam Vital Signs: Vital Signs: Last Vital Signs Temp 100.0 F 11/03/24 10:59 Pulse 75 11/03/24 10:59 Resp 20 11/03/24 10:59 BP 97/47 L 11/03/24 10:59 Pulse Ox 95 11/03/24 10:59 O2 Del Method Room Air 11/03/24 10:59 BMI result Body Mass Index 37.4 <Pebbles Barrett PA-C Last Filed: 11/03/24 11:57> Const: Other: comfortable lying in bed, appears uncomfortable with movement due to pain <BONIFACIO Johnson Last Filed: 11/03/24 11:57> General: no acute distress and alert <Pebbles Barrett PA-C Last Filed: 11/03/24 11:57> Nutritional Appearance: obese <BONIFACIO Johnson Last Filed: 11/03/24 11:57> Orientation/consciousness: patient oriented x3 <Pebbles Barrett PA-C Last Filed: 11/03/24 11:57> Resp: Effort & Inspection: normal respiratory effort and not labored <Pebbles Barrett PA-C Dank Last Filed: 11/03/24 11:57> Skin: Other: moderate erythema and edema/induration of right posterior groin extending anteriorly and posteriorly as well as inferiorly down right leg; small area of fluctuance underlying small open area with purulent drainage, no necrotic tissue noted, no crepitus, scrotum normal <BONIFACIO Johnson Last Filed: 11/03/24 11:57> Neuro: General: patient oriented x3 and moves all extremities <BONIFACIO Johnson Last Filed: 11/03/24 11:57> Results Labs Result diagrams: 11/03/24 05:42 11/03/24 05:42 <BONIFACIO Johnson Last Filed: 11/03/24 11:57> Labs: Abnormal lab results 11/03/24 Range/Units 05:42 WBC 19.0 H (4.8-10.8) X10*3/uL RBC 3.67 L (4.60-5.80) X10*6/uL Hgb 10.3 L (14.0-18.0) g/dl Hct 32.8 L (42.0-52.0) % Immature Gran % (Auto) 0.7 H (0.0-0.4) % Neut % (Auto) 87.3 H (45-73) % Lymph % (Auto) 4.3 L (20-40) % Lymph # (Auto) 0.8 L (1.2-4.9) X10*3/uL [place] # (Auto) 1.3 H (0.1-1.2) X10*3/uL Abs Immat Gran (auto) 0.13 H (0.00-0.03) X10*3/uL Absolute Neuts (auto) 16.6 H (2.0-8.3) x10*3/uL Random Glucose 126 H (60-115) mg/dL Short CBC 11/03/24 Range/Units 05:42 WBC 19.0 H (4.8-10.8) X10*3/uL Hgb 10.3 L (14.0-18.0) g/dl Hct 32.8 L (42.0-52.0) % Plt Count 211 D (160-400) X10*3/uL BMP 11/03/24 05:42 Sodium 139 Potassium 3.5 Chloride 103 Carbon Dioxide 26 BUN 12 Creatinine 0.87 Calcium 8.9 Liver Function 11/03/24 Range/Units 05:42 Total Bilirubin 0.9 (0.0-1.0) mg/dL AST 26 (5-37) U/L ALT 17 (0-40) U/L Alkaline Phosphatase 99 (39-117) U/L Albumin 3.6 (3.5-5.0) g/dL All other labs normal. <Pebbles Barrett PA-C - Last Filed: 11/03/24 11:57> Imaging CT scan - pelvis: report reviewed and image reviewed <Pebbles Barrett PA-C - Last Filed: 11/03/24 11:57> Assessment and Plan (1) Abscess: Status: Acute <Pebbles Barrett PA-C - Last Filed: 11/03/24 11:57> He has had pain and tenderness on the area of the left buttock towards the groin He has not septic looking CAT scan did not reveal an obvious feel collection but there was note of significant inflammatory process in the subcutaneous fat Examination does not suggest in necrotizing soft tissue infection There was note of a little bit of fluctuance in the areas so I opened it up with a Q-tip There was note of an abscess cavity with large amounts of purulent material that was drained Cultures were taken He tolerated procedure well There were no immediate complications Would recommend IV antibiotic for cellulitic changes Diabetes control We will continue to follow Seen and examined independently <Michael Timmons MD - Last Filed: 11/03/24 12:10> 48 year old male with PMH of diabetes mellitus, gout, HTN who presented with right groin pain and swelling. CT pelvis shows cellulitis of right groin. He has a significant leukocytosis and was febrile. He actually is nontoxic appearing on exam and there is moderate induration and edema of the right groin that extends anteriorly and posteriorly with a small superficial fluctuance that is spontaneously draining with purulent output. The area was prepped with betadine and then opened further and probed with a qtip revealing a small collection consistent with abscess. Culture was obtained and sent, dry dressing placed. Recommended admission to hospitalist service for IV abx, fluid resuscitation, management of diabetes mellitus. Will follow for further wound care, possible further I&D. Patient comfortable with plan. <Pebbles Barrett PA-C - Last Filed: 11/03/24 11:57> Procedures Date of Service Date of Service: 11/03/24 <Pebbles Barrett PA-C - Last Filed: 11/03/24 11:57> 11/03/24 <Michael Timmons MD - Last Filed: 11/03/24 12:10>
--- NOTE | 2024-11-03 11:39 | PHA.MEDREC ---
Addendum entered by Joshua Carlisle PharmD 11/03/24 12:08: reviewed Original Note: Pharmacy Consult ? Medication Reconciliation Pharmacy has completed the medication reconciliation. Spoke to patient to confirm med list. Patient states he is taking Metformin 500 daily and Allopurinol 300 mg, however there are no claims. Patient says he fills all his medications at [facility]. Called [facility] and they confirmed patient has not fill any medications with them since last year and they have no record of Allopurinol 300 mg or Metformin 500 mg. left on med rec because patient states he last took Friday11/01/24
--- NOTE | 2024-11-03 11:59 | PM.IMHP ---
History of Present Illness Date of Service: 11/03/24 <Azucena Jones DNP - Last Filed: 11/03/24 13:14> Chief Complaint: Hospitalist H&P <Azucena Jones DNP - Last Filed: 11/03/24 13:14> 48-year-old male with a past medical history of hypertension, gout, hyperlipidemia, anxiety, documented history of PVD and tremors presented to the ED after a 4 day history of right groin / thigh pain and swelling. Patient reports that over the last 4 days he had worsening of right groin/thigh pain, fevers and tightness in his thigh. He denies any dizziness, lightheadedness, abdominal pain, nausea, vomiting, chills, chest pain, shortness of breath or any other concerning symptoms. Patient reports that his thigh is more painful with movement. Patient was found to have fluid pockets measuring up to 2.5 cm in size, multiple enlarged lymph nodes and evidence of cellulitis. He was noted to have a lactic acid of 1.2, WBC elevated at 19, renal function within normal limits. He was given 2 L IV fluids in the ED, loading dose of vancomycin, dose of Zosyn, Tylenol and morphine. On exam he is in no apparent distress, Alert easy to arouse. He was febrile on admit, given IV Tylenol, temp improved to 98.1. He is saturation is within normal limits on room air. Patient reports a history of gout, he has not had any recent flares last 1 was about a year ago. His diabetes is controlled with metformin. He reports he is not on any medication for hypertension or hyperlipidemia. Controlled with diet and exercise at this time <Azucena Jones DNP - Last Filed: 11/03/24 13:14> Review of Systems Review of Systems: Denies any shortness of breath, chest pain, dizziness, lightheadedness, abdominal pain or discomfort, nausea vomiting or diarrhea. Reports right thigh pain worse with movement <Azucena Jones DNP - Last Filed: 11/03/24 13:14> [facility] Medical History: Medical History Obesity (BMI 30-39.9) Type 2 diabetes mellitus with hyperglycemia Hypertension Essential tremor Hypercholesterolemia Anxiety and depression Contracture, left hand Gout <Azucena Jones DNP - Last Filed: 11/03/24 13:14> Family History: Family History Father No problems noted. Mother No problems noted. <Azucena Jones DNP - Last Filed: 11/03/24 13:14> Surgical History: Surgical History History of tonsillectomy History of cholecystectomy History of sleeve gastrectomy <Azucena Jones DNP - Last Filed: 11/03/24 13:14> Social History: Social History Household Members: None Housing: Apartment Alcohol intake: current Alcohol intake frequency: a few times a week Alcohol type: beer Patient Tobacco Use Status: Never used Tobacco Tobacco use type: Cigarette Smoked in Last 30 Days: No e-Cigarette/Vaping Use: Never Used Second Hand Smoke Exposure: No Use of substances other than those prescribed or required for medical reasons: No Advance Directives: No Advance Directives Information Provided: No Do you have a plan to hurt others: No Plan service: No Current occupational status: employed Current occupation: [employer] Current occupational exposures/hazards: No Cognitive needs: No Hearing needs: No Vision needs: No <Azucena Jones DNP - Last Filed: 11/03/24 13:14> Meds Allergies/Adverse reactions: Allergies Allergy/AdvReac Type Severity Reaction Status Date / Time latex [LATEX] Allergy Intermediate RASH Verified 11/03/24 05:29 acetaminophen [Tylenol] Allergy Unknown stomach Verified 11/03/24 05:29 upset amoxicillin Allergy Unknown nausea and Verified 11/03/24 05:29 vomiting <Azucena Jones DNP - Last Filed: 11/03/24 13:14> Active Medications: Current Medications Sodium Chloride (Ns) 2,121 mls @ 2,121 mls/hr IV .Q1H STA Stop: 11/03/24 11:59 Last Admin: 11/03/24 11:07 Dose: 2,121 mls/hr <Azucena Jones DNP - Last Filed: 11/03/24 13:14> Home medications: Home Medications ?Medication ?Instructions ?Recorded ?Confirmed ?Last Taken ?Type multivitamin 1 tab PO DAILY 03/27/21 11/03/24 11/01/24 History pyridoxine (vitamin B6) 50 mg 50 mg PO DAILY 11/27/21 11/03/24 11/01/24 History tablet <Azucena Jones DNP - Last Filed: 11/03/24 13:14> Physical Exam Vital Signs and Narrative: Vital Signs: Last Vital Signs Temp 100.0 F 11/03/24 10:59 Pulse 75 11/03/24 10:59 Resp 20 11/03/24 10:59 BP 97/47 L 11/03/24 10:59 Pulse Ox 95 11/03/24 10:59 O2 Del Method Room Air 11/03/24 10:59 BMI result Body Mass Index 37.4 <Azucena Jones DNP - Last Filed: 11/03/24 13:14> Alert and oriented X3, able to give good history. Neuro: CN II-X11 intact, no deficits, visual acuity intact EYES: PERRLA, EOM intact ENT: hearing intact, uvula midline, lips moist Cardiac: S1 S2 RRR, no edema in Lower ext Pulmonary: lungs clear to auscultation, No increased WOB. Abdominal: BS active in all 4 quadrants, no guarding, tenderness, rebounding, + obesity MSK: Strength 5/5 upper and lower extremities : no SP tenderness. Extremities: no edema in lower extremities, PT and DP pulses palpable +2 Psych: mood stable, judgement and insight good Skin: Warm and dry, Intact. + erythema to right anterior, medial and posterior thigh. + serosang drainage from posterior thigh <Azucena Jones DNP - Last Filed: 11/03/24 13:14> Results Labs CBC and Chem 7: 11/03/24 05:42 11/03/24 05:42 <Azucena Jones DNP - Last Filed: 11/03/24 13:14> Labs: Laboratory Results - last 24 hr 11/03/24 11/03/24 05:42 08:44 MCV 89.4 MCH 28.1 MCHC 31.4 RDW 14.6 Plt Count 211 D MPV 9.5 Immature Gran % (Auto) 0.7 H Neut % (Auto) 87.3 H Lymph % (Auto) 4.3 L [place] % (Auto) 6.8 Eos % (Auto) 0.6 Baso % (Auto) 0.3 Lymph # (Auto) 0.8 L [place] # (Auto) 1.3 H Eos # (Auto) 0.1 Baso # (Auto) 0.1 Abs Immat Gran (auto) 0.13 H Absolute Neuts (auto) 16.6 H Absolute Nucleated RBC 0.000 Nucleated RBC % (auto) 0.0 Anion Gap 14 Estim Creat Clear Calc 131.1 Estimated GFR > 60 Random Glucose 126 H Lactic Acid 1.2 Calcium 8.9 Total Bilirubin 0.9 AST 26 ALT 17 Alkaline Phosphatase 99 Total Protein 6.7 Albumin 3.6 <Azucena Jones DNP - Last Filed: 11/03/24 13:14> Imaging Radiologist's Impressions: Impressions Pelvis CT 11/03/24 09:19 IMPRESSION: 1. Findings consistent with cellulitis involving the medial aspect of the right thigh. Small fluid pockets are noted measuring up to 2.5 cm in size. 2. Pelvic lymphadenopathy as described. Electronically signed by: Jason Woods MD 11/03/2024 10:54 AM EDT RP <Azucena Jones DNP - Last Filed: 11/03/24 13:14> Assessment and Plan (1) Abscess and cellulitis of gluteal region: Status: Acute <Azucena Jones DNP - Last Filed: 11/03/24 13:14> (2) Sepsis: Status: Acute <Azucena Jones DNP - Last Filed: 11/03/24 13:14> Cellulitis/abscess right posterior thigh Seen by surgery, no surgical intervention at this time. Patient will be re-evaluated in followed by surgery in the a.m. Area is actively draining Culture pending, continue IV vancomycin and Zosyn. WBC 19.0 lactic acid 1.2. Did not meet sepsis criteria Pain management with Tylenol, and oxycodone as needed. Blood cultures drawn, wound culture pending Type 2 diabetes Restart metformin 48 hours after contrast Consistent carb Blood glucose checks q.i.d., lispro sliding scale for blood glucose control We will check hemoglobin A1c Gout Continue allopurinol. Patient is a full code DVT prophylaxis with Lovenox <Azucena Jones DNP - Last Filed: 11/03/24 13:14> Sepsis 2/2 Cellulitis/abscess right posterior thigh has Leukocytosis, tachypnea and fever Seen by surgery, no surgical intervention at this time. Patient will be re-evaluated in followed by surgery in the a.m. Area is actively draining Cultures pending continue IV vancomycin and Zosyn. Pain management with Tylenol, and oxycodone as needed. Blood cultures drawn, wound culture pending follow Vancomycin trough Type 2 diabetes Restart metformin 48 hours after contrast Consistent carb Blood glucose checks q.i.d., lispro sliding scale for blood glucose control We will check hemoglobin A1c Gout Continue allopurinol. Patient is a full code DVT prophylaxis with Lovenox <Hazel Sanchez MD - Last Filed: 11/03/24 14:54> Quality Stroke Does the patient have a stroke diagnosis?: No <Azcuena Jones DNP - Last Filed: 11/03/24 13:14> VTE Prior VTE?: No <Azucena Jones DNP - Last Filed: 11/03/24 13:14> VTE Risk Level:: Medical - moderate - high <Azucena Jones DNP - Last Filed: 11/03/24 13:14> VTE Device Contraindication: Treatment Not Indicated <Azucena Jones DNP - Last Filed: 11/03/24 13:14> VTE Drug Contraindication: N/A - Med Ordered <Azucena Jones DNP - Last Filed: 11/03/24 13:14>
--- NOTE | 2024-11-03 12:46 | PHA.PROG ---
Admission Date/Time: November 03, 2024 11:22 Indication: Sepsis Weight in k.759 kg Serum Creatinine - Last 168 Hours 11/03/24 05:42 Creatinine 0.87 Estimated CrCl and GFR - Last 168 Hours 11/03/24 05:42 Estim Creat Clear Calc 131.1 Estimated GFR > 60 Vancomycin Loading Dose: 2,000mg Current Vancomycin Dosing Regimen: 1500mg q12h Vancomycin Monitoring using AUC goal of 400 - 600 range with trough as surrogate marker: 550, predicted trough 17.4 Date and Time for next Vancomycin Level to be drawn: 11/04 Pharmacist Comments on Vancomycin Plan: Vancomycin dosing will take advantage of [employer] as a clinical decision support tool that uses Bayesian modeling to calculate individual patient's pharmacokinetic parameters and forecast the patient's drug concentration time course with the target goal AUC 24 range of 400 - 600 mg/L/hr.
[2024-11-03] MEDS: 0.9 % Sodium Chloride 250 ML 999 ML IV (13:25)
[2024-11-03 13:42] LABS: Estimated Average Glucose 114 mg/dL; Hemoglobin A1C 92.6159 umol/L; Hemoglobin A1c % 5.6 % (<6.0); Total Hemoglobin (HGBA1C) 2475.7317 umol/L
[2024-11-03] MEDS: Enoxaparin Sodium 40 MG/0.4 ML SYRINGE SUBCUT (13:49)
[2024-11-03] MEDS: oxyCODONE HCl Immed Release 5 MG TABLET PO (14:00)
[2024-11-03 17:48] LABS: Glucose, Whole Blood 69 mg/dL (60-115)
[2024-11-03 17:48] LABS: Glucose, Whole Blood 109 mg/dL (60-115)
[2024-11-03] MEDS: Ibuprofen 600 MG TABLET PO (19:57)
--- NOTE | 2024-11-03 20:02 | PC.NURSE ---
pt was in the bathroom, abscess starting to drain/bleed down his leg, assist with washing and walked back to bed. dressing placed. pt medicated per AUG for pain. provided aware
[2024-11-03 22:15] LABS: Glucose, Whole Blood 82 mg/dL (60-115)
[2024-11-03] MEDS: vancomycin HCL 1,500 MG in 0.9 % Sodium Chloride 500 ML 333.33 MG IV (22:49)
[2024-11-04] MEDS: Piperacillin Sodium/Tazobactam 3.375 GM in 0.9 % Sodium Chloride 50 ML IV ×4 (02:46→21:39)
[2024-11-04 02:54] VITALS: BP 106/53; PULSE 62; RESP 16; TEMP 36.8; O2SAT 99
[2024-11-04] MEDS: oxyCODONE HCl Immed Release 5 MG TABLET PO ×4 (03:30→21:43)
--- NOTE | 2024-11-04 04:06 | PC.NURSE ---
pt standing at bedside with urinal, abscess draining when standing, assist with washing, floor cleaned, bed and gown changed, wound redressed for drainage, pt medicated per MAR for pain, assist back into bed
--- NOTE | 2024-11-04 04:09 | PC.NURSE ---
pt present to ED with R thigh/gluteual fold pain/abscess x4days. CT pelvis: R medial thigh cellulitis with small fluid pockets measuring up to 2.5 cm. abscess is draining at this time. pt A/O x4, calm and cooperative with care, ambulates independently but slowly d/t pain. bilateral wrist IVs. ADMIT: Abscess and cellulitis of gluteal region. wound cultures sent. Seen by surgery, no surgical intervention at this time. Patient will be re-evaluated in followed by surgery in the a.m.
[2024-11-04 05:45] LABS: MANUAL DIFF FLAG NO
[2024-11-04 05:50] LABS: Basophils Percent Auto 0.3 % (0-2); Eosinophils Absolute Auto 0.2 X10*3/uL (0.0-0.4); Eosinophils Percent Auto 1.2 % (0-4); Hemoglobin 10.1 g/dl (14.0-18.0); Imm Gran Abs Auto 0.09 X10*3/uL (0.00-0.03); Imm Gran Pct Auto 0.7 % (0.0-0.4); Lymphocytes Absolute Auto 1.2 X10*3/uL (1.2-4.9); Lymphocytes Percent Auto 9.5 % (20-40); Mean Corpuscular HGB Conc 31.6 g/dl (31.0-36.0); Mean Corpuscular Hemoglobin 28.6 pg (27.0-33.0); Mean Corpuscular Volume 90.7 fL (80.0-98.0); Mean Platelet Volume 10.4 fL (9.4-12.4); Monocytes Absolute Auto 0.9 X10*3/uL (0.1-1.2); Monocytes Percent Auto 6.8 % (2-11); Neutrophils Absolute Auto 10.7 x10*3/uL (2.0-8.3); Neutrophils Percent Auto 81.5 % (45-73); Platelet Count 213 X10*3/uL (160-400); Red Blood Count 3.53 X10*6/uL (4.60-5.80); Red Cell Distribution Width 14.9 % (11.0-16.0); White Blood Count 13.1 X10*3/uL (4.8-10.8)
[2024-11-04 06:03] LABS: Anion Gap 16 (12-20); Aspartate Amino Transferase 18 U/L (5-37); Bilirubin Total 0.8 mg/dL (0.0-1.0); Blood Urea Nitrogen 8 mg/dL (9-16); Calcium 8.7 mg/dL (8.4-10.2); Carbon Dioxide 25 mmol/L (22-29); Chloride 107 mmol/L (96-108); Creatinine Clr Calc Pharmacy 156.2; Estimated Glomerular Filt Rate > 60; Glucose Random 76 mg/dL (60-115); Potassium 3.2 mmol/L (3.3-5.1); Sodium 145 mmol/L (135-145)
[2024-11-04 06:04] LABS: Alanine Aminotransferase 13 U/L (0-40); Albumin Level 3.1 g/dL (3.5-5.0); Alkaline Phosphatase 126 U/L (39-117); Total Protein 6.1 g/dL (6.5-8.0)
[2024-11-04 06:20] VITALS: BP 141/67; PULSE 59; RESP 16; TEMP 36.5; O2SAT 97
[2024-11-04 06:45] VITALS: BMI 38.7
[2024-11-04 07:32] VITALS: BP 106/65; PULSE 64; RESP 18; TEMP 36.8; O2SAT 95
[2024-11-04 07:41] LABS: Glucose, Whole Blood 93 mg/dL (60-115)
[2024-11-04] MEDS: Pyridoxine HCl (Vitamin B6) 50 MG TABLET PO (07:59)
[2024-11-04] MEDS: Multivitamin TABLET 1 TAB PO (07:59)
[2024-11-04] MEDS: allopurinoL 300 MG TABLET 600 MG PO (07:59)
[2024-11-04] MEDS: Potassium Chloride Packet 20 MEQ PACKET 40 MEQ PO ×2 (08:00→09:31)
[2024-11-04] MEDS: Cholecalciferol (Vitamin D3) 25 MCG TABLET PO (08:00)
[2024-11-04] MEDS: 0.9 % Sodium Chloride Flush 3 ML SYRINGE IVFLUSH ×3 (08:03→21:46)
--- NOTE | 2024-11-04 08:54 | P.PNGS_ITS ---
Subjective Subjective Date of Service: 11/04/24 Interval history: He has pain on the right buttock area but better No fever overnight No events reported Physical Exam 2 Vital Signs: Vital Signs: Last Vital Signs Temp 98.3 F 11/04/24 07:32 Pulse 64 11/04/24 07:32 Resp 18 11/04/24 07:32 BP 106/65 11/04/24 07:32 Pulse Ox 95 11/04/24 07:32 O2 Del Method Room Air 11/04/24 07:32 BMI result Body Mass Index 38.7 Const: General: comfortable and no acute distress Resp: Effort & Inspection: normal respiratory effort Cardio: Rate: regular rate GI: Palpation (GI): Soft to palpation Back/Spine/Pelvis: Other: Right buttock near the anus with note of an open draining wound, mild residual induration but no fluctuance, no signs of necrotizing process Objective Data Active Medications Acetaminophen (Acetaminophen 325 Mg Tablet) 650 mg PO Q6H PRN PRN Reason: Pain, Mild 1-3,fever,headache Allopurinol (Allopurinol 300 Mg Tablet) 600 mg PO DAILY [facility] Last Admin: 11/04/24 07:59 Dose: 600 mg Documented By: ELIANA Calcium Carbonate (Calcium Carbonate 750 Mg Tab.Chew) 750 mg PO Q4H PRN PRN Reason: Heartburn Enoxaparin Sodium (Enoxaparin Sodium 40 Mg/0.4 Ml Syringe) 40 mg SUBCUT Q24H [facility] Last Admin: 11/03/24 13:49 Dose: 40 mg Documented By: CALOS Vancomycin HCl 1,500 mg/ (Sodium Chloride) 500 mls @ 333.333 mls/hr IV Q12H [facility] Last Infusion: 11/04/24 00:27 Dose: Infused Documented By: TALIA Piperacillin Sod/Tazobactam (Sod 3.375 gm/ Sodium Chloride) 50 mls @ 100 mls/hr IV Q6H [facility] Last Admin: 11/04/24 08:29 Dose: 100 mls/hr Documented By: ELIANA Insulin Human Lispro (Insulin Lispro 100 Unit/Ml 3 Ml Vial) 0 unit SUBCUT TIDAC PRN; Protocol PRN Reason: hyperglycemia Magnesium Hydroxide (Milk Of Magnesia 30 Ml Oral.Susp) 30 ml PO DAILY PRN PRN Reason: Constipation Melatonin (Melatonin 3 Mg Tablet) 6 mg PO BEDTIME PRN PRN Reason: Insomnia Metformin HCl (Metformin Hcl 500 Mg Tablet) 500 mg PO DAILY [facility] Multivitamins/Vitamin C (Multivitamin Tablet) 1 tab PO DAILY [facility] Last Admin: 11/04/24 07:59 Dose: 1 tab Documented By: ELIANA Ondansetron HCl (Ondansetron Hcl 4 Mg/2 Ml Vial) 4 mg IVPUSH Q8H PRN PRN Reason: Nausea and Vomiting Oxycodone HCl (Oxycodone Hcl Immed Release 5 Mg Tablet) 5 mg PO Q6H PRN PRN Reason: Pain, Severe (Pain Scale 7-10) Last Admin: 11/04/24 03:30 Dose: 5 mg Documented By: TALIA Pharmacy Consult (Consult Rx Vancomycin Dosing) 1 each MISCELLANE DAILY PRN PRN Reason: Consult order Polyethylene Glycol (Polyethylene Glycol 3350 17 Gm Powd.Pack) 17 gm PO DAILY PRN PRN Reason: Constipation Potassium Chloride (Potassium Chloride Packet 20 Meq Packet) 40 meq PO Q2H [facility] Stop: 11/04/24 09:31 Last Admin: 11/04/24 08:00 Dose: 40 meq Documented By: ELIANA Pyridoxine HCl (Pyridoxine Hcl (Vitamin B6) 50 Mg Tablet) 50 mg PO DAILY [facility] Last Admin: 11/04/24 07:59 Dose: 50 mg Documented By: ELIANA Sodium Chloride (0.9 % Sodium Chloride Flush 3 Ml Syringe) 3 ml IVFLUSH QSHIFT [facility] Last Admin: 11/04/24 08:03 Dose: 3 ml Documented By: ELIANA Vitamin D (Cholecalciferol (Vitamin D3) 25 Mcg Tablet) 25 mcg PO DAILY [facility] Last Admin: 11/04/24 08:00 Dose: 25 mcg Documented By: ELIANA Labs 11/04/24 03:44 11/04/24 03:44 Labs: Laboratory Results - last 24 hr 11/03/24 11/03/24 11/03/24 08:44 13:21 17:05 MCV MCH MCHC RDW Plt Count MPV Immature Gran % (Auto) Neut % (Auto) Lymph % (Auto) [place] % (Auto) Eos % (Auto) Baso % (Auto) Lymph # (Auto) [place] # (Auto) Eos # (Auto) Baso # (Auto) Abs Immat Gran (auto) Absolute Neuts (auto) Absolute Nucleated RBC Nucleated RBC % (auto) Anion Gap Estim Creat Clear Calc Estimated GFR POC Glucose 69 Random Glucose Estimat Average Glucose 114 Hemoglobin A1c % 5.6 Lactic Acid 1.2 Calcium Total Bilirubin AST ALT Alkaline Phosphatase Total Protein Albumin 11/03/24 11/03/24 11/04/24 17:44 22:08 03:44 MCV 90.7 MCH 28.6 MCHC 31.6 RDW 14.9 Plt Count 213 MPV 10.4 Immature Gran % (Auto) 0.7 H Neut % (Auto) 81.5 H Lymph % (Auto) 9.5 L [place] % (Auto) 6.8 Eos % (Auto) 1.2 Baso % (Auto) 0.3 Lymph # (Auto) 1.2 [place] # (Auto) 0.9 Eos # (Auto) 0.2 Baso # (Auto) 0.0 Abs Immat Gran (auto) 0.09 H Absolute Neuts (auto) 10.7 H Absolute Nucleated RBC 0.000 Nucleated RBC % (auto) 0.0 Anion Gap 16 Estim Creat Clear Calc 156.2 Estimated GFR > 60 POC Glucose 109 82 Random Glucose 76 Estimat Average Glucose Hemoglobin A1c % Lactic Acid Calcium 8.7 Total Bilirubin 0.8 AST 18 ALT 13 Alkaline Phosphatase 126 H Total Protein 6.1 L Albumin 3.1 L 11/04/24 07:31 MCV MCH MCHC RDW Plt Count MPV Immature Gran % (Auto) Neut % (Auto) Lymph % (Auto) [place] % (Auto) Eos % (Auto) Baso % (Auto) Lymph # (Auto) [place] # (Auto) Eos # (Auto) Baso # (Auto) Abs Immat Gran (auto) Absolute Neuts (auto) Absolute Nucleated RBC Nucleated RBC % (auto) Anion Gap Estim Creat Clear Calc Estimated GFR POC Glucose 93 Random Glucose Estimat Average Glucose Hemoglobin A1c % Lactic Acid Calcium Total Bilirubin AST ALT Alkaline Phosphatase Total Protein Albumin Microbiology Microbiology Results: Microbiology 11/03/24 12:28 Gram Stain - Final Groin Procedures Date of Service Date of Service: 11/04/24 Progress Note: A&P Assessment and plan (1) Abscess and cellulitis of gluteal region: Status: Acute Assessment and Plan: Abscess cavity opened up yesterday with a Q-tip Has been draining No residual fluctuance No fever WBC much improved Wound care IV antibiotics I explained to the patient to massage the areas surrounding the open wound to promote further drainage We will continue to follow up Time Spent With Patient Time: Total time managing care of this patient today ____ minutes. Quality Stroke Does the patient have a stroke diagnosis?: No VTE Prior VTE?: No VTE Risk Level:: Medical - moderate - high VTE Device Contraindication: Treatment Not Indicated VTE Drug Contraindication: N/A - Med Ordered
[2024-11-04] MEDS: Acetaminophen 325 MG TABLET 650 MG PO ×2 (09:30→15:41)
[2024-11-04] MEDS: vancomycin HCL 1,500 MG in 0.9 % Sodium Chloride 500 ML 333.33 MG IV (09:31)
[2024-11-04 11:21] LABS: Glucose, Whole Blood 150 mg/dL (60-115)
--- NOTE | 2024-11-04 14:25 | HO.PM.IMPN ---
Subjective Subjective Date of Service: 11/04/24 Interval History: seen and evaluated feels better wound draining growing Staph A in wound no other events Review of Systems Review of Systems: Yes all other systems are reviewed and are negative Physical Exam Vital Signs: Vital Signs: Last Vital Signs Temp 98.3 F 11/04/24 07:32 Pulse 64 11/04/24 07:32 Resp 18 11/04/24 07:32 BP 106/65 11/04/24 07:32 Pulse Ox 95 11/04/24 07:32 O2 Del Method Room Air 11/04/24 07:32 BMI result Body Mass Index 38.7 Const: Other: Constitutional : interactive, not in distress Cardiovascular : no JVP, no lower extremity edema Respiratory : bilateral chest movement, not in resp distress Gastrointestinal: soft, lax, Non tender Skin : Warm, Dry, large open abscess in right thigh with drainage, decreasing erythema and warmth Neurological : Alert & oriented , No focal deficit Objective Data Active Medications Acetaminophen (Acetaminophen 325 Mg Tablet) 650 mg PO Q6H PRN PRN Reason: Pain, Mild 1-3,fever,headache Last Admin: 11/04/24 09:30 Dose: 650 mg Documented By: ELIANA Allopurinol (Allopurinol 300 Mg Tablet) 600 mg PO DAILY [facility] Last Admin: 11/04/24 07:59 Dose: 600 mg Documented By: ELIANA Calcium Carbonate (Calcium Carbonate 750 Mg Tab.Chew) 750 mg PO Q4H PRN PRN Reason: Heartburn Enoxaparin Sodium (Enoxaparin Sodium 40 Mg/0.4 Ml Syringe) 40 mg SUBCUT Q24H [facility] Last Admin: 11/03/24 13:49 Dose: 40 mg Documented By: CALOS Vancomycin HCl 1,500 mg/ (Sodium Chloride) 500 mls @ 333.333 mls/hr IV Q12H [facility] Last Infusion: 11/04/24 11:35 Dose: Infused Documented By: ELIANA Piperacillin Sod/Tazobactam (Sod 3.375 gm/ Sodium Chloride) 50 mls @ 100 mls/hr IV Q6H [facility] Last Infusion: 11/04/24 09:00 Dose: Infused Documented By: ELIANA Insulin Human Lispro (Insulin Lispro 100 Unit/Ml 3 Ml Vial) 0 unit SUBCUT TIDAC PRN; Protocol PRN Reason: hyperglycemia Magnesium Hydroxide (Milk Of Magnesia 30 Ml Oral.Susp) 30 ml PO DAILY PRN PRN Reason: Constipation Melatonin (Melatonin 3 Mg Tablet) 6 mg PO BEDTIME PRN PRN Reason: Insomnia Metformin HCl (Metformin Hcl 500 Mg Tablet) 500 mg PO DAILY [facility] Multivitamins/Vitamin C (Multivitamin Tablet) 1 tab PO DAILY [facility] Last Admin: 11/04/24 07:59 Dose: 1 tab Documented By: ELIANA Ondansetron HCl (Ondansetron Hcl 4 Mg/2 Ml Vial) 4 mg IVPUSH Q8H PRN PRN Reason: Nausea and Vomiting Oxycodone HCl (Oxycodone Hcl Immed Release 5 Mg Tablet) 5 mg PO Q6H PRN PRN Reason: Pain, Severe (Pain Scale 7-10) Last Admin: 11/04/24 09:31 Dose: 5 mg Documented By: ELIANA Pharmacy Consult (Consult Rx Vancomycin Dosing) 1 each MISCELLANE DAILY PRN PRN Reason: Consult order Polyethylene Glycol (Polyethylene Glycol 3350 17 Gm Powd.Pack) 17 gm PO DAILY PRN PRN Reason: Constipation Pyridoxine HCl (Pyridoxine Hcl (Vitamin B6) 50 Mg Tablet) 50 mg PO DAILY [facility] Last Admin: 11/04/24 07:59 Dose: 50 mg Documented By: ELIANA Sodium Chloride (0.9 % Sodium Chloride Flush 3 Ml Syringe) 3 ml IVFLUSH QSHIFT [facility] Last Admin: 11/04/24 08:03 Dose: 3 ml Documented By: ELIANA Vitamin D (Cholecalciferol (Vitamin D3) 25 Mcg Tablet) 25 mcg PO DAILY [facility] Last Admin: 11/04/24 08:00 Dose: 25 mcg Documented By: ELIANA Labs 11/04/24 03:44 11/04/24 03:44 Labs: Laboratory Results - last 24 hr 11/03/24 11/03/24 11/03/24 17:05 17:44 22:08 MCV MCH MCHC RDW Plt Count MPV Immature Gran % (Auto) Neut % (Auto) Lymph % (Auto) [place] % (Auto) Eos % (Auto) Baso % (Auto) Lymph # (Auto) [place] # (Auto) Eos # (Auto) Baso # (Auto) Abs Immat Gran (auto) Absolute Neuts (auto) Absolute Nucleated RBC Nucleated RBC % (auto) Anion Gap Estim Creat Clear Calc Estimated GFR POC Glucose 69 109 82 Random Glucose Calcium Total Bilirubin AST ALT Alkaline Phosphatase Total Protein Albumin 11/04/24 11/04/24 11/04/24 03:44 07:31 11:14 MCV 90.7 MCH 28.6 MCHC 31.6 RDW 14.9 Plt Count 213 MPV 10.4 Immature Gran % (Auto) 0.7 H Neut % (Auto) 81.5 H Lymph % (Auto) 9.5 L [place] % (Auto) 6.8 Eos % (Auto) 1.2 Baso % (Auto) 0.3 Lymph # (Auto) 1.2 [place] # (Auto) 0.9 Eos # (Auto) 0.2 Baso # (Auto) 0.0 Abs Immat Gran (auto) 0.09 H Absolute Neuts (auto) 10.7 H Absolute Nucleated RBC 0.000 Nucleated RBC % (auto) 0.0 Anion Gap 16 Estim Creat Clear Calc 156.2 Estimated GFR > 60 POC Glucose 93 150 H Random Glucose 76 Calcium 8.7 Total Bilirubin 0.8 AST 18 ALT 13 Alkaline Phosphatase 126 H Total Protein 6.1 L Albumin 3.1 L Microbiology Microbiology Results: Microbiology 11/03/24 08:44 Blood Culture - Preliminary Blood - Venous No growth after 24 hours. 11/03/24 08:44 Blood Culture - Preliminary Blood - Venous No growth after 24 hours. 11/03/24 12:28 Gram Stain - Final Groin Routine Culture - Preliminary Staphylococcus aureus Assessment and Plan (1) Sepsis: Status: Acute (2) Abscess and cellulitis of gluteal region: Status: Acute (3) Cellulitis: Status: Acute Plan 48-year-old male with a past medical history of hypertension, gout, hyperlipidemia, anxiety, documented history of PVD and tremors presented to the ED after a 4 day history of right groin / thigh pain and swelling. Sepsis 2/2 Cellulitis/abscess right posterior thigh sepsis resolved Seen by surgery, continue medical management and massaging the area actively draining Cultures pending, wound cx growing Staph A continue IV vancomycin and Zosyn. Pain management with Tylenol, and oxycodone as needed. Blood cultures drawn, wound culture pending follow Vancomycin trough Type 2 diabetes Restart metformin 48 hours after contrast Consistent carb Blood glucose checks q.i.d., lispro sliding scale for blood glucose control We will check hemoglobin A1c Gout Continue allopurinol. Patient is a full code DVT prophylaxis with Lovenox Quality Stroke Does the patient have a stroke diagnosis?: No VTE Prior VTE?: No VTE Risk Level:: Medical - moderate - high VTE Device Contraindication: Treatment Not Indicated VTE Drug Contraindication: N/A - Med Ordered
[2024-11-04] MEDS: Enoxaparin Sodium 40 MG/0.4 ML SYRINGE SUBCUT (14:26)
[2024-11-04 15:10] VITALS: BP 118/68; PULSE 77; RESP 18; TEMP 36.7; O2SAT 98
--- NOTE | 2024-11-04 15:19 | MHC.CM.PN ---
Patient lives in an apartment alone. Functionally independent. 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 PCP Randa Shanks MD Reports he has an HCP naming his mother, Wanda, as HCA. Copy requested. DP: Wound to right posterior thigh. Patient is not homebound, unable to get VNA services. States his girlfriend will assist w/ wound care. Will need assist w/ transport on dc - shuttle vs lyft. CM will continue to follow.
[2024-11-04 16:07] LABS: Glucose, Whole Blood 92 mg/dL (60-115)
[2024-11-04 19:47] VITALS: BP 113/68; PULSE 84; RESP 18; TEMP 37.1; O2SAT 99
[2024-11-04 20:27] LABS: Vancomycin Trough 20.8 mcg/mL (10.0-20.0)
[2024-11-04 20:31] LABS: Glucose, Whole Blood 118 mg/dL (60-115)
--- NOTE | 2024-11-04 20:52 | HE.PHANOTE ---
re f [facility] Patients level came back tonight at 20.8. Level is supratherapeutic, patients indication was sepsis. Will decrease dose to 1250 mg Q12H from 1500 mg Q12H. Pushing back dosing as well to allow level to come down. Because of the late dosing the dose push off will push the dose to 0400 making getting a level difficult as pharmacy is closed this early in the morning. Choosing to get a level after 1 dose to ensure safety vs efficacy otherwise the level would have to be after 3 doses and patient renal is unstable. Predicted AUC 597, next level 11/05 @1400
[2024-11-05] VITALS (12 sets, daily range): BP systolic 108–129; BP diastolic 57–86; PULSE 68–83; RESP 12–20; TEMP 36.4–37; O2SAT 96–100
--- NOTE | 2024-11-05 02:58 | PC.NURSE ---
per dr Mckeon to recheck [facility] level at 0300 before 4 am dose
[2024-11-05] MEDS: Piperacillin Sodium/Tazobactam 3.375 GM in 0.9 % Sodium Chloride 50 ML IV ×2 (03:18→08:24)
[2024-11-05] MEDS: vancomycin HCL 1,250 MG in 0.9 % Sodium Chloride 250 ML 166.67 MG IV (04:03)
[2024-11-05] MEDS: oxyCODONE HCl Immed Release 5 MG TABLET PO ×3 (04:03→16:32)
[2024-11-05 06:49] LABS: MANUAL DIFF FLAG NO
[2024-11-05 06:58] LABS: Basophils Absolute Auto 0.1 X10*3/uL (0.0-0.2); Basophils Percent Auto 0.4 % (0-2); Eosinophils Absolute Auto 0.2 X10*3/uL (0.0-0.4); Eosinophils Percent Auto 1.2 % (0-4); Hematocrit 30.6 % (42.0-52.0); Hemoglobin 9.7 g/dl (14.0-18.0); Imm Gran Abs Auto 0.08 X10*3/uL (0.00-0.03); Imm Gran Pct Auto 0.6 % (0.0-0.4); Lymphocytes Absolute Auto 0.8 X10*3/uL (1.2-4.9); Lymphocytes Percent Auto 6.2 % (20-40); Mean Corpuscular HGB Conc 31.7 g/dl (31.0-36.0); Mean Corpuscular Volume 88.4 fL (80.0-98.0); Mean Platelet Volume 10.1 fL (9.4-12.4); Monocytes Percent Auto 7.6 % (2-11); Neutrophils Absolute Auto 10.8 x10*3/uL (2.0-8.3); Platelet Count 230 X10*3/uL (160-400); Red Blood Count 3.46 X10*6/uL (4.60-5.80); White Blood Count 12.9 X10*3/uL (4.8-10.8)
[2024-11-05 07:27] LABS: Glucose, Whole Blood 98 mg/dL (60-115)
[2024-11-05] MEDS: allopurinoL 300 MG TABLET 600 MG PO (08:20)
[2024-11-05] MEDS: Multivitamin TABLET 1 TAB PO (08:20)
[2024-11-05] MEDS: Pyridoxine HCl (Vitamin B6) 50 MG TABLET PO (08:20)
[2024-11-05] MEDS: metFORMIN HCl 500 MG TABLET PO (08:20)
[2024-11-05] MEDS: Cholecalciferol (Vitamin D3) 25 MCG TABLET PO (08:20)
[2024-11-05] MEDS: 0.9 % Sodium Chloride Flush 3 ML SYRINGE IVFLUSH ×2 (08:29→17:21)
[2024-11-05 08:57] LABS: Anion Gap 9 (12-20); Blood Urea Nitrogen 22 mg/dL (9-16); Calcium 8.7 mg/dL (8.4-10.2); Carbon Dioxide 26 mmol/L (22-29); Chloride 109 mmol/L (96-108); Creatinine Clr Calc Pharmacy 38.8; Estimated Glomerular Filt Rate 23; Glucose Random 98 mg/dL (60-115); Potassium 4.2 mmol/L (3.3-5.1); Sodium 140 mmol/L (135-145)
--- NOTE | 2024-11-05 09:04 | PM.PNGS ---
Subjective Subjective Date of Service: 11/05/24 <Pebbles Barrett PA-C - Last Filed: 11/05/24 09:52> 11/06/24 <Michael Timmons MD - Last Filed: 11/06/24 10:20> Interval history: Feels better overall, pain improved. Well managed with oral oxycodone. Abscess site continued with large amount of drainage yesterday and requiring frequent dressing changes. <Pebbles Barrett PA-C - Last Filed: 11/05/24 09:52> Physical Exam Vital Signs: Vital Signs: Last Vital Signs Temp 98.5 F 11/05/24 07:13 Pulse 75 11/05/24 07:13 Resp 18 11/05/24 07:13 BP 112/67 11/05/24 07:13 Pulse Ox 96 11/05/24 07:13 O2 Del Method Room Air 11/05/24 07:13 BMI result Body Mass Index 38.7 <Pebbles Barrett PA-C - Last Filed: 11/05/24 09:52> Const: General: comfortable, no acute distress and alert <Pebbles Barrett PA-C - Last Filed: 11/05/24 09:52> Orientation/consciousness: patient oriented x3 <BONIFACIO Johnson Last Filed: 11/05/24 09:52> Resp: Effort & Inspection: normal respiratory effort <Pebbles Barrett PA-C - Last Filed: 11/05/24 09:52> Skin: Other: right medial posterior thigh at gluteal area abscess cavity open and draining thin purulence, no further fluctuant collection palpated, moderate surrounding induration with persistent erythema and edema extending inferiorly down leg <Pebbles Barrett PA-C - Last Filed: 11/05/24 09:52> Neuro: General: patient oriented x3 and moves all extremities <BONIFACIO Johnson Last Filed: 11/05/24 09:52> Objective Data Active Medications Acetaminophen (Acetaminophen 325 Mg Tablet) 650 mg PO Q6H PRN PRN Reason: Pain, Mild 1-3,fever,headache Last Admin: 11/04/24 15:41 Dose: 650 mg Documented By: ELIANA Allopurinol (Allopurinol 300 Mg Tablet) 600 mg PO DAILY [facility] Last Admin: 11/05/24 08:20 Dose: 600 mg Documented By: HARSHIL Calcium Carbonate (Calcium Carbonate 750 Mg Tab.Chew) 750 mg PO Q4H PRN PRN Reason: Heartburn Enoxaparin Sodium (Enoxaparin Sodium 40 Mg/0.4 Ml Syringe) 40 mg SUBCUT Q24H [facility] Last Admin: 11/04/24 14:26 Dose: 40 mg Documented By: ELIANA Piperacillin Sod/Tazobactam (Sod 3.375 gm/ Sodium Chloride) 50 mls @ 100 mls/hr IV Q6H [facility] Last Admin: 11/05/24 08:24 Dose: 100 mls/hr Documented By: HARSHIL Vancomycin HCl 1,250 mg/ (Sodium Chloride) 250 mls @ 166.667 mls/hr IV Q12H [facility] Last Infusion: 11/05/24 05:57 Dose: Infused Documented By: CASTILLO Insulin Human Lispro (Insulin Lispro 100 Unit/Ml 3 Ml Vial) 0 unit SUBCUT TIDAC PRN; Protocol PRN Reason: hyperglycemia Magnesium Hydroxide (Milk Of Magnesia 30 Ml Oral.Susp) 30 ml PO DAILY PRN PRN Reason: Constipation Melatonin (Melatonin 3 Mg Tablet) 6 mg PO BEDTIME PRN PRN Reason: Insomnia Metformin HCl (Metformin Hcl 500 Mg Tablet) 500 mg PO DAILY [facility] Last Admin: 11/05/24 08:20 Dose: 500 mg Documented By: HARSHIL Multivitamins/Vitamin C (Multivitamin Tablet) 1 tab PO DAILY [facility] Last Admin: 11/05/24 08:20 Dose: 1 tab Documented By: HARSHIL Ondansetron HCl (Ondansetron Hcl 4 Mg/2 Ml Vial) 4 mg IVPUSH Q8H PRN PRN Reason: Nausea and Vomiting Oxycodone HCl (Oxycodone Hcl Immed Release 5 Mg Tablet) 5 mg PO Q6H PRN PRN Reason: Pain, Severe (Pain Scale 7-10) Last Admin: 11/05/24 04:03 Dose: 5 mg Documented By: CASTILLO Pharmacy Consult (Consult Rx Vancomycin Dosing) 1 each MISCELLANE DAILY PRN PRN Reason: Consult order Polyethylene Glycol (Polyethylene Glycol 3350 17 Gm Powd.Pack) 17 gm PO DAILY PRN PRN Reason: Constipation Pyridoxine HCl (Pyridoxine Hcl (Vitamin B6) 50 Mg Tablet) 50 mg PO DAILY [facility] Last Admin: 11/05/24 08:20 Dose: 50 mg Documented By: HARSHIL Sodium Chloride (0.9 % Sodium Chloride Flush 3 Ml Syringe) 3 ml IVFLUSH QSHIFT [facility] Last Admin: 11/05/24 08:29 Dose: 3 ml Documented By: HARSHIL Vitamin D (Cholecalciferol (Vitamin D3) 25 Mcg Tablet) 25 mcg PO DAILY [facility] Last Admin: 11/05/24 08:20 Dose: 25 mcg Documented By: HARSHIL <Pebbles Barrett PA-C - Last Filed: 11/05/24 09:52> Labs CBC & Chem 7: 11/06/24 05:42 11/06/24 05:42 <Pebbles Barrett PA-C - Last Filed: 11/05/24 09:52> Labs: Laboratory Results - last 24 hr 11/04/24 11/04/24 11/04/24 11:14 16:03 20:01 MCV MCH MCHC RDW Plt Count MPV Immature Gran % (Auto) Neut % (Auto) Lymph % (Auto) [place] % (Auto) Eos % (Auto) Baso % (Auto) Lymph # (Auto) [place] # (Auto) Eos # (Auto) Baso # (Auto) Abs Immat Gran (auto) Absolute Neuts (auto) Absolute Nucleated RBC Nucleated RBC % (auto) Hold Purple Top Anion Gap Estim Creat Clear Calc Estimated GFR POC Glucose 150 H 92 Random Glucose Calcium Vancomycin Trough 20.8 H Random Vancomycin 11/04/24 11/05/24 11/05/24 20:19 03:04 05:46 MCV 88.4 MCH 28.0 MCHC 31.7 RDW 15.0 Plt Count 230 MPV 10.1 Immature Gran % (Auto) 0.6 H Neut % (Auto) 84.0 H Lymph % (Auto) 6.2 L [place] % (Auto) 7.6 Eos % (Auto) 1.2 Baso % (Auto) 0.4 Lymph # (Auto) 0.8 L [place] # (Auto) 1.0 Eos # (Auto) 0.2 Baso # (Auto) 0.1 Abs Immat Gran (auto) 0.08 H Absolute Neuts (auto) 10.8 H Absolute Nucleated RBC 0.000 Nucleated RBC % (auto) 0.0 Hold Purple Top Anion Gap Estim Creat Clear Calc Cancelled Estimated GFR Cancelled POC Glucose 118 H Random Glucose Calcium Vancomycin Trough Random Vancomycin 18.0 11/05/24 11/05/24 07:13 07:59 MCV MCH MCHC RDW Plt Count MPV Immature Gran % (Auto) Neut % (Auto) Lymph % (Auto) [place] % (Auto) Eos % (Auto) Baso % (Auto) Lymph # (Auto) [place] # (Auto) Eos # (Auto) Baso # (Auto) Abs Immat Gran (auto) Absolute Neuts (auto) Absolute Nucleated RBC Nucleated RBC % (auto) Hold Purple Top SEE NOTE Anion Gap 9 L Estim Creat Clear Calc 38.8 Estimated GFR 23 POC Glucose 98 Random Glucose 98 Calcium 8.7 Vancomycin Trough Random Vancomycin <Pebbles Barrett PA-C - Last Filed: 11/05/24 09:52> Microbiology Microbiology Results: Microbiology 11/03/24 12:28 Gram Stain - Final Groin Routine Culture - Final Methicillin Res Staph Aureus 11/03/24 08:44 Blood Culture - Preliminary Blood - Venous No growth after 24 hours. 11/03/24 08:44 Blood Culture - Preliminary Blood - Venous No growth after 24 hours. <Pebbles Barrett PA-C - Last Filed: 11/05/24 09:52> Procedures Date of Service Date of Service: 11/05/24 <Pebbles Barrett PA-C - Last Filed: 11/05/24 09:52> 11/06/24 <Michael Timmons MD - Last Filed: 11/06/24 10:20> Progress Note: A&P Assessment and plan (1) Abscess and cellulitis of gluteal region: Status: Acute <Pebbles Barrett PA-C - Last Filed: 11/05/24 09:52> Assessment and Plan: Cellulitis worsening on the right groin area towards the medial thigh Opening on the skin draining In view of the worsening cellulitis, I explained to him that we will bring him to the operating room for I and D and exploration of the area sure that all fluid pockets are drained I explained the technique of this procedure I reviewed the risks including but not limited to bleeding, infections, poor healing, postop pain He has given consent <Michael Timmons MD - Last Filed: 11/06/24 10:20> Assessment and Plan: Admitted with right groin/buttock abscess and cellulitis. Pain improving, WBC downtrending. Abscess cx shows MRSA. Remains on IV vanco. Abscess cavity remains open and draining without any further fluctuant collection palpated. THere is moderate surrounding residual induration and edema/erythema extending inferiorly of right medial thigh therefore would recommend another day of IV abx. Wound redressed with corner of fluff packed into abscess cavity followed by dry fluffs, abd dressing and tape. Recommend moisture barrier cream of surrounding area as he has skin maceration due to persistent moisture. <Pebbles Barrett PA-C - Last Filed: 11/05/24 09:52> Time Spent With Patient Time: Total time managing care of this patient today ____ minutes. <Pebbles Barrett PA-C - Last Filed: 11/05/24 09:52> Quality Stroke Does the patient have a stroke diagnosis?: No <Pebbles Barrett PA-C - Last Filed: 11/05/24 09:52> VTE Prior VTE?: No <Pebbles Barrett PA-C - Last Filed: 11/05/24 09:52> VTE Risk Level:: Medical - moderate - high <Pebbles Barrett PA-C - Last Filed: 11/05/24 09:52> VTE Device Contraindication: Treatment Not Indicated <Pebbles Barrett PA-C - Last Filed: 11/05/24 09:52> VTE Drug Contraindication: N/A - Med Ordered <BONIFACIO Johnson Last Filed: 11/05/24 09:52>
[2024-11-05] MEDS: Calcium Carbonate 750 MG TAB.CHEW PO (10:05)
[2024-11-05 11:29] LABS: Glucose, Whole Blood 99 mg/dL (60-115)
[2024-11-05] MEDS: Enoxaparin Sodium 40 MG/0.4 ML SYRINGE SUBCUT (12:23)
[2024-11-05] MEDS: Morphine Sulfate 4 MG/ML CARTRIDGE IVPUSH (13:25)
--- NOTE | 2024-11-05 13:41 | PM.EVENT ---
Event Note Date of Service: 11/05/24 Event Note: Notified by RN that patient found another draining area of right anterior groin when he was cleaning up. Reassessed patient- small open area of right anterior groin with purulent drainage- probed with q tip and it tunnels posteriorly to abscess cavity- very tender to palpation with surrounding erythema/induration; unable to tolerate bedside expression of collection and would not tolerate I&D at bedside. Will add onto the OR schedule today for I&D of right groin. Patient made NPO. Last had a couple of bites of irish toast at 8am. Time Spent With Patient Time: Total time managing care of this patient today ____ minutes.
--- NOTE | 2024-11-05 13:51 | MHC.CM.PN ---
EMR reviewed and per MD rounds, pt is not medically cleared for discharge due to management of right groin & buttock abscess and cellulitis, pending I & D of right groin.
--- NOTE | 2024-11-05 14:40 | HO.PM.IMPN ---
Subjective Subjective Date of Service: 11/05/24 Interval History: seen and evaluated feels the redness is spreading wound draining but more erythema growing MRSA in wound Developed JOSE A no other events Review of Systems Review of Systems: Yes all other systems are reviewed and are negative Physical Exam Vital Signs: Vital Signs: Last Vital Signs Temp 97.8 F 11/05/24 14:16 Pulse 75 11/05/24 14:16 Resp 20 11/05/24 14:16 BP 123/72 11/05/24 14:16 Pulse Ox 100 11/05/24 14:16 O2 Del Method Room Air 11/05/24 14:16 BMI result Body Mass Index 38.7 Const: Other: Constitutional : interactive, not in distress Cardiovascular : no JVP, no lower extremity edema Respiratory : bilateral chest movement, not in resp distress Gastrointestinal: soft, lax, Non tender Skin : Warm, Dry, large open abscess in right thigh with drainage, worsening erythema and warmth Neurological : Alert & oriented , No focal deficit Objective Data Active Medications Acetaminophen (Acetaminophen 325 Mg Tablet) 650 mg PO Q6H PRN PRN Reason: Pain, Mild 1-3,fever,headache Last Admin: 11/04/24 15:41 Dose: 650 mg Documented By: DABRonen Calcium Carbonate (Calcium Carbonate 750 Mg Tab.Chew) 750 mg PO Q4H PRN PRN Reason: Heartburn Last Admin: 11/05/24 10:05 Dose: 750 mg Documented By: DEYVI Enoxaparin Sodium (Enoxaparin Sodium 30 Mg/0.3 Ml Syringe) 30 mg SUBCUT Q24H [facility] Lactated Ringer's (Lr) 1,000 mls @ 100 mls/hr IVCONT .Q10H [facility] Sodium Chloride (Ns) 500 mls @ 20 mls/hr IVCONT .Q24H [facility] Doxycycline Hyclate 100 mg/ (Sodium Chloride) 250 mls @ 166.67 mls/hr IV Q12H [facility] Insulin Human Lispro (Insulin Lispro 100 Unit/Ml 3 Ml Vial) 0 unit SUBCUT TIDAC PRN; Protocol PRN Reason: hyperglycemia Magnesium Hydroxide (Milk Of Magnesia 30 Ml Oral.Susp) 30 ml PO DAILY PRN PRN Reason: Constipation Melatonin (Melatonin 3 Mg Tablet) 6 mg PO BEDTIME PRN PRN Reason: Insomnia Multivitamins/Vitamin C (Multivitamin Tablet) 1 tab PO DAILY [facility] Last Admin: 11/05/24 08:20 Dose: 1 tab Documented By: HARSHIL Ondansetron HCl (Ondansetron Hcl 4 Mg/2 Ml Vial) 4 mg IVPUSH Q8H PRN PRN Reason: Nausea and Vomiting Oxycodone HCl (Oxycodone Hcl Immed Release 5 Mg Tablet) 5 mg PO Q6H PRN PRN Reason: Pain, Severe (Pain Scale 7-10) Last Admin: 11/05/24 10:05 Dose: 5 mg Documented By: DEYVI Pharmacy Consult (Consult Rx Vancomycin Dosing) 1 each MISCELLANE DAILY PRN PRN Reason: Consult order Polyethylene Glycol (Polyethylene Glycol 3350 17 Gm Powd.Pack) 17 gm PO DAILY PRN PRN Reason: Constipation Pyridoxine HCl (Pyridoxine Hcl (Vitamin B6) 50 Mg Tablet) 50 mg PO DAILY [facility] Last Admin: 11/05/24 08:20 Dose: 50 mg Documented By: HARSHIL Sodium Chloride (0.9 % Sodium Chloride Flush 3 Ml Syringe) 3 ml IVFLUSH QSHIFT [facility] Last Admin: 11/05/24 08:29 Dose: 3 ml Documented By: HARSHIL Vitamin D (Cholecalciferol (Vitamin D3) 25 Mcg Tablet) 25 mcg PO DAILY [facility] Last Admin: 11/05/24 08:20 Dose: 25 mcg Documented By: HARSHIL Labs 11/05/24 05:46 11/05/24 07:59 Labs: Laboratory Results - last 24 hr 11/04/24 11/04/24 11/04/24 16:03 20:01 20:19 MCV MCH MCHC RDW Plt Count MPV Immature Gran % (Auto) Neut % (Auto) Lymph % (Auto) [place] % (Auto) Eos % (Auto) Baso % (Auto) Lymph # (Auto) [place] # (Auto) Eos # (Auto) Baso # (Auto) Abs Immat Gran (auto) Absolute Neuts (auto) Absolute Nucleated RBC Nucleated RBC % (auto) Hold Purple Top Anion Gap Estim Creat Clear Calc Estimated GFR POC Glucose 92 118 H Random Glucose Calcium Vancomycin Trough 20.8 H Random Vancomycin 11/05/24 11/05/24 11/05/24 03:04 05:46 07:13 MCV 88.4 MCH 28.0 MCHC 31.7 RDW 15.0 Plt Count 230 MPV 10.1 Immature Gran % (Auto) 0.6 H Neut % (Auto) 84.0 H Lymph % (Auto) 6.2 L [place] % (Auto) 7.6 Eos % (Auto) 1.2 Baso % (Auto) 0.4 Lymph # (Auto) 0.8 L [place] # (Auto) 1.0 Eos # (Auto) 0.2 Baso # (Auto) 0.1 Abs Immat Gran (auto) 0.08 H Absolute Neuts (auto) 10.8 H Absolute Nucleated RBC 0.000 Nucleated RBC % (auto) 0.0 Hold Purple Top Anion Gap Estim Creat Clear Calc Cancelled Estimated GFR Cancelled POC Glucose 98 Random Glucose Calcium Vancomycin Trough Random Vancomycin 18.0 11/05/24 11/05/24 07:59 11:25 MCV MCH MCHC RDW Plt Count MPV Immature Gran % (Auto) Neut % (Auto) Lymph % (Auto) [place] % (Auto) Eos % (Auto) Baso % (Auto) Lymph # (Auto) [place] # (Auto) Eos # (Auto) Baso # (Auto) Abs Immat Gran (auto) Absolute Neuts (auto) Absolute Nucleated RBC Nucleated RBC % (auto) Hold Purple Top SEE NOTE Anion Gap 9 L Estim Creat Clear Calc 38.8 Estimated GFR 23 POC Glucose 99 Random Glucose 98 Calcium 8.7 Vancomycin Trough Random Vancomycin Microbiology Microbiology Results: Microbiology 11/03/24 08:44 Blood Culture - Preliminary Blood - Venous No growth after 48 hours. 11/03/24 08:44 Blood Culture - Preliminary Blood - Venous No growth after 48 hours. 11/03/24 12:28 Gram Stain - Final Groin Routine Culture - Final Methicillin Res Staph Aureus Assessment and Plan (1) Sepsis: Status: Acute (2) Abscess and cellulitis of gluteal region: Status: Acute (3) Acute kidney injury: Status: Acute Plan 48-year-old male with a past medical history of hypertension, gout, hyperlipidemia, anxiety, documented history of PVD and tremors presented to the ED after a 4 day history of right groin / thigh pain and swelling. Sepsis 2/2 Cellulitis/abscess right posterior thigh Seen by surgery, to do I&D blood Cultures pending, wound cx growing MRSA DC IV vancomycin and Zosyn for JOSE A and high Vanco trough Keep only on Doxycycline for now Pain management with Tylenol, and oxycodone as needed. follow Vancomycin trough Acute kidney injury ATN from IV Contrast, Vancomycin toxicity, interstitial nephritis check urine studies Hold Nephrotoxins IVF follow I\O consider nephro eval Vancomycin toxicity Trough of 29 DC Vanco and trend levels Type 2 diabetes Blood glucose checks q.i.d., lispro sliding scale for blood glucose control A1c 5.8 Gout hold allopurinol. Patient is a full code DVT prophylaxis with Lovenox Quality Stroke Does the patient have a stroke diagnosis?: No VTE Prior VTE?: No VTE Risk Level:: Medical - moderate - high VTE Device Contraindication: Treatment Not Indicated VTE Drug Contraindication: N/A - Med Ordered
[2024-11-05 14:42] LABS: Vancomycin Random 29.3 mcg/mL (15-20)
[2024-11-05 14:45] LABS: Glucose, Whole Blood 66 mg/dL (60-115)
[2024-11-05] MEDS: Lactated Ringers 1,000 ML 100 ML IVCONT ×2 (15:02→17:15)
[2024-11-05] MEDS: Dextrose 5 % 250 ML 100 ML IV (15:10)
--- NOTE | 2024-11-05 15:31 | HO.ANESPROP2 ---
HPI - Anesthesia Eval Consult details Narrative: For I&D right groin PMFSH Active Problems Active Problems: All Active Problems Acute kidney injury (Acute) Sepsis (Acute) Abscess and cellulitis of gluteal region (Acute) Abscess (Acute) Cellulitis (Acute) Left hip pain (Acute) Leg swelling (Acute) Fall (Acute) Pain of left thumb (Acute) Right knee sprain (Acute) Knee effusion (Acute) Knee pain (Acute) Leg edema, right (Acute) Low back pain (Acute) Anemia (Acute) UTI (urinary tract infection) (Acute) Colon cancer screening (Acute) Generalized anxiety disorder (Acute) History of sleeve gastrectomy (Acute) Low vitamin D level (Acute) Right foot pain (Acute) Right leg numbness (Acute) Internal derangement of right knee (Acute) Osteoarthritis of right knee (Acute) Gout of left knee (Acute) Acute gout (Acute) Renal calculi (Acute) Right ankle pain (Acute) Arthritis of ankle, left (Acute) Left hand pain (Acute) Left ankle pain (Acute) Elbow pain, right (Acute) Peripheral vascular disease (Acute) Foot pain, left (Acute) Cellulitis (Acute) Essential tremor (Acute) Gout (Acute) Obesity (BMI 30-39.9) (Acute) Type 2 diabetes mellitus with hyperglycemia (Acute) Hypertension (Acute) Hypercholesterolemia (Acute) Past Medical History Medical History Obesity (BMI 30-39.9) Type 2 diabetes mellitus with hyperglycemia Hypertension Essential tremor Hypercholesterolemia Anxiety and depression Contracture, left hand Gout Family History Family History Father No problems noted. Mother No problems noted. Family history of problems with anesthesia: No Surgical History Surgical History History of tonsillectomy History of cholecystectomy History of sleeve gastrectomy History of Problems with Anesthesia: No Social History Social History Household Members: None Housing: Apartment Do you presently have visiting nurse or other home services: No Alcohol intake: current Alcohol intake frequency: a few times a week Alcohol type: beer Patient Tobacco Use Status: Never used Tobacco Tobacco use type: Cigarette e-Cigarette/Vaping Use: Never Used Second Hand Smoke Exposure: No service: No Current occupational status: employed Current occupation: [employer] Current occupational exposures/hazards: No Cognitive needs: No Hearing needs: No Vision needs: No Meds Allergies Allergy/AdvReac Type Severity Reaction Status Date / Time latex [LATEX] Allergy Intermediate RASH Verified 11/03/24 05:29 acetaminophen [Tylenol] Allergy Unknown stomach Verified 11/03/24 05:29 upset amoxicillin Allergy Unknown nausea and Verified 11/03/24 05:29 vomiting Active Medications: Current Medications Acetaminophen (Acetaminophen 325 Mg Tablet) 650 mg PO Q6H PRN PRN Reason: Pain, Mild 1-3,fever,headache Last Admin: 11/04/24 15:41 Dose: 650 mg Calcium Carbonate (Calcium Carbonate 750 Mg Tab.Chew) 750 mg PO Q4H PRN PRN Reason: Heartburn Last Admin: 11/05/24 10:05 Dose: 750 mg Enoxaparin Sodium (Enoxaparin Sodium 30 Mg/0.3 Ml Syringe) 30 mg SUBCUT Q24H [facility] Lactated Ringer's (Lr) 1,000 mls @ 100 mls/hr IVCONT .Q10H [facility]RE[facility] Last Admin: 11/05/24 15:02 Dose: 100 mls/hr Sodium Chloride (Ns) 500 mls @ 20 mls/hr IVCONT .Q24H [facility] Doxycycline Hyclate 100 mg/ (Sodium Chloride) 250 mls @ 166.67 mls/hr IV Q12H TREMA[facility] Dextrose (D5w) 250 mls @ 0 mls/hr IV .Q0M PRN PRN Reason: Per Protocol Last Admin: 11/05/24 15:10 Dose: 100 mls/hr Cefazolin Sodium/Dextrose (Ancef) 2 gm in 50 mls @ 100 mls/hr IV PREOP ONE Stop: 11/05/24 15:36 Insulin Human Lispro (Insulin Lispro 100 Unit/Ml 3 Ml Vial) 0 unit SUBCUT TIDAC PRN; Protocol PRN Reason: hyperglycemia Magnesium Hydroxide (Milk Of Magnesia 30 Ml Oral.Susp) 30 ml PO DAILY PRN PRN Reason: Constipation Melatonin (Melatonin 3 Mg Tablet) 6 mg PO BEDTIME PRN PRN Reason: Insomnia Multivitamins/Vitamin C (Multivitamin Tablet) 1 tab PO DAILY TREMAYNE Last Admin: 11/05/24 08:20 Dose: 1 tab Ondansetron HCl (Ondansetron Hcl 4 Mg/2 Ml Vial) 4 mg IVPUSH Q8H PRN PRN Reason: Nausea and Vomiting Oxycodone HCl (Oxycodone Hcl Immed Release 5 Mg Tablet) 5 mg PO Q6H PRN PRN Reason: Pain, Severe (Pain Scale 7-10) Last Admin: 11/05/24 10:05 Dose: 5 mg Polyethylene Glycol (Polyethylene Glycol 3350 17 Gm Powd.Pack) 17 gm PO DAILY PRN PRN Reason: Constipation Pyridoxine HCl (Pyridoxine Hcl (Vitamin B6) 50 Mg Tablet) 50 mg PO DAILY [facility] Last Admin: 11/05/24 08:20 Dose: 50 mg Sodium Chloride (0.9 % Sodium Chloride Flush 3 Ml Syringe) 3 ml IVFLUSH QSHIFT [facility] Last Admin: 11/05/24 08:29 Dose: 3 ml Vitamin D (Cholecalciferol (Vitamin D3) 25 Mcg Tablet) 25 mcg PO DAILY [facility] Last Admin: 11/05/24 08:20 Dose: 25 mcg Home Medications ?Medication ?Instructions ?Recorded ?Confirmed ?Last Taken ?Type multivitamin 1 tab PO DAILY 03/27/21 11/03/24 11/01/24 History pyridoxine (vitamin B6) 50 mg 50 mg PO DAILY 11/27/21 11/03/24 11/01/24 History tablet Exam Height,Weight and Vital Signs: Height 5 ft 9 in Weight 119 kg Last Vital Signs Temp 97.8 F 11/05/24 14:16 Pulse 75 11/05/24 14:16 Resp 20 11/05/24 14:16 BP 123/72 11/05/24 14:16 Pulse Ox 100 11/05/24 14:16 O2 Del Method Room Air 11/05/24 14:16 Pertinent Lab Results Pertinent Lab Results: Laboratory Tests 11/03/24 11/03/24 11/03/24 05:42 08:44 13:21 WBC 19.0 H RBC 3.67 L Hgb 10.3 L Hct 32.8 L MCV 89.4 MCH 28.1 MCHC 31.4 RDW 14.6 Plt Count 211 D MPV 9.5 Immature Gran % (Auto) 0.7 H Neut % (Auto) 87.3 H Lymph % (Auto) 4.3 L Maury % (Auto) 6.8 Eos % (Auto) 0.6 Baso % (Auto) 0.3 Lymph # (Auto) 0.8 L Maury # (Auto) 1.3 H Eos # (Auto) 0.1 Baso # (Auto) 0.1 Abs Immat Gran (auto) 0.13 H Absolute Neuts (auto) 16.6 H Absolute Nucleated RBC 0.000 Nucleated RBC % (auto) 0.0 Hold Purple Top Sodium 139 Potassium 3.5 Chloride 103 Carbon Dioxide 26 Anion Gap 14 BUN 12 Creatinine 0.87 Estim Creat Clear Calc 131.1 Estimated GFR > 60 POC Glucose Random Glucose 126 H Estimat Average Glucose 114 Hemoglobin A1c % 5.6 Lactic Acid 1.2 Calcium 8.9 Total Bilirubin 0.9 AST 26 ALT 17 Alkaline Phosphatase 99 Total Protein 6.7 Albumin 3.6 Vancomycin Trough Random Vancomycin 11/03/24 11/03/24 11/03/24 17:05 17:44 22:08 WBC RBC Hgb Hct MCV MCH MCHC RDW Plt Count MPV Immature Gran % (Auto) Neut % (Auto) Lymph % (Auto) Maury % (Auto) Eos % (Auto) Baso % (Auto) Lymph # (Auto) Maury # (Auto) Eos # (Auto) Baso # (Auto) Abs Immat Gran (auto) Absolute Neuts (auto) Absolute Nucleated RBC Nucleated RBC % (auto) Hold Purple Top Sodium Potassium Chloride Carbon Dioxide Anion Gap BUN Creatinine Estim Creat Clear Calc Estimated GFR POC Glucose 69 109 82 Random Glucose Estimat Average Glucose Hemoglobin A1c % Lactic Acid Calcium Total Bilirubin AST ALT Alkaline Phosphatase Total Protein Albumin Vancomycin Trough Random Vancomycin 11/04/24 11/04/24 11/04/24 03:44 07:31 11:14 WBC 13.1 H RBC 3.53 L Hgb 10.1 L Hct 32.0 L MCV 90.7 MCH 28.6 MCHC 31.6 RDW 14.9 Plt Count 213 MPV 10.4 Immature Gran % (Auto) 0.7 H Neut % (Auto) 81.5 H Lymph % (Auto) 9.5 L Maury % (Auto) 6.8 Eos % (Auto) 1.2 Baso % (Auto) 0.3 Lymph # (Auto) 1.2 Maury # (Auto) 0.9 Eos # (Auto) 0.2 Baso # (Auto) 0.0 Abs Immat Gran (auto) 0.09 H Absolute Neuts (auto) 10.7 H Absolute Nucleated RBC 0.000 Nucleated RBC % (auto) 0.0 Hold Purple Top Sodium 145 Potassium 3.2 L Chloride 107 Carbon Dioxide 25 Anion Gap 16 BUN 8 L Creatinine 0.73 Estim Creat Clear Calc 156.2 Estimated GFR > 60 POC Glucose 93 150 H Random Glucose 76 Estimat Average Glucose Hemoglobin A1c % Lactic Acid Calcium 8.7 Total Bilirubin 0.8 AST 18 ALT 13 Alkaline Phosphatase 126 H Total Protein 6.1 L Albumin 3.1 L Vancomycin Trough Random Vancomycin 11/04/24 11/04/24 11/04/24 16:03 20:01 20:19 WBC RBC Hgb Hct MCV MCH MCHC RDW Plt Count MPV Immature Gran % (Auto) Neut % (Auto) Lymph % (Auto) Maury % (Auto) Eos % (Auto) Baso % (Auto) Lymph # (Auto) Maury # (Auto) Eos # (Auto) Baso # (Auto) Abs Immat Gran (auto) Absolute Neuts (auto) Absolute Nucleated RBC Nucleated RBC % (auto) Hold Purple Top Sodium Potassium Chloride Carbon Dioxide Anion Gap BUN Creatinine Estim Creat Clear Calc Estimated GFR POC Glucose 92 118 H Random Glucose Estimat Average Glucose Hemoglobin A1c % Lactic Acid Calcium Total Bilirubin AST ALT Alkaline Phosphatase Total Protein Albumin Vancomycin Trough 20.8 H Random Vancomycin 11/05/24 11/05/24 11/05/24 03:04 05:46 07:13 WBC 12.9 H RBC 3.46 L Hgb 9.7 L Hct 30.6 L MCV 88.4 MCH 28.0 MCHC 31.7 RDW 15.0 Plt Count 230 MPV 10.1 Immature Gran % (Auto) 0.6 H Neut % (Auto) 84.0 H Lymph % (Auto) 6.2 L Maury % (Auto) 7.6 Eos % (Auto) 1.2 Baso % (Auto) 0.4 Lymph # (Auto) 0.8 L Maury # (Auto) 1.0 Eos # (Auto) 0.2 Baso # (Auto) 0.1 Abs Immat Gran (auto) 0.08 H Absolute Neuts (auto) 10.8 H Absolute Nucleated RBC 0.000 Nucleated RBC % (auto) 0.0 Hold Purple Top Sodium Potassium Chloride Carbon Dioxide Anion Gap BUN Creatinine Cancelled Estim Creat Clear Calc Cancelled Estimated GFR Cancelled POC Glucose 98 Random Glucose Estimat Average Glucose Hemoglobin A1c % Lactic Acid Calcium Total Bilirubin AST ALT Alkaline Phosphatase Total Protein Albumin Vancomycin Trough Random Vancomycin 18.0 11/05/24 11/05/24 11/05/24 07:59 11:25 14:06 WBC RBC Hgb Hct MCV MCH MCHC RDW Plt Count MPV Immature Gran % (Auto) Neut % (Auto) Lymph % (Auto) Maury % (Auto) Eos % (Auto) Baso % (Auto) Lymph # (Auto) Maury # (Auto) Eos # (Auto) Baso # (Auto) Abs Immat Gran (auto) Absolute Neuts (auto) Absolute Nucleated RBC Nucleated RBC % (auto) Hold Purple Top SEE NOTE Sodium 140 Potassium 4.2 D Chloride 109 H Carbon Dioxide 26 Anion Gap 9 L BUN 22 H Creatinine 2.99 H Estim Creat Clear Calc 38.8 Estimated GFR 23 POC Glucose 99 Random Glucose 98 Estimat Average Glucose Hemoglobin A1c % Lactic Acid Calcium 8.7 Total Bilirubin AST ALT Alkaline Phosphatase Total Protein Albumin Vancomycin Trough Random Vancomycin 29.3 H* 11/05/24 14:39 WBC RBC Hgb Hct MCV MCH MCHC RDW Plt Count MPV Immature Gran % (Auto) Neut % (Auto) Lymph % (Auto) Maury % (Auto) Eos % (Auto) Baso % (Auto) Lymph # (Auto) Maury # (Auto) Eos # (Auto) Baso # (Auto) Abs Immat Gran (auto) Absolute Neuts (auto) Absolute Nucleated RBC Nucleated RBC % (auto) Hold Purple Top Sodium Potassium Chloride Carbon Dioxide Anion Gap BUN Creatinine Estim Creat Clear Calc Estimated GFR POC Glucose 66 Random Glucose Estimat Average Glucose Hemoglobin A1c % Lactic Acid Calcium Total Bilirubin AST ALT Alkaline Phosphatase Total Protein Albumin Vancomycin Trough Random Vancomycin Airway Mallampati Class: II TM Dist: <=3cm Neck ROM: Full Heart: ok Lungs: ok Assessment and Plan Assessment Anesthesia Assessment: Anesthesia Plan Discussed and Chart Reviewed Final Anesthetic Review Family History of Problems with Anesthesia: No History of Problems with Anesthesia: No NPO: Yes ASA Class: III and Emergency Final Preanesthetic Review: No Changes in Pt Med Stat, Meds/Allgs Chart Reviewed, Consent Obtained/Reviewed and Anes Risks/Benef Reviewed Patient Risk: High Procedure Risk: Low Anesthetic Plan Anesthetic Plan: GA and Agree w/ Assess. and Plan Disposition: Standard PACU
--- NOTE | 2024-11-05 16:10 | W.PM.OPN ---
Operative Note Operative Note Date of Service: 11/05/24 Narrative: Preop diagnosis: Abscess, right proximal thigh near the groin and buttock Postop diagnosis: Abscess, right proximal thigh near the groin and buttock with subcutaneous fat necrosis Procedure: Incision drainage, excisional debridement of abscess, right proximal thigh near the groin and buttock Surgeon: Michael Timmons MD The patient is a 48-year-old male who was initially admitted 2 days ago because of abscess on the right buttock area. This area had improved but he was noted to have worsening of cellulitis on the proximal thigh near the groin today. I therefore told him it would be best to bring him to the operating room for I and D in view of the worsening redness. He understood the technique of the planned procedure as was the risks, benefits, and alternatives. He was brought to the operating room. He was placed in modified lithotomy position under general anesthesia via laryngeal mask airway. The right groin, right thigh and perineum along with the buttock were prepped and draped in the usual sterile fashion. A surgical time-out was done. The patient received cefazolin 2 g IV preoperatively There was note of extensive cellulitic changes in the proximal thigh medially and a little posteriorly. The old I&D site was seen near the groin. This area has improved significantly. However, adjacent but separate to this towards the medial thigh was note of a large area of induration, significant redness consistent with an abscess I proceeded to make a generous incision with a blade 15. This was carried down through the full-thickness of the skin into the subcutaneous fat. A large abscess cavity was incised. Cultures were taken. There was note of significant subcutaneous fat necrosis so we had to do extensive sharp excisional debridement with the curved Fall scissors. This incision was sent for pathology I did blunt dissection as well of the entire area to make sure we had broken down loculations. His abscess cavity was about 10 cm in widest dimension There was note of viable tissue with good bleeding throughout the exposed surfaces I copiously irrigated. Again, this abscess cavity was separate from the initial I&D site I used electrocautery for hemostasis. I applied iodoform packing to the large I&D and debridement site and also to the old I&D site Thick dressings were applied The procedure was completed The patient tolerated procedure well. There were no immediate complications Estimated blood loss was about 25 cc The patient was extubated without difficulty and transferred to the recovery room with stable vital signs
[2024-11-05 16:21] LABS: Glucose, Whole Blood 106 mg/dL (60-115)
[2024-11-05] MEDS: fentaNYL citrate/PF 100 MCG/2 ML VIAL 50 MCG IVPUSH ×2 (16:28→16:33)
[2024-11-05] MEDS: Morphine Sulfate 4 MG/ML CARTRIDGE 3 MG IVPUSH ×2 (17:11→20:21)
[2024-11-05] MEDS: Clindamycin Phosphate/D5W 600 MG/50 ML PIGGYBACK 100 MG IV ×2 (17:12→23:09)
[2024-11-05] MEDS: Enoxaparin Sodium 30 MG/0.3 ML SYRINGE SUBCUT (17:16)
[2024-11-05 17:39] LABS: Glucose, Whole Blood 96 mg/dL (60-115)
[2024-11-05 20:46] LABS: Glucose, Whole Blood 97 mg/dL (60-115)
[2024-11-05] MEDS: ondansetron HCL 4 MG/2 ML VIAL IVPUSH (21:02)
[2024-11-05 21:38] LABS: Appearance Urine Clear; Color Urine Yellow; Glucose Urine UA Negative (Negative); Leukocyte Esterase Urine Small (1+) (Negative); Nitrite Urine Negative (Negative); Specific Gravity - Urine <= 1.005 (1.005-1.025); UMIC TRIGGER UA YES; Urine Blood Moderate (2+) (Negative); Urine Ketones Negative (Negative); Urine Protein 30 (1+) mg/dL (Neg-Trace)
[2024-11-05 21:40] LABS: Bacteria Urine None Seen (None Seen); Hyaline Casts Urine 0-2 /LPF (0-2); Squamous Epithelial Cell Urine 0-2 /HPF (0-2)
[2024-11-05 23:23] LABS: Creatinine Urine 43.87 mg/dL
[2024-11-06] MEDS: Lactated Ringers 1,000 ML 100 ML IVCONT ×3 (03:36→20:45)
[2024-11-06 03:37] VITALS: BP 103/56; PULSE 67; RESP 18; TEMP 36.6; O2SAT 97
[2024-11-06] MEDS: Clindamycin Phosphate/D5W 600 MG/50 ML PIGGYBACK 100 MG IV ×4 (04:39→22:00)
[2024-11-06] MEDS: oxyCODONE HCl Immed Release 5 MG TABLET PO ×3 (04:55→20:46)
[2024-11-06] MEDS: Milk of Magnesia 30 ML ORAL.SUSP PO (05:03)
--- NOTE | 2024-11-06 05:58 | PC.NURSE ---
Patient reporting no bm in couple of days and requesting something to help him have a bm, prn MOM administered per aug.
[2024-11-06 06:15] LABS: MANUAL DIFF FLAG NO
[2024-11-06 06:32] LABS: Basophils Absolute Auto 0.1 X10*3/uL (0.0-0.2); Basophils Percent Auto 0.5 % (0-2); Eosinophils Absolute Auto 0.2 X10*3/uL (0.0-0.4); Eosinophils Percent Auto 1.4 % (0-4); Hematocrit 29.7 % (42.0-52.0); Hemoglobin 9.4 g/dl (14.0-18.0); Imm Gran Abs Auto 0.12 X10*3/uL (0.00-0.03); Imm Gran Pct Auto 1.1 % (0.0-0.4); Lymphocytes Absolute Auto 1.2 X10*3/uL (1.2-4.9); Lymphocytes Percent Auto 10.8 % (20-40); Mean Corpuscular HGB Conc 31.6 g/dl (31.0-36.0); Mean Corpuscular Hemoglobin 28.3 pg (27.0-33.0); Mean Corpuscular Volume 89.5 fL (80.0-98.0); Monocytes Absolute Auto 0.8 X10*3/uL (0.1-1.2); Monocytes Percent Auto 7.2 % (2-11); Neutrophils Absolute Auto 8.7 x10*3/uL (2.0-8.3); Platelet Count 253 X10*3/uL (160-400); Red Blood Count 3.32 X10*6/uL (4.60-5.80); Red Cell Distribution Width 15.2 % (11.0-16.0)
[2024-11-06 06:51] LABS: Anion Gap 15 (12-20); Blood Urea Nitrogen 26 mg/dL (9-16); Calcium 8.7 mg/dL (8.4-10.2); Carbon Dioxide 23 mmol/L (22-29); Chloride 108 mmol/L (96-108); Creatinine Clr Calc Pharmacy 26.7; Estimated Glomerular Filt Rate 15; Glucose Random 84 mg/dL (60-115); Potassium 4.1 mmol/L (3.3-5.1); Sodium 142 mmol/L (135-145)
[2024-11-06 07:17] VITALS: BP 106/56; PULSE 72; RESP 18; TEMP 36.3; O2SAT 94
[2024-11-06 07:22] LABS: Glucose, Whole Blood 96 mg/dL (60-115)
[2024-11-06] MEDS: 0.9 % Sodium Chloride Flush 3 ML SYRINGE IVFLUSH ×2 (07:47→16:29)
[2024-11-06] MEDS: Lactated Ringers 1,000 ML 999 ML IV (07:47)
[2024-11-06] MEDS: Multivitamin TABLET 1 TAB PO (07:48)
[2024-11-06] MEDS: Cholecalciferol (Vitamin D3) 25 MCG TABLET PO (07:48)
[2024-11-06] MEDS: Pyridoxine HCl (Vitamin B6) 50 MG TABLET PO (07:48)
[2024-11-06] MEDS: ondansetron HCL 4 MG/2 ML VIAL IVPUSH (08:08)
[2024-11-06] MEDS: Morphine Sulfate 4 MG/ML CARTRIDGE 3 MG IVPUSH (08:10)
[2024-11-06 08:41] LABS: EOS QC POS YES; EOS Stain Quality OK YES
[2024-11-06 09:19] LABS: EOS Counted 0 CELLS; WBC, Counted 10 CELLS
--- NOTE | 2024-11-06 10:20 | P.PNGS_ITS ---
Subjective Subjective Date of Service: 11/06/24 Interval history: underwent I and D, exc debridement of thigh in OR yesterday has good pain control feels better Physical Exam 2 Vital Signs: Vital Signs: Last Vital Signs Temp 97.3 F 11/06/24 07:17 Pulse 72 11/06/24 07:17 Resp 18 11/06/24 07:17 BP 106/56 L 11/06/24 07:17 Pulse Ox 94 11/06/24 07:17 O2 Del Method Room Air 11/06/24 07:17 BMI result Body Mass Index 38.7 Const: General: comfortable and no acute distress Resp: Effort & Inspection: normal respiratory effort Cardio: Rate: regular rate GI: Palpation (GI): Soft to palpation Extrem: Other: right prox thigh much improved, cellulitis clearing, induration much less Objective Data Active Medications Acetaminophen (Acetaminophen 325 Mg Tablet) 650 mg PO Q6H PRN PRN Reason: Pain, Mild 1-3,fever,headache Last Admin: 11/04/24 15:41 Dose: 650 mg Documented By: ELIANA Calcium Carbonate (Calcium Carbonate 750 Mg Tab.Chew) 750 mg PO Q4H PRN PRN Reason: Heartburn Last Admin: 11/05/24 10:05 Dose: 750 mg Documented By: DEYVI Enoxaparin Sodium (Enoxaparin Sodium 30 Mg/0.3 Ml Syringe) 30 mg SUBCUT Q24H [facility] Last Admin: 11/05/24 17:16 Dose: 30 mg Documented By: DEYVI Lactated Ringer's (Lr) 1,000 mls @ 100 mls/hr IVCONT .Q10H [facility] Last Admin: 11/06/24 09:49 Dose: Not Given Documented By: OLYA Non-Admin Reason: IV Running Sodium Chloride (Ns) 500 mls @ 20 mls/hr IVCONT .Q24H [facility] Last Admin: 11/05/24 16:55 Dose: Not Given Documented By: HARSHIL Non-Admin Reason: PACU Dextrose (D5w) 250 mls @ 0 mls/hr IV .Q0M PRN PRN Reason: Per Protocol Last Infusion: 11/05/24 17:39 Dose: Infused Documented By: HARSHIL Clindamycin Phosphate (Cleocin) 600 mg in 50 mls @ 100 mls/hr IV Q6H [facility] Last Infusion: 11/06/24 05:10 Dose: Infused Documented By: XU Insulin Human Lispro (Insulin Lispro 100 Unit/Ml 3 Ml Vial) 0 unit SUBCUT TIDAC PRN; Protocol PRN Reason: hyperglycemia Magnesium Hydroxide (Milk Of Magnesia 30 Ml Oral.Susp) 30 ml PO DAILY PRN PRN Reason: Constipation Last Admin: 11/06/24 05:03 Dose: 30 ml Documented By: XU Melatonin (Melatonin 3 Mg Tablet) 6 mg PO BEDTIME PRN PRN Reason: Insomnia Morphine Sulfate (Morphine Sulfate 4 Mg/Ml Cartridge) 3 mg IVPUSH Q3H PRN; Protocol PRN Reason: Pain, Severe (Pain Scale 7-10) Last Admin: 11/06/24 08:10 Dose: 3 mg Documented By: OLYA Multivitamins/Vitamin C (Multivitamin Tablet) 1 tab PO DAILY [facility] Last Admin: 11/06/24 07:48 Dose: 1 tab Documented By: OLYA Ondansetron HCl (Ondansetron Hcl 4 Mg/2 Ml Vial) 4 mg IVPUSH Q8H PRN PRN Reason: Nausea and Vomiting Last Admin: 11/06/24 08:08 Dose: 4 mg Documented By: OLYA Oxycodone HCl (Oxycodone Hcl Immed Release 5 Mg Tablet) 5 mg PO Q6H PRN PRN Reason: Pain, Severe (Pain Scale 7-10) Last Admin: 11/06/24 04:55 Dose: 5 mg Documented By: XU Polyethylene Glycol (Polyethylene Glycol 3350 17 Gm Powd.Pack) 17 gm PO DAILY PRN PRN Reason: Constipation Pyridoxine HCl (Pyridoxine Hcl (Vitamin B6) 50 Mg Tablet) 50 mg PO DAILY [facility] Last Admin: 11/06/24 07:48 Dose: 50 mg Documented By: OLYA Sodium Chloride (0.9 % Sodium Chloride Flush 3 Ml Syringe) 3 ml IVFLUSH QSHIFT [facility] Last Admin: 11/06/24 07:47 Dose: 3 ml Documented By: OLYA Vitamin D (Cholecalciferol (Vitamin D3) 25 Mcg Tablet) 25 mcg PO DAILY [facility] Last Admin: 11/06/24 07:48 Dose: 25 mcg Documented By: OLYA Labs 11/06/24 05:42 05/31/25 05:42 Labs: Laboratory Results - last 24 hr 11/05/24 11/05/24 11/05/24 11:25 14:06 14:39 MCV MCH MCHC RDW Plt Count MPV Immature Gran % (Auto) Neut % (Auto) Lymph % (Auto) Gordon % (Auto) Eos % (Auto) Baso % (Auto) Lymph # (Auto) Gordon # (Auto) Eos # (Auto) Baso # (Auto) Abs Immat Gran (auto) Absolute Neuts (auto) Absolute Nucleated RBC Nucleated RBC % (auto) Anion Gap Estim Creat Clear Calc Estimated GFR POC Glucose 99 66 Random Glucose Calcium Urine Color Urine Appearance Urine pH Ur Specific Norris Urine Protein Urine Glucose (UA) Urine Ketones Urine Blood Urine Nitrite Ur Leukocyte Esterase Urine RBC Urine WBC Ur Squamous Epith Cells Urine Bacteria Hyaline Casts Urine Eosinophils % Urine Creatinine Random Vancomycin 29.3 H* 11/05/24 11/05/24 11/05/24 16:17 17:36 20:42 MCV MCH MCHC RDW Plt Count MPV Immature Gran % (Auto) Neut % (Auto) Lymph % (Auto) Gordon % (Auto) Eos % (Auto) Baso % (Auto) Lymph # (Auto) Gordon # (Auto) Eos # (Auto) Baso # (Auto) Abs Immat Gran (auto) Absolute Neuts (auto) Absolute Nucleated RBC Nucleated RBC % (auto) Anion Gap Estim Creat Clear Calc Estimated GFR POC Glucose 106 96 97 Random Glucose Calcium Urine Color Urine Appearance Urine pH Ur Specific Norris Urine Protein Urine Glucose (UA) Urine Ketones Urine Blood Urine Nitrite Ur Leukocyte Esterase Urine RBC Urine WBC Ur Squamous Epith Cells Urine Bacteria Hyaline Casts Urine Eosinophils % Urine Creatinine Random Vancomycin 11/05/24 11/06/24 11/06/24 21:00 05:42 07:15 MCV 89.5 MCH 28.3 MCHC 31.6 RDW 15.2 Plt Count 253 MPV 10.0 Immature Gran % (Auto) 1.1 H Neut % (Auto) 79.0 H Lymph % (Auto) 10.8 L Gordon % (Auto) 7.2 Eos % (Auto) 1.4 Baso % (Auto) 0.5 Lymph # (Auto) 1.2 Gordon # (Auto) 0.8 Eos # (Auto) 0.2 Baso # (Auto) 0.1 Abs Immat Gran (auto) 0.12 H Absolute Neuts (auto) 8.7 H Absolute Nucleated RBC 0.000 Nucleated RBC % (auto) 0.0 Anion Gap 15 Estim Creat Clear Calc 26.7 Estimated GFR 15 POC Glucose 96 Random Glucose 84 Calcium 8.7 Urine Color Yellow Urine Appearance Clear Urine pH 6.0 Ur Specific Norris <= 1.005 Urine Protein 30 (1+) H Urine Glucose (UA) Negative Urine Ketones Negative Urine Blood Moderate (2+) H Urine Nitrite Negative Ur Leukocyte Esterase Small (1+) H Urine RBC 11-20 H Urine WBC 6-10 H Ur Squamous Epith Cells 0-2 Urine Bacteria None Seen Hyaline Casts 0-2 Urine Eosinophils % 0.0 Urine Creatinine 43.87 Random Vancomycin Microbiology Microbiology Results: Microbiology 11/05/24 15:55 Gram Stain - Final Thigh Right Routine Culture - Preliminary Culture in progress. 11/03/24 08:44 Blood Culture - Preliminary Blood - Venous No growth after 48 hours. 11/03/24 08:44 Blood Culture - Preliminary Blood - Venous No growth after 48 hours. 11/03/24 12:28 Gram Stain - Final Groin Routine Culture - Final Methicillin Res Staph Aureus Procedures Date of Service Date of Service: 11/06/24 Progress Note: A&P Assessment and plan (1) Abscess and cellulitis of gluteal region: Status: Acute Assessment and Plan: s/p I and D and debridement of a second area yesterday now much improved cellulitis clearing 2 open wounds - packing in place i loosened the packings and trimmed these shorter dressings replaced paln to remove original packing tomorrow crea rising - Vanco induced? Time Spent With Patient Time: Total time managing care of this patient today ____ minutes. Quality Stroke Does the patient have a stroke diagnosis?: No VTE Prior VTE?: No VTE Risk Level:: Medical - moderate - high VTE Device Contraindication: Treatment Not Indicated VTE Drug Contraindication: N/A - Med Ordered
[2024-11-06 11:11] LABS: Glucose, Whole Blood 107 mg/dL (60-115)
--- NOTE | 2024-11-06 11:41 | P.PNIM_ITS ---
Subjective Subjective Date of Service: 11/06/24 Interval History: seen and evaluated feels the redness is spreading wound draining but more erythema growing MRSA in wound Developed JOSE A and Cr worsening no other events Review of Systems Review of Systems: Yes all other systems are reviewed and are negative Physical Exam 2 Vital Signs: Vital Signs: Last Vital Signs Temp 97.3 F 11/06/24 07:17 Pulse 72 11/06/24 07:17 Resp 18 11/06/24 07:17 BP 106/56 L 11/06/24 07:17 Pulse Ox 94 11/06/24 07:17 O2 Del Method Room Air 11/06/24 07:17 BMI result Body Mass Index 38.7 Const: Other: Constitutional : interactive, not in distress Cardiovascular : no JVP, no lower extremity edema Respiratory : bilateral chest movement, not in resp distress Gastrointestinal: soft, lax, Non tender Skin : Warm, Dry, open wound in right thigh with drainage, improving erythema and warmth Neurological : Alert & oriented , No focal deficit Objective Data Active Medications Acetaminophen (Acetaminophen 325 Mg Tablet) 650 mg PO Q6H PRN PRN Reason: Pain, Mild 1-3,fever,headache Last Admin: 11/04/24 15:41 Dose: 650 mg Documented By: ELIANA Calcium Carbonate (Calcium Carbonate 750 Mg Tab.Chew) 750 mg PO Q4H PRN PRN Reason: Heartburn Last Admin: 11/05/24 10:05 Dose: 750 mg Documented By: DEYVI Enoxaparin Sodium (Enoxaparin Sodium 30 Mg/0.3 Ml Syringe) 30 mg SUBCUT Q24H [facility] Last Admin: 11/05/24 17:16 Dose: 30 mg Documented By: DEYVI Lactated Ringer's (Lr) 1,000 mls @ 100 mls/hr IVCONT .Q10H [facility] Last Admin: 11/06/24 10:36 Dose: 100 mls/hr Documented By: OLYA Sodium Chloride (Ns) 500 mls @ 20 mls/hr IVCONT .Q24H [facility] Last Admin: 11/05/24 16:55 Dose: Not Given Documented By: HARSHIL Non-Admin Reason: PACU Dextrose (D5w) 250 mls @ 0 mls/hr IV .Q0M PRN PRN Reason: Per Protocol Last Infusion: 11/05/24 17:39 Dose: Infused Documented By: HARSHIL Clindamycin Phosphate (Cleocin) 600 mg in 50 mls @ 100 mls/hr IV Q6H [facility] Last Infusion: 11/06/24 11:28 Dose: Infused Documented By: OLYA Insulin Human Lispro (Insulin Lispro 100 Unit/Ml 3 Ml Vial) 0 unit SUBCUT TIDAC PRN; Protocol PRN Reason: hyperglycemia Magnesium Hydroxide (Milk Of Magnesia 30 Ml Oral.Susp) 30 ml PO DAILY PRN PRN Reason: Constipation Last Admin: 11/06/24 05:03 Dose: 30 ml Documented By: XU Melatonin (Melatonin 3 Mg Tablet) 6 mg PO BEDTIME PRN PRN Reason: Insomnia Morphine Sulfate (Morphine Sulfate 4 Mg/Ml Cartridge) 3 mg IVPUSH Q3H PRN; Protocol PRN Reason: Pain, Severe (Pain Scale 7-10) Last Admin: 11/06/24 08:10 Dose: 3 mg Documented By: OLYA Multivitamins/Vitamin C (Multivitamin Tablet) 1 tab PO DAILY [facility] Last Admin: 11/06/24 07:48 Dose: 1 tab Documented By: OLYA Ondansetron HCl (Ondansetron Hcl 4 Mg/2 Ml Vial) 4 mg IVPUSH Q8H PRN PRN Reason: Nausea and Vomiting Last Admin: 11/06/24 08:08 Dose: 4 mg Documented By: OLYA Oxycodone HCl (Oxycodone Hcl Immed Release 5 Mg Tablet) 5 mg PO Q6H PRN PRN Reason: Pain, Severe (Pain Scale 7-10) Last Admin: 11/06/24 04:55 Dose: 5 mg Documented By: XU Polyethylene Glycol (Polyethylene Glycol 3350 17 Gm Powd.Pack) 17 gm PO DAILY PRN PRN Reason: Constipation Pyridoxine HCl (Pyridoxine Hcl (Vitamin B6) 50 Mg Tablet) 50 mg PO DAILY [facility] Last Admin: 11/06/24 07:48 Dose: 50 mg Documented By: OLYA Sodium Chloride (0.9 % Sodium Chloride Flush 3 Ml Syringe) [facility] Last Admin: 11/06/24 07:47 Dose: 3 ml Documented By: OLYA Vitamin D (Cholecalciferol (Vitamin D3) 25 Mcg Tablet) 25 mcg PO DAILY [facility] Last Admin: 11/06/24 07:48 Dose: 25 mcg Documented By: OLYA Labs 11/06/24 05:42 11/06/24 05:42 Labs: Laboratory Results - last 24 hr 11/05/24 11/05/24 11/05/24 14:06 14:39 16:17 MCV MCH MCHC RDW Plt Count MPV Immature Gran % (Auto) Neut % (Auto) Lymph % (Auto) [place] % (Auto) Eos % (Auto) Baso % (Auto) Lymph # (Auto) [place] # (Auto) Eos # (Auto) Baso # (Auto) Abs Immat Gran (auto) Absolute Neuts (auto) Absolute Nucleated RBC Nucleated RBC % (auto) Anion Gap Estim Creat Clear Calc Estimated GFR POC Glucose 66 106 Random Glucose Calcium Urine Color Urine Appearance Urine pH Ur Specific [place] Urine Protein Urine Glucose (UA) Urine Ketones Urine Blood Urine Nitrite Ur Leukocyte Esterase Urine RBC Urine WBC Ur Squamous Epith Cells Urine Bacteria Hyaline Casts Urine Eosinophils % Urine Creatinine Random Vancomycin 29.3 H* 11/05/24 11/05/24 11/05/24 17:36 20:42 21:00 MCV MCH MCHC RDW Plt Count MPV Immature Gran % (Auto) Neut % (Auto) Lymph % (Auto) [place] % (Auto) Eos % (Auto) Baso % (Auto) Lymph # (Auto) [place] # (Auto) Eos # (Auto) Baso # (Auto) Abs Immat Gran (auto) Absolute Neuts (auto) Absolute Nucleated RBC Nucleated RBC % (auto) Anion Gap Estim Creat Clear Calc Estimated GFR POC Glucose 96 97 Random Glucose Calcium Urine Color Yellow Urine Appearance Clear Urine pH 6.0 Ur Specific [place] <= 1.005 Urine Protein 30 (1+) H Urine Glucose (UA) Negative Urine Ketones Negative Urine Blood Moderate (2+) H Urine Nitrite Negative Ur Leukocyte Esterase Small (1+) H Urine RBC 11-20 H Urine WBC 6-10 H Ur Squamous Epith Cells 0-2 Urine Bacteria None Seen Hyaline Casts 0-2 Urine Eosinophils % 0.0 Urine Creatinine 43.87 Random Vancomycin 11/06/24 11/06/24 11/06/24 05:42 07:15 11:08 MCV 89.5 MCH 28.3 MCHC 31.6 RDW 15.2 Plt Count 253 MPV 10.0 Immature Gran % (Auto) 1.1 H Neut % (Auto) 79.0 H Lymph % (Auto) 10.8 L [place] % (Auto) 7.2 Eos % (Auto) 1.4 Baso % (Auto) 0.5 Lymph # (Auto) 1.2 [place] # (Auto) 0.8 Eos # (Auto) 0.2 Baso # (Auto) 0.1 Abs Immat Gran (auto) 0.12 H Absolute Neuts (auto) 8.7 H Absolute Nucleated RBC 0.000 Nucleated RBC % (auto) 0.0 Anion Gap 15 Estim Creat Clear Calc 26.7 Estimated GFR 15 POC Glucose 96 107 Random Glucose 84 Calcium 8.7 Urine Color Urine Appearance Urine pH Ur Specific [place] Urine Protein Urine Glucose (UA) Urine Ketones Urine Blood Urine Nitrite Ur Leukocyte Esterase Urine RBC Urine WBC Ur Squamous Epith Cells Urine Bacteria Hyaline Casts Urine Eosinophils % Urine Creatinine Random Vancomycin Microbiology Microbiology Results: Microbiology 11/05/24 15:55 Gram Stain - Final Thigh Right Routine Culture - Preliminary Culture in progress. 11/03/24 08:44 Blood Culture - Preliminary Blood - Venous No growth after 48 hours. 11/03/24 08:44 Blood Culture - Preliminary Blood - Venous No growth after 48 hours. 11/03/24 12:28 Gram Stain - Final Groin Routine Culture - Final Methicillin Res Staph Aureus Assessment and Plan (1) Acute kidney injury: Status: Acute (2) Sepsis: Status: Acute (3) Abscess and cellulitis of gluteal region: Status: Acute Plan 48-year-old male with a past medical history of hypertension, gout, hyperlipidemia, anxiety, documented history of PVD and tremors presented to the ED after a 4 day history of right groin / thigh pain and swelling. Sepsis 2/2 Cellulitis/abscess right posterior thigh Seen by surgery, to do I&D blood Cultures pending, wound cx growing MRSA DC IV vancomycin and Zosyn for JOSE A and high Vanco trough Keep only on Doxycycline for now Pain management with Tylenol, and oxycodone as needed. follow Vancomycin trough Acute kidney injury Cr worsening to 4.3 today, making urine, no signs of uremia likely ATN from IV Contrast, Vancomycin toxicity, interstitial nephritis urine studies Hold Nephrotoxins IVF follow I\O nephro consult placed Vancomycin toxicity Trough of 29 DC Vanco and trend levels Type 2 diabetes Blood glucose checks q.i.d., lispro sliding scale for blood glucose control A1c 5.8 Gout hold allopurinol. Patient is a full code DVT prophylaxis with Lovenox Quality Stroke Does the patient have a stroke diagnosis?: No VTE Prior VTE?: No VTE Risk Level:: Medical - moderate - high VTE Device Contraindication: Treatment Not Indicated VTE Drug Contraindication: N/A - Med Ordered
[2024-11-06 15:07] VITALS: BP 121/70; PULSE 70; RESP 18; TEMP 36.6; O2SAT 98
[2024-11-06 15:19] VITALS: O2SAT 97
[2024-11-06 16:09] LABS: Glucose, Whole Blood 91 mg/dL (60-115)
--- NOTE | 2024-11-06 16:13 | PM.CNNEP ---
History of Present Illness Reason for Consult Consult date: 11/06/24 Chief Complaint Chief complaint: abscss/cellulitis History of Present Illness Narrative: 48-year-old pleasant gentleman with past medical history of hypertension, diabetes mellitus, hyperlipidemia, peripheral vascular disease, gout presented to the hospital due to right inner thigh cellulitis. He received CT with contrast to rule out infection and on the same day patient's blood pressures dropped to 90 systolics on 11/03/2024. His baseline creatinine is around 0.8 upon admission, it increased to 2.99 on 11/05/2024 and 4.6 this morning so renal service is consulted. Of note patient's vancomycin level increased to 29 after which vancomycin has been changed to clindamycin Patient is not symptomatic, feels better this morning, denies any complaints Review of Systems Constitutional: Denies body ache(s) and Denies chills Eyes: Denies exophthalmos and Denies change in vision Reports Normal hearing present and Denies bleeding gums Cardiovascular: Reports Abdominal Distension, Denies chest pain and Denies chest pain at rest Respiratory: Denies chest congestion and Denies cough Reports Normal hearing present, Denies Neuro-related abnormal movements and Denies behavioral changes Psychiatric: Denies behavioral changes and Denies change in appetite PMFSH Past Medical History Medical History Obesity (BMI 30-39.9) Type 2 diabetes mellitus with hyperglycemia Hypertension Essential tremor Hypercholesterolemia Anxiety and depression Contracture, left hand Gout Family History Family History Father No problems noted. Mother No problems noted. 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 Current occupational exposures/hazards: No Cognitive needs: No Hearing needs: No Vision needs: No Meds Allergies Allergy/AdvReac Type Severity Reaction Status Date / Time latex [LATEX] Allergy Intermediate RASH Verified 11/03/24 05:29 acetaminophen [Tylenol] Allergy Unknown stomach Verified 11/03/24 05:29 upset amoxicillin Allergy Unknown nausea and Verified 11/03/24 05:29 vomiting Active Medications: Current Medications Acetaminophen (Acetaminophen 325 Mg Tablet) 650 mg PO Q6H PRN PRN Reason: Pain, Mild 1-3,fever,headache Last Admin: 11/04/24 15:41 Dose: 650 mg Calcium Carbonate (Calcium Carbonate 750 Mg Tab.Chew) 750 mg PO Q4H PRN PRN Reason: Heartburn Last Admin: 11/05/24 10:05 Dose: 750 mg Enoxaparin Sodium (Enoxaparin Sodium 30 Mg/0.3 Ml Syringe) 30 mg SUBCUT Q24H [facility] Last Admin: 11/05/24 17:16 Dose: 30 mg Lactated Ringer's (Lr) 1,000 mls @ 100 mls/hr IVCONT .Q10H [facility] Last Admin: 11/06/24 10:36 Dose: 100 mls/hr Sodium Chloride (Ns) 500 mls @ 20 mls/hr IVCONT .Q24H [facility] Last Admin: 11/06/24 14:26 Dose: Not Given Dextrose (D5w) 250 mls @ 0 mls/hr IV .Q0M PRN PRN Reason: Per Protocol Last Infusion: 11/05/24 17:39 Dose: Infused Clindamycin Phosphate (Cleocin) 600 mg in 50 mls @ 100 mls/hr IV Q6H [facility] Last Infusion: 11/06/24 11:28 Dose: Infused Insulin Human Lispro (Insulin Lispro 100 Unit/Ml 3 Ml Vial) 0 unit SUBCUT TIDAC PRN; Protocol PRN Reason: hyperglycemia Magnesium Hydroxide (Milk Of Magnesia 30 Ml Oral.Susp) 30 ml PO DAILY PRN PRN Reason: Constipation Last Admin: 11/06/24 05:03 Dose: 30 ml Melatonin (Melatonin 3 Mg Tablet) 6 mg PO BEDTIME PRN PRN Reason: Insomnia Morphine Sulfate (Morphine Sulfate 4 Mg/Ml Cartridge) 3 mg IVPUSH Q3H PRN; Protocol PRN Reason: Pain, Severe (Pain Scale 7-10) Last Admin: 11/06/24 08:10 Dose: 3 mg Multivitamins/Vitamin C (Multivitamin Tablet) 1 tab PO DAILY [facility] Last Admin: 11/06/24 07:48 Dose: 1 tab Ondansetron HCl (Ondansetron Hcl 4 Mg/2 Ml Vial) 4 mg IVPUSH Q8H PRN PRN Reason: Nausea and Vomiting Last Admin: 11/06/24 08:08 Dose: 4 mg Oxycodone HCl (Oxycodone Hcl Immed Release 5 Mg Tablet) 5 mg PO Q6H PRN PRN Reason: Pain, Severe (Pain Scale 7-10) Last Admin: 11/06/24 14:30 Dose: 5 mg Polyethylene Glycol (Polyethylene Glycol 3350 17 Gm Powd.Pack) 17 gm PO DAILY PRN PRN Reason: Constipation Pyridoxine HCl (Pyridoxine Hcl (Vitamin B6) 50 Mg Tablet) 50 mg PO DAILY [facility] Last Admin: 11/06/24 07:48 Dose: 50 mg Sodium Chloride (0.9 % Sodium Chloride Flush 3 Ml Syringe) 3 ml IVFLUSH QSHIFT [facility] Last Admin: 11/06/24 07:47 Dose: 3 ml Vitamin D (Cholecalciferol (Vitamin D3) 25 Mcg Tablet) 25 mcg PO DAILY [facility] Last Admin: 11/06/24 07:48 Dose: 25 mcg Home Medications ?Medication ?Instructions ?Recorded ?Confirmed ?Last Taken ?Type multivitamin 1 tab PO DAILY 03/27/21 11/03/24 11/01/24 History pyridoxine (vitamin B6) 50 mg 50 mg PO DAILY 11/27/21 11/03/24 11/01/24 History tablet Physical Exam Vital Signs: Last Vital Signs Temp 97.8 F 11/06/24 15:07 Pulse 70 11/06/24 15:07 Resp 18 11/06/24 15:07 BP 121/70 11/06/24 15:07 Pulse Ox 97 11/06/24 15:19 O2 Del Method Room Air 11/06/24 15:19 BMI result Body Mass Index 38.7 General: Middle-aged male not in any distress, ill appearing and tired appearing Nutritional Appearance: well nourished and overweight Eyes: appearance normal, both eyes and all related structures; Alignment and Position: alignment normal and position normal Neck: No lymphadenopathy, no thyromegaly Resp: bilateral air entry equal, occasional added sounds present Cardio: Regular rate, regular rhythm; Heart sounds: S1 normal heart sound present and S2 normal heart sound present GI: soft, nontender, no guarding, no hepatosplenomegaly : bladder normal to inspection, bladder normal to palpation, no renal angle tenderness Skin: no rashes or lesions noted and elasticity normal high upper right thigh redness present but patient says this is better than before Neuro: oriented to person, oriented to place, oriented to time and moves all extremities Neuro Cranial nerves: Yes Normal hearing present Results Lab Results 11/06/24 05:42 11/06/24 05:42 Lab results: Chemistry 11/04/24 11/05/24 11/05/24 03:44 05:46 07:59 Sodium 145 140 Potassium 3.2 L 4.2 D Carbon Dioxide 25 26 BUN 8 L 22 H Creatinine 0.73 Cancelled 2.99 H Calcium 8.7 8.7 11/06/24 05:42 Sodium 142 Potassium 4.1 Carbon Dioxide 23 BUN 26 H Creatinine 4.35 H* Calcium 8.7 Hematology 11/04/24 11/05/24 11/06/24 03:44 05:46 05:42 WBC 13.1 H 12.9 H 11.0 H Hgb 10.1 L 9.7 L 9.4 L Plt Count 213 230 253 Urinalysis 11/05/24 21:00 Urine Color Yellow Urine Appearance Clear Urine pH 6.0 Ur Specific [place] <= 1.005 Urine Protein 30 (1+) H Urine Glucose (UA) Negative Urine Ketones Negative Urine Blood Moderate (2+) H Urine Nitrite Negative Ur Leukocyte Esterase Small (1+) H Urine RBC 11-20 H Urine WBC 6-10 H Ur Squamous Epith Cells 0-2 Hyaline Casts 0-2 Urine Studies 11/05/24 21:00 Urine Creatinine 43.87 Assessment and Plan (1) Hypertension: Qualifiers: Hypertension type: essential hypertension Qualified Code(s): I10 - Essential (primary) hypertension Status: Acute (2) Acute kidney injury: Status: Acute (3) Type 2 diabetes mellitus with hyperglycemia: Qualifiers: Diabetes mellitus long term care administrator insulin use: without penitentiary use Qualified Code(s): E11.65 - Type 2 diabetes mellitus with hyperglycemia Status: Acute Plan Acute kidney injury: Possibly secondary to a combination of hypotension and contrast induced nephropathy. Unlikely to be the vancomycin toxicity as the vancomycin levels are not too high enough to cause toxicity. Urinalysis showed some blood, 11 - 20 RBCs, 6-10 WBCs. No proteinuria in September 2024, urine eosinophils negative Continue IV fluid with a LR Closely monitor renal functions, avoiding nephrotoxic medications. Has history of renal calculi and RBCs in the urine. We will get ultrasound renal bilateral rule out obstructive uropathy. We will continue to closely follow up with the patient, currently he does not have any symptoms explained patient about the renal function trajectory of the ATN. Procedures Date of Service Date of Service: 11/06/24
[2024-11-06] MEDS: Enoxaparin Sodium 30 MG/0.3 ML SYRINGE SUBCUT (16:28)
[2024-11-06 19:26] VITALS: BP 120/68; RESP 18; TEMP 37.2; O2SAT 96
[2024-11-06] MEDS: polyethylene glycoL 3350 17 GM POWD.PACK PO (19:26)
[2024-11-06 20:25] LABS: Glucose, Whole Blood 116 mg/dL (60-115)
[2024-11-07 03:12] VITALS: BP 110/63; PULSE 69; RESP 18; TEMP 36.4; O2SAT 94
[2024-11-07] MEDS: oxyCODONE HCl Immed Release 5 MG TABLET PO ×3 (04:45→20:00)
[2024-11-07] MEDS: Clindamycin Phosphate/D5W 600 MG/50 ML PIGGYBACK 100 MG IV ×4 (04:46→23:13)
[2024-11-07 07:19] LABS: Vancomycin Random 16.3 mcg/mL (15-20)
[2024-11-07 07:20] LABS: Glucose, Whole Blood 88 mg/dL (60-115)
[2024-11-07] MEDS: Lactated Ringers 1,000 ML 100 ML IVCONT (07:22)
[2024-11-07] MEDS: Pyridoxine HCl (Vitamin B6) 50 MG TABLET PO (07:24)
[2024-11-07] MEDS: Cholecalciferol (Vitamin D3) 25 MCG TABLET PO (07:24)
[2024-11-07] MEDS: 0.9 % Sodium Chloride Flush 3 ML SYRINGE IVFLUSH ×3 (07:25→23:14)
[2024-11-07] MEDS: Multivitamin TABLET 1 TAB PO (07:25)
[2024-11-07 07:32] LABS: Anion Gap 14 (12-20); Blood Urea Nitrogen 27 mg/dL (9-16); Calcium 8.6 mg/dL (8.4-10.2); Carbon Dioxide 25 mmol/L (22-29); Chloride 108 mmol/L (96-108); Creatinine Clr Calc Pharmacy 24.7; Estimated Glomerular Filt Rate 13; Glucose Random 91 mg/dL (60-115); Potassium 4.5 mmol/L (3.3-5.1); Sodium 142 mmol/L (135-145)
--- NOTE | 2024-11-07 07:34 | PC.NURSE ---
Bilateral pedal edema new since yesterday,Dr. Sanchez notified
[2024-11-07 08:00] VITALS: BP 119/79; PULSE 68; RESP 16; TEMP 36.7; O2SAT 96
[2024-11-07] MEDS: ondansetron HCL 4 MG/2 ML VIAL IVPUSH (08:39)
[2024-11-07] MEDS: Morphine Sulfate 4 MG/ML CARTRIDGE 3 MG IVPUSH (08:40)
--- NOTE | 2024-11-07 10:15 | HO.POSTANES ---
Post Anesthesia Evaluation Post Anesthesia Evaluation Date of Service: 11/07/24 Vital Signs: Vital Signs Temp Pulse Resp BP Pulse Ox O2 Del Method 11/07/24 08:00 98.1 F 68 16 119/79 96 Room Air 11/07/24 03:12 97.5 F 69 18 110/63 94 Room Air Anesthesia: General LMA Mental Status: Awake Pain Control: Satisfactory Nausea/Vomiting: None Hydration: Adequate Anesthesia-Related Issues: No Anes. Related Issues
[2024-11-07 11:24] LABS: Glucose, Whole Blood 92 mg/dL (60-115)
--- NOTE | 2024-11-07 11:29 | PC.NURSE ---
Patient refused alarms for fall precautions,encouraged pt to ask for assistance
--- NOTE | 2024-11-07 11:54 | P.PNGS_ITS ---
Subjective Subjective Date of Service: 11/07/24 Interval history: States that he continues to feel much better, Much less pain and says he does not really asked for morphine anymore No fever Physical Exam 2 Vital Signs: Vital Signs: Last Vital Signs Temp 98.1 F 11/07/24 08:00 Pulse 68 11/07/24 08:00 Resp 16 11/07/24 08:00 BP 119/79 11/07/24 08:00 Pulse Ox 96 11/07/24 08:00 O2 Del Method Room Air 11/07/24 08:00 BMI result Body Mass Index 38.7 Const: General: comfortable and no acute distress Cardio: Rate: regular rate GI: Palpation (GI): Soft to palpation Extrem: Other: Right buttock and right thigh debridement site with significant improvement of induration and cellulitis; I removed all his packing and changed this into wet-to-dry with normal saline; I applied thick dressings Objective Data Active Medications Acetaminophen (Acetaminophen 325 Mg Tablet) 650 mg PO Q6H PRN PRN Reason: Pain, Mild 1-3,fever,headache Last Admin: 11/04/24 15:41 Dose: 650 mg Documented By: ELIANA Calcium Carbonate (Calcium Carbonate 750 Mg Tab.Chew) 750 mg PO Q4H PRN PRN Reason: Heartburn Last Admin: 11/05/24 10:05 Dose: 750 mg Documented By: DEYVI Enoxaparin Sodium (Enoxaparin Sodium 30 Mg/0.3 Ml Syringe) 30 mg SUBCUT Q24H [facility] Last Admin: 11/06/24 16:28 Dose: 30 mg Documented By: OLYA Clindamycin Phosphate (Cleocin) 600 mg in 50 mls @ 100 mls/hr IV Q6H [facility] Last Infusion: 11/07/24 11:24 Dose: Infused Documented By: OLYA Insulin Human Lispro (Insulin Lispro 100 Unit/Ml 3 Ml Vial) 0 unit SUBCUT TIDAC PRN; Protocol PRN Reason: hyperglycemia Magnesium Hydroxide (Milk Of Magnesia 30 Ml Oral.Susp) 30 ml PO DAILY PRN PRN Reason: Constipation Last Admin: 11/06/24 05:03 Dose: 30 ml Documented By: TUMASY Melatonin (Melatonin 3 Mg Tablet) 6 mg PO BEDTIME PRN PRN Reason: Insomnia Morphine Sulfate (Morphine Sulfate 4 Mg/Ml Cartridge) 3 mg IVPUSH Q3H PRN; Protocol PRN Reason: Pain, Severe (Pain Scale 7-10) Last Admin: 11/07/24 08:40 Dose: 3 mg Documented By: OLYA Multivitamins/Vitamin C (Multivitamin Tablet) 1 tab PO DAILY [facility] Last Admin: 11/07/24 07:25 Dose: 1 tab Documented By: OLYA Ondansetron HCl (Ondansetron Hcl 4 Mg/2 Ml Vial) 4 mg IVPUSH Q8H PRN PRN Reason: Nausea and Vomiting Last Admin: 11/07/24 08:39 Dose: 4 mg Documented By: OLYA Oxycodone HCl (Oxycodone Hcl Immed Release 5 Mg Tablet) 5 mg PO Q6H PRN PRN Reason: Pain, Severe (Pain Scale 7-10) Last Admin: 11/07/24 04:45 Dose: 5 mg Documented By: CASTILLO Polyethylene Glycol (Polyethylene Glycol 3350 17 Gm Powd.Pack) 17 gm PO DAILY PRN PRN Reason: Constipation Last Admin: 11/06/24 19:26 Dose: 17 gm Documented By: XU Pyridoxine HCl (Pyridoxine Hcl (Vitamin B6) 50 Mg Tablet) 50 mg PO DAILY [facility] [place] Last Admin: 11/07/24 07:24 Dose: 50 mg Documented By: OLYA Sodium Chloride (0.9 % Sodium Chloride Flush 3 Ml Syringe) 3 ml IVFLUSH QSHIFT [facility] Last Admin: 11/07/24 07:25 Dose: 3 ml Documented By: OLYA Vitamin D (Cholecalciferol (Vitamin D3) 25 Mcg Tablet) 25 mcg PO DAILY [facility] Last Admin: 11/07/24 07:24 Dose: 25 mcg Documented By: OLYA Labs 11/06/24 05:42 11/07/24 06:37 Labs: Laboratory Results - last 24 hr 11/06/24 11/06/24 11/07/24 16:04 19:25 06:37 Hold Purple Top SEE NOTE Anion Gap 14 Estim Creat Clear Calc 24.7 Estimated GFR 13 POC Glucose 91 116 H Random Glucose 91 Calcium 8.6 Random Vancomycin 16.3 11/07/24 11/07/24 07:15 11:20 Hold Purple Top Anion Gap Estim Creat Clear Calc Estimated GFR POC Glucose 88 92 Random Glucose Calcium Random Vancomycin Microbiology Microbiology Results: Microbiology 11/05/24 15:55 Gram Stain - Final Thigh Right Routine Culture - Preliminary Staphylococcus aureus Procedures Date of Service Date of Service: 11/07/24 Progress Note: A&P Assessment and plan (1) Abscess and cellulitis of gluteal region: Status: Acute Assessment and Plan: Status post I&D of perianal abscess and status post I and D and debridement of a right thigh abscess I changed his packing and applied thick dressings The cellulitis has resolved and the induration has improved significantly He says he feels much better as well and does not ask for pain medications anymore His creatinine is still elevated likely from vanco versus IV contrast Continue wound care Time Spent With Patient Time: Total time managing care of this patient today ____ minutes. Quality Stroke Does the patient have a stroke diagnosis?: No VTE Prior VTE?: No VTE Risk Level:: Medical - moderate - high VTE Device Contraindication: Treatment Not Indicated VTE Drug Contraindication: N/A - Med Ordered
--- NOTE | 2024-11-07 13:17 | HO.PM.IMPN ---
Subjective Subjective Date of Service: 11/07/24 Interval History: seen and evaluated wound site improving growing MRSA in wound having more edema in LE JOSE A and Cr worsening no other events Review of Systems Review of Systems: Yes all other systems are reviewed and are negative Physical Exam Vital Signs: Vital Signs: Last Vital Signs Temp 98.1 F 11/07/24 08:00 Pulse 68 11/07/24 08:00 Resp 16 11/07/24 08:00 BP 119/79 11/07/24 08:00 Pulse Ox 96 11/07/24 08:00 O2 Del Method Room Air 11/07/24 08:00 BMI result Body Mass Index 38.7 Const: Other: Constitutional : interactive, not in distress Cardiovascular : no JVP, +1 bilateral lower extremity edema Respiratory : bilateral chest movement, not in resp distress Gastrointestinal: soft, lax, Non tender Skin : Warm, Dry, open wound in right thigh with drainage, improving erythema and warmth Neurological : Alert & oriented , No focal deficit Objective Data Active Medications Acetaminophen (Acetaminophen 325 Mg Tablet) 650 mg PO Q6H PRN PRN Reason: Pain, Mild 1-3,fever,headache Last Admin: 11/04/24 15:41 Dose: 650 mg Documented By: DABRonen Calcium Carbonate (Calcium Carbonate 750 Mg Tab.Chew) 750 mg PO Q4H PRN PRN Reason: Heartburn Last Admin: 11/05/24 10:05 Dose: 750 mg Documented By: DEYVI Enoxaparin Sodium (Enoxaparin Sodium 30 Mg/0.3 Ml Syringe) 30 mg SUBCUT Q24H [facility] Last Admin: 11/06/24 16:28 Dose: 30 mg Documented By: OLYA Clindamycin Phosphate (Cleocin) 600 mg in 50 mls @ 100 mls/hr IV Q6H [facility] Last Infusion: 11/07/24 11:24 Dose: Infused Documented By: OLYA Insulin Human Lispro (Insulin Lispro 100 Unit/Ml 3 Ml Vial) 0 unit SUBCUT TIDAC PRN; Protocol PRN Reason: hyperglycemia Magnesium Hydroxide (Milk Of Magnesia 30 Ml Oral.Susp) 30 ml PO DAILY PRN PRN Reason: Constipation Last Admin: 11/06/24 05:03 Dose: 30 ml Documented By: TUMASY Melatonin (Melatonin 3 Mg Tablet) 6 mg PO BEDTIME PRN PRN Reason: Insomnia Morphine Sulfate (Morphine Sulfate 4 Mg/Ml Cartridge) 3 mg IVPUSH Q3H PRN; Protocol PRN Reason: Pain, Severe (Pain Scale 7-10) Last Admin: 11/07/24 08:40 Dose: 3 mg Documented By: OLYA Multivitamins/Vitamin C (Multivitamin Tablet) 1 tab PO DAILY [facility] Last Admin: 11/07/24 07:25 Dose: 1 tab Documented By: OLYA Ondansetron HCl (Ondansetron Hcl 4 Mg/2 Ml Vial) 4 mg IVPUSH Q8H PRN PRN Reason: Nausea and Vomiting Last Admin: 11/07/24 08:39 Dose: 4 mg Documented By: OLYA Oxycodone HCl (Oxycodone Hcl Immed Release 5 Mg Tablet) 5 mg PO Q6H PRN PRN Reason: Pain, Severe (Pain Scale 7-10) Last Admin: 11/07/24 12:50 Dose: 5 mg Documented By: OLYA Polyethylene Glycol (Polyethylene Glycol 3350 17 Gm Powd.Pack) 17 gm PO DAILY PRN PRN Reason: Constipation Last Admin: 11/06/24 19:26 Dose: 17 gm Documented By: XU Pyridoxine HCl (Pyridoxine Hcl (Vitamin B6) 50 Mg Tablet) 50 mg PO DAILY [facility] Last Admin: 11/07/24 07:24 Dose: 50 mg Documented By: OLYA Sodium Chloride (0.9 % Sodium Chloride Flush 3 Ml Syringe) [address] [facility] Last Admin: 11/07/24 07:25 Dose: 3 ml Documented By: OLYA Vitamin D (Cholecalciferol (Vitamin D3) 25 Mcg Tablet) 25 mcg PO DAILY [facility] Last Admin: 11/07/24 07:24 Dose: 25 mcg Documented By: OLYA Labs 11/06/24 05:42 11/07/24 06:37 Labs: Laboratory Results - last 24 hr 11/06/24 11/06/24 11/07/24 16:04 19:25 06:37 Hold Purple Top SEE NOTE Anion Gap 14 Estim Creat Clear Calc 24.7 Estimated GFR 13 POC Glucose 91 116 H Random Glucose 91 Calcium 8.6 Random Vancomycin 16.3 11/07/24 11/07/24 07:15 11:20 Hold Purple Top Anion Gap Estim Creat Clear Calc Estimated GFR POC Glucose 88 92 Random Glucose Calcium Random Vancomycin Microbiology Microbiology Results: Microbiology 11/05/24 15:55 Gram Stain - Final Thigh Right Routine Culture - Preliminary Staphylococcus aureus Assessment and Plan (1) Acute kidney injury: Status: Acute (2) Sepsis: Status: Acute (3) Abscess and cellulitis of gluteal region: Status: Acute Plan 48-year-old male with a past medical history of hypertension, gout, hyperlipidemia, anxiety, documented history of PVD and tremors presented to the ED after a 4 day history of right groin / thigh pain and swelling. Sepsis 2/2 Cellulitis/abscess right posterior thigh surgery consulted, status post I and D and debridement of a right thigh abscess cellulitis resolving, induration improving blood Cultures negative wound cx growing MRSA DC IV vancomycin and Zosyn for JOSE A and high Vanco trough Keep on Clindamycin IV for now Pain management with Tylenol, and oxycodone as needed. follow Vancomycin trough Acute kidney injury Cr worsening to 4.7 today, making urine, no signs of uremia likely ATN from IV Contrast, hypotension, medications urine studies Hold Nephrotoxins IVF follow I\O nephro consult appreciated, can use Lasix for fluid overload Vancomycin toxicity max 29, trending down to 16 DC Vanco and trend levels Type 2 diabetes Blood glucose checks q.i.d., lispro sliding scale for blood glucose control A1c 5.8 Gout hold allopurinol. Patient is a full code DVT prophylaxis with Lovenox Quality Stroke Does the patient have a stroke diagnosis?: No VTE Prior VTE?: No VTE Risk Level:: Medical - moderate - high VTE Device Contraindication: Treatment Not Indicated VTE Drug Contraindication: N/A - Med Ordered
[2024-11-07 15:00] VITALS: O2SAT 98
[2024-11-07 15:31] VITALS: BP 113/64; PULSE 79; RESP 18; TEMP 36.8; O2SAT 99
[2024-11-07] MEDS: Furosemide 20 MG/2 ML VIAL IVPUSH (15:45)
[2024-11-07] MEDS: Enoxaparin Sodium 30 MG/0.3 ML SYRINGE SUBCUT (15:49)
[2024-11-07 16:05] LABS: Glucose, Whole Blood 130 mg/dL (60-115)
[2024-11-07 19:13] VITALS: BP 126/75; PULSE 68; RESP 18; TEMP 36.6; O2SAT 100
[2024-11-07 21:22] LABS: Glucose, Whole Blood 127 mg/dL (60-115)
[2024-11-08 03:28] VITALS: BP 119/62; PULSE 78; RESP 20; TEMP 37.3; O2SAT 95
[2024-11-08] MEDS: Clindamycin Phosphate/D5W 600 MG/50 ML PIGGYBACK 100 MG IV ×4 (05:19→21:31)
[2024-11-08 06:15] LABS: MANUAL DIFF FLAG NO
[2024-11-08 06:52] LABS: Anion Gap 13 (12-20); Blood Urea Nitrogen 29 mg/dL (9-16); Calcium 8.6 mg/dL (8.4-10.2); Carbon Dioxide 28 mmol/L (22-29); Chloride 108 mmol/L (96-108); Creatinine Clr Calc Pharmacy 24.5; Estimated Glomerular Filt Rate 13; Glucose Random 93 mg/dL (60-115); Potassium 4.6 mmol/L (3.3-5.1); Sodium 144 mmol/L (135-145)
[2024-11-08 07:03] LABS: Basophils Absolute Auto 0.1 X10*3/uL (0.0-0.2); Basophils Percent Auto 0.4 % (0-2); Eosinophils Absolute Auto 0.2 X10*3/uL (0.0-0.4); Eosinophils Percent Auto 1.5 % (0-4); Hematocrit 28.9 % (42.0-52.0); Hemoglobin 9.2 g/dl (14.0-18.0); Imm Gran Abs Auto 0.35 X10*3/uL (0.00-0.03); Lymphocytes Absolute Auto 1.4 X10*3/uL (1.2-4.9); Lymphocytes Percent Auto 11.8 % (20-40); Mean Corpuscular HGB Conc 31.8 g/dl (31.0-36.0); Mean Corpuscular Volume 87.8 fL (80.0-98.0); Mean Platelet Volume 9.5 fL (9.4-12.4); Monocytes Absolute Auto 0.8 X10*3/uL (0.1-1.2); Monocytes Percent Auto 6.5 % (2-11); Neutrophils Absolute Auto 9.1 x10*3/uL (2.0-8.3); Neutrophils Percent Auto 76.8 % (45-73); Platelet Count 261 X10*3/uL (160-400); Red Blood Count 3.29 X10*6/uL (4.60-5.80); Red Cell Distribution Width 14.9 % (11.0-16.0); White Blood Count 11.8 X10*3/uL (4.8-10.8)
[2024-11-08] MEDS: Pyridoxine HCl (Vitamin B6) 50 MG TABLET PO (07:11)
[2024-11-08] MEDS: Multivitamin TABLET 1 TAB PO (07:11)
[2024-11-08] MEDS: 0.9 % Sodium Chloride Flush 3 ML SYRINGE IVFLUSH ×3 (07:11→21:31)
[2024-11-08] MEDS: Cholecalciferol (Vitamin D3) 25 MCG TABLET PO (07:11)
[2024-11-08] MEDS: oxyCODONE HCl Immed Release 5 MG TABLET PO ×2 (07:12→13:58)
[2024-11-08 07:17] LABS: Glucose, Whole Blood 91 mg/dL (60-115)
[2024-11-08 07:59] VITALS: BP 142/73; PULSE 73; RESP 18; TEMP 36.9; O2SAT 99
[2024-11-08] MEDS: Morphine Sulfate 4 MG/ML CARTRIDGE 3 MG IVPUSH ×2 (08:26→21:30)
--- NOTE | 2024-11-08 09:16 | PM.PNGS ---
Subjective Subjective Date of Service: 11/08/24 <Pebbles Barrett PA-C - Last Filed: 11/08/24 09:21> 11/08/24 <Michael Timmons MD - Last Filed: 11/08/24 09:56> Interval history: Taking oxycodone for pain which helps. Biggest complaint is foot pain and pain in his big toe. Was taken off of meds for gout due to kidney function. <Pebbles Barrett PA-C - Last Filed: 11/08/24 09:21> Physical Exam Vital Signs: Vital Signs: Last Vital Signs Temp 98.5 F 11/08/24 07:59 Pulse 73 11/08/24 07:59 Resp 18 11/08/24 07:59 BP 142/73 H 11/08/24 07:59 Pulse Ox 99 11/08/24 07:59 O2 Del Method Room Air 11/08/24 07:59 BMI result Body Mass Index 38.7 <Pebbles Barrett PA-C - Last Filed: 11/08/24 09:21> Const: General: comfortable, no acute distress and alert <Pebbles Barrett PA-C - Last Filed: 11/08/24 09:21> Orientation/consciousness: patient oriented x3 <BONIFACIO Johnson Last Filed: 11/08/24 09:21> Skin: Other: right groin debridement site clean appearing, no necrosis, significant surrounding induration tissue and erythema into right anterior thigh persists but slowly improving <Pebbles Barrett PA-C - Last Filed: 11/08/24 09:21> Neuro: General: patient oriented x3 <Pebbles Barrett PA-C - Last Filed: 11/08/24 09:21> Objective Data Active Medications Acetaminophen (Acetaminophen 325 Mg Tablet) 650 mg PO Q6H PRN PRN Reason: Pain, Mild 1-3,fever,headache Last Admin: 11/04/24 15:41 Dose: 650 mg Documented By: ELIANA Calcium Carbonate (Calcium Carbonate 750 Mg Tab.Chew) 750 mg PO Q4H PRN PRN Reason: Heartburn Last Admin: 11/05/24 10:05 Dose: 750 mg Documented By: DEYVI Enoxaparin Sodium (Enoxaparin Sodium 30 Mg/0.3 Ml Syringe) 30 mg SUBCUT Q24H [facility] Last Admin: 11/07/24 15:49 Dose: 30 mg Documented By: OLYA Clindamycin Phosphate (Cleocin) 600 mg in 50 mls @ 100 mls/hr IV Q6H [facility] Last Infusion: 11/08/24 05:49 Dose: Infused Documented By: KEON Insulin Human Lispro (Insulin Lispro 100 Unit/Ml 3 Ml Vial) 0 unit SUBCUT TIDAC PRN; Protocol PRN Reason: hyperglycemia Magnesium Hydroxide (Milk Of Magnesia 30 Ml Oral.Susp) 30 ml PO DAILY PRN PRN Reason: Constipation Last Admin: 11/06/24 05:03 Dose: 30 ml Documented By: XU Melatonin (Melatonin 3 Mg Tablet) 6 mg PO BEDTIME PRN PRN Reason: Insomnia Morphine Sulfate (Morphine Sulfate 4 Mg/Ml Cartridge) 3 mg IVPUSH Q3H PRN; Protocol PRN Reason: Pain, Severe (Pain Scale 7-10) Last Admin: 11/08/24 08:26 Dose: 3 mg Documented By: BRIDGET Multivitamins/Vitamin C (Multivitamin Tablet) 1 tab PO DAILY [facility] Last Admin: 11/08/24 07:11 Dose: 1 tab Documented By: MARVEL Ondansetron HCl (Ondansetron Hcl 4 Mg/2 Ml Vial) 4 mg IVPUSH Q8H PRN PRN Reason: Nausea and Vomiting Last Admin: 11/07/24 08:39 Dose: 4 mg Documented By: OLYA Oxycodone HCl (Oxycodone Hcl Immed Release 5 Mg Tablet) 5 mg PO Q6H PRN PRN Reason: Pain, Severe (Pain Scale 7-10) Last Admin: 11/08/24 07:12 Dose: 5 mg Documented By: MARVEL Polyethylene Glycol (Polyethylene Glycol 3350 17 Gm Powd.Pack) 17 gm PO DAILY PRN PRN Reason: Constipation Last Admin: 11/06/24 19:26 Dose: 17 gm Documented By: XU Pyridoxine HCl (Pyridoxine Hcl (Vitamin B6) 50 Mg Tablet) 50 mg PO DAILY [facility] Last Admin: 11/08/24 07:11 Dose: 50 mg Documented By: MARVEL Sodium Chloride (0.9 % Sodium Chloride Flush 3 Ml Syringe) 3 ml IVFLUSH QSHIFT [facility] Last Admin: 11/08/24 07:11 Dose: 3 ml Documented By: MARVEL Vitamin D (Cholecalciferol (Vitamin D3) 25 Mcg Tablet) 25 mcg PO DAILY [facility] Last Admin: 11/08/24 07:11 Dose: 25 mcg Documented By: MARVEL <Pebbles Barrett PA-C - Last Filed: 11/08/24 09:21> Labs CBC & Chem 7: 11/08/24 05:27 11/08/24 05:27 <Pebbles Barrett PA-C - Last Filed: 11/08/24 09:21> Labs: Laboratory Results - last 24 hr 11/07/24 11/07/24 11/07/24 11:20 16:01 21:17 MCV MCH MCHC RDW Plt Count MPV Immature Gran % (Auto) Neut % (Auto) Lymph % (Auto) [place] % (Auto) Eos % (Auto) Baso % (Auto) Lymph # (Auto) [place] # (Auto) Eos # (Auto) Baso # (Auto) Abs Immat Gran (auto) Absolute Neuts (auto) Absolute Nucleated RBC Nucleated RBC % (auto) Anion Gap Estim Creat Clear Calc Estimated GFR POC Glucose 92 130 H 127 H Random Glucose Calcium 11/08/24 11/08/24 05:27 07:10 MCV 87.8 MCH 28.0 MCHC 31.8 RDW 14.9 Plt Count 261 MPV 9.5 Immature Gran % (Auto) 3.0 H Neut % (Auto) 76.8 H Lymph % (Auto) 11.8 L [place] % (Auto) 6.5 Eos % (Auto) 1.5 Baso % (Auto) 0.4 Lymph # (Auto) 1.4 [place] # (Auto) 0.8 Eos # (Auto) 0.2 Baso # (Auto) 0.1 Abs Immat Gran (auto) 0.35 H Absolute Neuts (auto) 9.1 H Absolute Nucleated RBC 0.000 Nucleated RBC % (auto) 0.0 Anion Gap 13 Estim Creat Clear Calc 24.5 Estimated GFR 13 POC Glucose 91 Random Glucose 93 Calcium 8.6 <Pebbles Barrett PA-C - Last Filed: 11/08/24 09:21> Microbiology Microbiology Results: Microbiology 11/05/24 15:55 Gram Stain - Final Thigh Right Routine Culture - Final Methicillin Res Staph Aureus <Pebbles Barrett PA-C - Last Filed: 11/08/24 09:21> Procedures Date of Service Date of Service: 11/08/24 <Pebbles Barrett PA-C - Last Filed: 11/08/24 09:21> 11/08/24 <Michael Timmons MD - Last Filed: 11/08/24 09:56> Progress Note: A&P Assessment and plan (1) Acute kidney injury: Status: Acute <Pebbles Barrett PA-C - Last Filed: 11/08/24 09:21> Assessment and Plan: Feels well with regards to abscess site Dressings changed Area much improved Creatinine hopefully has plateaued Continue current care Seen and examined independently <Michael Timmons MD - Last Filed: 11/08/24 09:56> (2) Abscess and cellulitis of gluteal region: Status: Acute <Pebbles Barrett PA-C - Last Filed: 11/08/24 09:21> Assessment and Plan: Status post I&D of perianal abscess and s/p I&D and debridement of a right thigh abscess Dressing changed this AM- area continues to improve without further need for intervention Cont daily dressing changes with wet to dry saline soaked fluff packing to anterior groin wound followed by dry fluffs, abd pad, mesh underwear Cr slightly worse today, nephrology on board Will need f/u with outpatient wound care center <Pebbles Barrett PA-C - Last Filed: 11/08/24 09:21> Time Spent With Patient Time: Total time managing care of this patient today ____ minutes. <Pebbles Barrett PA-C - Last Filed: 11/08/24 09:21> Quality Stroke Does the patient have a stroke diagnosis?: No <Pebbles Barrett PA-C - Last Filed: 11/08/24 09:21> VTE Prior VTE?: No <BONIFACIO Johnson Last Filed: 11/08/24 09:21> VTE Risk Level:: Medical - moderate - high <Pebbles Barrett PA-C - Last Filed: 11/08/24 09:21> VTE Device Contraindication: Treatment Not Indicated <BONIFACIO Johnson Last Filed: 11/08/24 09:21> VTE Drug Contraindication: N/A - Med Ordered <Pebbles Barrett PA-C - Last Filed: 11/08/24 09:21>
[2024-11-08] MEDS: Furosemide 20 MG/2 ML VIAL IVPUSH (10:18)
[2024-11-08 11:17] LABS: Glucose, Whole Blood 83 mg/dL (60-115)
--- NOTE | 2024-11-08 11:44 | P.PNNP_ITS ---
Subjective Subjective Date of Service: 11/08/24 Interval history: Events noted. All recent data reviewed. Serum creatinine plateauing Physical Exam 2 Vital Signs: Vital Signs: Last Vital Signs Temp 98.5 F 11/08/24 07:59 Pulse 73 11/08/24 07:59 Resp 18 11/08/24 07:59 BP 142/73 H 11/08/24 07:59 Pulse Ox 99 11/08/24 07:59 O2 Del Method Room Air 11/08/24 07:59 BMI result Body Mass Index 38.7 Const: General: no acute distress Orientation/consciousness: patient oriented x3 Neck: Neck: Yes supple Resp: Auscultation: diminished lung sounds Cardio: Rate: regular rate GI: Palpation (GI): Soft to palpation Neuro: General: patient oriented x3 Objective Data Labs 11/08/24 05:27 11/08/24 05:27 Labs: Laboratory Results - last 24 hr 11/07/24 11/07/24 11/08/24 16:01 21:17 05:27 WBC 11.8 H RBC 3.29 L Hgb 9.2 L Hct 28.9 L MCV 87.8 MCH 28.0 MCHC 31.8 RDW 14.9 Plt Count 261 MPV 9.5 Immature Gran % (Auto) 3.0 H Neut % (Auto) 76.8 H Lymph % (Auto) 11.8 L [place] % (Auto) 6.5 Eos % (Auto) 1.5 Baso % (Auto) 0.4 Lymph # (Auto) 1.4 [place] # (Auto) 0.8 Eos # (Auto) 0.2 Baso # (Auto) 0.1 Abs Immat Gran (auto) 0.35 H Absolute Neuts (auto) 9.1 H Absolute Nucleated RBC 0.000 Nucleated RBC % (auto) 0.0 Sodium 144 Potassium 4.6 Chloride 108 Carbon Dioxide 28 Anion Gap 13 BUN 29 H Creatinine 4.73 H* Estim Creat Clear Calc 24.5 Estimated GFR 13 POC Glucose 130 H 127 H Random Glucose 93 Calcium 8.6 11/08/24 11/08/24 07:10 11:07 WBC RBC Hgb Hct MCV MCH MCHC RDW Plt Count MPV Immature Gran % (Auto) Neut % (Auto) Lymph % (Auto) [place] % (Auto) Eos % (Auto) Baso % (Auto) Lymph # (Auto) [place] # (Auto) Eos # (Auto) Baso # (Auto) Abs Immat Gran (auto) Absolute Neuts (auto) Absolute Nucleated RBC Nucleated RBC % (auto) Sodium Potassium Chloride Carbon Dioxide Anion Gap BUN Creatinine Estim Creat Clear Calc Estimated GFR POC Glucose 91 83 Random Glucose Calcium Microbiology Microbiology Results: Microbiology 11/03/24 08:44 Blood - Venous Blood Culture - Final No growth after 5 days. 11/03/24 08:44 Blood - Venous Blood Culture - Final No growth after 5 days. 11/05/24 15:55 Thigh Right Gram Stain - Final 11/05/24 15:55 Thigh Right Routine Culture - Final Methicillin Res Staph Aureus 11/03/24 12:28 Groin Gram Stain - Final 11/03/24 12:28 Groin Routine Culture - Final Methicillin Res Staph Aureus Procedures Date of Service Date of Service: 11/08/24 Assessment & Plan Assessment and plan (1) Acute kidney injury: Status: Acute Plan Acute kidney injury due to tubular injury- likely multifactorial (combination of hypotension and contrast induced nephropathy with high vancomycin level) Urinalysis showed some blood, 11 - 20 RBCs, 6-10 WBCs. No proteinuria in September 2024, urine eosinophils negative No reason to suspect obstructive uropathy; Serum creatinine plateauing; No indication for renal replacement Continue current supportive care for now; Labs AM Progress Note: Quality Stroke Does the patient have a stroke diagnosis?: No
--- NOTE | 2024-11-08 13:20 | MHC.CM.PN ---
Patient not medically cleared for dc. CM will continue to follow.
--- NOTE | 2024-11-08 13:38 | HO.WOUND ---
Wound Consult: Initial 48yr old?[place] [facility] [place] See progress notes and H&P for detailed history.? Wound consult placed for Right Inner Thigh Abscess site.?Chart review reveals patient is treated and followed by [facility] team who performed the I7D. Will defer topical orders to their team. Chart review reveals BREONNA Beltrán saw patient and performed dressing change today with the following topical recommendations. Dressing changed this AM- area continues to improve without further need for intervention Cont daily dressing changes with wet to dry saline soaked fluff packing to anterior groin wound followed by dry fluffs, abd pad, mesh underwear. Will update for direct care team to have topical orders to carry out in worklist. Recommendations: 1. Defer to [facility] team for topical orders Right Inner Thigh - Cleanse and irrigate with Saline, pat dry. Lightly pack wound bed with wet to dry saline soaked fluff packing to anterior groin wound followed by dry fluffs, abd pad, mesh underwear. Change Daily.
[2024-11-08 15:00] VITALS: O2SAT 98
--- NOTE | 2024-11-08 15:04 | HO.PM.IMPN ---
Subjective Subjective Date of Service: 11/08/24 Interval History: seen and evaluated wound site improving having less edema in LE JOSE A and Cr stabilizing no other events Review of Systems Review of Systems: Yes all other systems are reviewed and are negative Physical Exam Vital Signs: Vital Signs: Last Vital Signs Temp 98.5 F 11/08/24 07:59 Pulse 73 11/08/24 07:59 Resp 18 11/08/24 07:59 BP 142/73 H 11/08/24 07:59 Pulse Ox 98 11/08/24 15:00 O2 Del Method Room Air 11/08/24 15:00 BMI result Body Mass Index 38.7 Const: Other: Constitutional : interactive, not in distress Cardiovascular : no JVP, +1 bilateral lower extremity edema Respiratory : bilateral chest movement, not in resp distress Gastrointestinal: soft, lax, Non tender Skin : Warm, Dry, open wound in right thigh with drainage, improving erythema and warmth Neurological : Alert & oriented , No focal deficit Objective Data Active Medications Acetaminophen (Acetaminophen 325 Mg Tablet) 650 mg PO Q6H PRN PRN Reason: Pain, Mild 1-3,fever,headache Last Admin: 11/04/24 15:41 Dose: 650 mg Documented By: DABRonen Calcium Carbonate (Calcium Carbonate 750 Mg Tab.Chew) 750 mg PO Q4H PRN PRN Reason: Heartburn Last Admin: 11/05/24 10:05 Dose: 750 mg Documented By: DEYVI Enoxaparin Sodium (Enoxaparin Sodium 30 Mg/0.3 Ml Syringe) 30 mg SUBCUT Q24H [facility] Last Admin: 11/07/24 15:49 Dose: 30 mg Documented By: OLYA Clindamycin Phosphate (Cleocin) 600 mg in 50 mls @ 100 mls/hr IV Q6H [facility] Last Infusion: 11/08/24 10:55 Dose: Infused Documented By: BRIDGET Insulin Human Lispro (Insulin Lispro 100 Unit/Ml 3 Ml Vial) 0 unit SUBCUT TIDAC PRN; Protocol PRN Reason: hyperglycemia Magnesium Hydroxide (Milk Of Magnesia 30 Ml Oral.Susp) 30 ml PO DAILY PRN PRN Reason: Constipation Last Admin: 11/06/24 05:03 Dose: 30 ml Documented By: TUMASY Melatonin (Melatonin 3 Mg Tablet) 6 mg PO BEDTIME PRN PRN Reason: Insomnia Morphine Sulfate (Morphine Sulfate 4 Mg/Ml Cartridge) 3 mg IVPUSH Q3H PRN; Protocol PRN Reason: Pain, Severe (Pain Scale 7-10) Last Admin: 11/08/24 08:26 Dose: 3 mg Documented By: BRIDGET Multivitamins/Vitamin C (Multivitamin Tablet) 1 tab PO DAILY [facility] Last Admin: 11/08/24 07:11 Dose: 1 tab Documented By: MARVEL Ondansetron HCl (Ondansetron Hcl 4 Mg/2 Ml Vial) 4 mg IVPUSH Q8H PRN PRN Reason: Nausea and Vomiting Last Admin: 11/07/24 08:39 Dose: 4 mg Documented By: OLYA Oxycodone HCl (Oxycodone Hcl Immed Release 5 Mg Tablet) 5 mg PO Q6H PRN PRN Reason: Pain, Severe (Pain Scale 7-10) Last Admin: 11/08/24 13:58 Dose: 5 mg Documented By: MARVEL Polyethylene Glycol (Polyethylene Glycol 3350 17 Gm Powd.Pack) 17 gm PO DAILY PRN PRN Reason: Constipation Last Admin: 11/06/24 19:26 Dose: 17 gm Documented By: XU Pyridoxine HCl (Pyridoxine Hcl (Vitamin B6) 50 Mg Tablet) 50 mg PO DAILY [facility] Last Admin: 11/08/24 07:11 Dose: 50 mg Documented By: MARVEL Sodium Chloride (0.9 % Sodium Chloride Flush 3 Ml Syringe) [facility] Last Admin: 11/08/24 07:11 Dose: 3 ml Documented By: MARVEL Vitamin D (Cholecalciferol (Vitamin D3) 25 Mcg Tablet) 25 mcg PO DAILY [facility] Last Admin: 11/08/24 07:11 Dose: 25 mcg Documented By: MARVEL Labs 11/08/24 05:27 11/08/24 05:27 Labs: Laboratory Results - last 24 hr 11/07/24 11/07/24 11/08/24 16:01 21:17 05:27 MCV 87.8 MCH 28.0 MCHC 31.8 RDW 14.9 Plt Count 261 MPV 9.5 Immature Gran % (Auto) 3.0 H Neut % (Auto) 76.8 H Lymph % (Auto) 11.8 L [place] % (Auto) 6.5 Eos % (Auto) 1.5 Baso % (Auto) 0.4 Lymph # (Auto) 1.4 [place] # (Auto) 0.8 Eos # (Auto) 0.2 Baso # (Auto) 0.1 Abs Immat Gran (auto) 0.35 H Absolute Neuts (auto) 9.1 H Absolute Nucleated RBC 0.000 Nucleated RBC % (auto) 0.0 Anion Gap 13 Estim Creat Clear Calc 24.5 Estimated GFR 13 POC Glucose 130 H 127 H Random Glucose 93 Calcium 8.6 11/08/24 11/08/24 07:10 11:07 MCV MCH MCHC RDW Plt Count MPV Immature Gran % (Auto) Neut % (Auto) Lymph % (Auto) [place] % (Auto) Eos % (Auto) Baso % (Auto) Lymph # (Auto) [place] # (Auto) Eos # (Auto) Baso # (Auto) Abs Immat Gran (auto) Absolute Neuts (auto) Absolute Nucleated RBC Nucleated RBC % (auto) Anion Gap Estim Creat Clear Calc Estimated GFR POC Glucose 91 83 Random Glucose Calcium Microbiology Microbiology Results: Microbiology 11/03/24 08:44 Blood Culture - Final Blood - Venous No growth after 5 days. 11/03/24 08:44 Blood Culture - Final Blood - Venous No growth after 5 days. 11/05/24 15:55 Gram Stain - Final Thigh Right Routine Culture - Final Methicillin Res Staph Aureus Assessment and Plan (1) Acute kidney injury: Status: Acute (2) Sepsis: Status: Acute (3) Abscess and cellulitis of gluteal region: Status: Acute Plan 48-year-old male with a past medical history of hypertension, gout, hyperlipidemia, anxiety, documented history of PVD and tremors presented to the ED after a 4 day history of right groin / thigh pain and swelling. Sepsis 2/2 Cellulitis/abscess right posterior thigh surgery consulted, status post I and D and debridement of a right thigh abscess cellulitis resolving, induration improving blood Cultures negative wound cx growing MRSA DC IV vancomycin and Zosyn for JOSE A and high Vanco trough Keep on Clindamycin IV for now Pain management with Tylenol, and oxycodone as needed. follow Vancomycin trough Acute kidney injury Cr stabilizing around 4.7 , making urine, no signs of uremia likely ATN from IV Contrast, hypotension, medications urine studies Hold Nephrotoxins IVF dcd give IV Lasix follow I\O nephro consult appreciated, use Lasix for fluid overload Vancomycin toxicity max 29, trended down to 16 DC Vanco and trend levels Type 2 diabetes Blood glucose checks q.i.d., lispro sliding scale for blood glucose control A1c 5.8 Gout hold allopurinol. Patient is a full code DVT prophylaxis with Lovenox Quality Stroke Does the patient have a stroke diagnosis?: No VTE Prior VTE?: No VTE Risk Level:: Medical - moderate - high VTE Device Contraindication: Treatment Not Indicated VTE Drug Contraindication: N/A - Med Ordered
[2024-11-08 15:16] VITALS: BP 117/70; PULSE 92; RESP 18; TEMP 36.9; O2SAT 97
[2024-11-08 16:30] LABS: Glucose, Whole Blood 114 mg/dL (60-115)
[2024-11-08] MEDS: Enoxaparin Sodium 30 MG/0.3 ML SYRINGE SUBCUT (16:53)
[2024-11-08 20:00] VITALS: BP 124/75; PULSE 77; RESP 18; TEMP 36.9; O2SAT 99
[2024-11-08 20:42] LABS: Glucose, Whole Blood 95 mg/dL (60-115)
[2024-11-08] MEDS: Melatonin 3 MG TABLET 6 MG PO (21:35)
[2024-11-09] MEDS: Morphine Sulfate 4 MG/ML CARTRIDGE 3 MG IVPUSH ×3 (03:04→14:59)
[2024-11-09] MEDS: Clindamycin Phosphate/D5W 600 MG/50 ML PIGGYBACK 100 MG IV ×4 (03:37→21:25)
[2024-11-09 04:00] VITALS: BP 98/52; PULSE 69; RESP 18; TEMP 36.9; O2SAT 96
[2024-11-09 06:23] LABS: Anion Gap 12 (12-20); Blood Urea Nitrogen 28 mg/dL (9-16); Calcium 8.5 mg/dL (8.4-10.2); Carbon Dioxide 28 mmol/L (22-29); Chloride 105 mmol/L (96-108); Creatinine Clr Calc Pharmacy 28.2; Creatinine Clr Calc Pharmacy 28.7; Estimated Glomerular Filt Rate 16; Glucose Random 86 mg/dL (60-115); Potassium 4.2 mmol/L (3.3-5.1); Sodium 141 mmol/L (135-145)
[2024-11-09 07:39] LABS: Glucose, Whole Blood 88 mg/dL (60-115)
[2024-11-09] MEDS: Multivitamin TABLET 1 TAB PO (07:49)
[2024-11-09] MEDS: Pyridoxine HCl (Vitamin B6) 50 MG TABLET PO (07:49)
[2024-11-09] MEDS: 0.9 % Sodium Chloride Flush 3 ML SYRINGE IVFLUSH ×2 (07:50→21:26)
[2024-11-09] MEDS: 0.9 % Sodium Chloride 500 ML IV (07:50)
[2024-11-09] MEDS: Cholecalciferol (Vitamin D3) 25 MCG TABLET PO (07:50)
[2024-11-09 07:57] VITALS: BP 129/72; PULSE 75; RESP 18; TEMP 37.3; O2SAT 96
[2024-11-09] MEDS: methylPREDNISolone Sod Succ 40 MG/ML VIAL IVPUSH ×2 (09:26→21:25)
[2024-11-09] MEDS: 0.9 % Sodium Chloride 1,000 ML 100 ML IVCONT ×2 (09:28→21:57)
[2024-11-09] MEDS: oxyCODONE HCl Immed Release 5 MG TABLET PO ×2 (11:45→19:19)
[2024-11-09 12:00] LABS: Glucose, Whole Blood 99 mg/dL (60-115)
--- NOTE | 2024-11-09 15:13 | PM.EVENT ---
Event Note Date of Service: 11/09/24 Event Note: Seen today Feels well Much improved with regards to the right buttock and perianal areas Dressings have been changed Afebrile Looks well and comfortable Creatinine has improved significantly Continue daily wound care with dressing changes He may need a visiting nurse on discharge Time Spent With Patient Time: Total time managing care of this patient today ____ minutes.
[2024-11-09 15:15] VITALS: BP 117/65; PULSE 74; RESP 18; TEMP 36.4; O2SAT 94
[2024-11-09] MEDS: Enoxaparin Sodium 30 MG/0.3 ML SYRINGE SUBCUT (16:03)
[2024-11-09 16:21] LABS: Glucose, Whole Blood 199 mg/dL (60-115)
--- NOTE | 2024-11-09 16:45 | HO.PM.IMPN ---
Subjective Subjective Date of Service: 11/09/24 Interval History: seen and evaluated wound site improving reporting joint pain in elbow and wrist JOSE A and Cr stabilizing no other events Review of Systems Review of Systems: Yes all other systems are reviewed and are negative Physical Exam Vital Signs: Vital Signs: Last Vital Signs Temp 97.6 F 11/09/24 15:15 Pulse 74 11/09/24 15:15 Resp 18 11/09/24 15:15 BP 117/65 11/09/24 15:15 Pulse Ox 94 11/09/24 15:15 O2 Del Method Room Air 11/09/24 15:15 BMI result Body Mass Index 38.7 Const: Other: Constitutional : interactive, not in distress Cardiovascular : no JVP, trace bilateral lower extremity edema Respiratory : bilateral chest movement, not in resp distress Gastrointestinal: soft, lax, Non tender Skin : Warm, Dry, open wound in right thigh with drainage, improving erythema and warmth Skeletal: rt elbow erythema and tenderness, right big toe erythema and warmth, tenderness Neurological : Alert & oriented , No focal deficit Objective Data Active Medications Acetaminophen (Acetaminophen 325 Mg Tablet) 650 mg PO Q6H PRN PRN Reason: Pain, Mild 1-3,fever,headache Last Admin: 11/04/24 15:41 Dose: 650 mg Documented By: ELIANA Calcium Carbonate (Calcium Carbonate 750 Mg Tab.Chew) 750 mg PO Q4H PRN PRN Reason: Heartburn Last Admin: 11/05/24 10:05 Dose: 750 mg Documented By: DEYVI Enoxaparin Sodium (Enoxaparin Sodium 30 Mg/0.3 Ml Syringe) 30 mg SUBCUT Q24H [facility] Last Admin: 11/09/24 16:03 Dose: 30 mg Documented By: ELIANA Clindamycin Phosphate (Cleocin) 600 mg in 50 mls @ 100 mls/hr IV Q6H [facility] Last Infusion: 11/09/24 16:32 Dose: Infused Documented By: ELIANA Sodium Chloride (Ns) 1,000 mls @ 100 mls/hr IVCONT .Q10H [facility] Last Admin: 11/09/24 09:28 Dose: 100 mls/hr Documented By: ELIANA Insulin Human Lispro (Insulin Lispro 100 Unit/Ml 3 Ml Vial) 0 unit SUBCUT TIDAC PRN; Protocol PRN Reason: hyperglycemia Magnesium Hydroxide (Milk Of Magnesia 30 Ml Oral.Susp) 30 ml PO DAILY PRN PRN Reason: Constipation Last Admin: 11/06/24 05:03 Dose: 30 ml Documented By: XU Melatonin (Melatonin 3 Mg Tablet) 6 mg PO BEDTIME PRN PRN Reason: Insomnia Last Admin: 11/08/24 21:35 Dose: 6 mg Documented By: VASILIY Methylprednisolone Sodium Succinate (Methylprednisolone Sod Succ 40 Mg/Ml Vial) 40 mg IVPUSH Q12H [facility] Stop: 11/09/24 23:59 Last Admin: 11/09/24 09:26 Dose: 40 mg Documented By: ELIANA Morphine Sulfate (Morphine Sulfate 4 Mg/Ml Cartridge) 3 mg IVPUSH Q3H PRN; Protocol PRN Reason: Pain, Severe (Pain Scale 7-10) Last Admin: 11/09/24 14:59 Dose: 3 mg Documented By: ELIANA Multivitamins/Vitamin C (Multivitamin Tablet) 1 tab PO DAILY [facility] Last Admin: 11/09/24 07:49 Dose: 1 tab Documented By: ELIANA Ondansetron HCl (Ondansetron Hcl 4 Mg/2 Ml Vial) 4 mg IVPUSH Q8H PRN PRN Reason: Nausea and Vomiting Last Admin: 11/07/24 08:39 Dose: 4 mg Documented By: OLYA Oxycodone HCl (Oxycodone Hcl Immed Release 5 Mg Tablet) 5 mg PO Q6H PRN PRN Reason: Pain, Severe (Pain Scale 7-10) Last Admin: 11/09/24 11:45 Dose: 5 mg Documented By: ELIANA Polyethylene Glycol (Polyethylene Glycol 3350 17 Gm Powd.Pack) 17 gm PO DAILY PRN PRN Reason: Constipation Last Admin: 11/06/24 19:26 Dose: 17 gm Documented By: XU Prednisone (Prednisone 20 Mg Tablet) 40 mg PO DAILY [facility] Pyridoxine HCl (Pyridoxine Hcl (Vitamin B6) 50 Mg Tablet) 50 mg PO DAILY [facility] Last Admin: 11/09/24 07:49 Dose: 50 mg Documented By: ELIANA Sodium Chloride (0.9 % Sodium Chloride Flush 3 Ml Syringe) 3 ml IVFLUSH QSHIFT [facility] Last Admin: 11/09/24 14:59 Dose: Not Given Documented By: ELIANA Non-Admin Reason: IV Running Vitamin D (Cholecalciferol (Vitamin D3) 25 Mcg Tablet) 25 mcg PO DAILY [facility] Last Admin: 11/09/24 07:50 Dose: 25 mcg Documented By: ELIANA Labs 11/08/24 05:27 11/09/24 05:24 Labs: Laboratory Results - last 24 hr 11/08/24 11/09/24 11/09/24 20:36 05:24 05:24 Anion Gap 12 Estim Creat Clear Calc 28.2 28.7 Estimated GFR 16 POC Glucose 95 Random Glucose Calcium 11/09/24 11/09/24 11/09/24 05:24 07:30 11:56 Anion Gap Estim Creat Clear Calc Estimated GFR 16 POC Glucose 88 99 Random Glucose 86 Calcium 8.5 11/09/24 16:17 Anion Gap Estim Creat Clear Calc Estimated GFR POC Glucose 199 H Random Glucose Calcium Assessment and Plan (1) Acute kidney injury: Status: Acute (2) Sepsis: Status: Acute (3) Abscess and cellulitis of gluteal region: Status: Acute (4) Acute gout due to renal impairment: Status: Acute Plan 48-year-old male with a past medical history of hypertension, gout, hyperlipidemia, anxiety, documented history of PVD and tremors presented to the ED after a 4 day history of right groin / thigh pain and swelling. Sepsis 2/2 Cellulitis/abscess right posterior thigh surgery consulted, status post I and D and debridement of a right thigh abscess, erythema resolved. blood Cultures negative, wound cx growing MRSA DC IV vancomycin and Zosyn for JOSE A and high Vanco trough Keep on Clindamycin IV for now, switch to PO on discharge Pain management with Tylenol, and oxycodone as needed. follow Vancomycin trough Acute gout exacerbation Methylprednisolone for today Start Prednisone tormorrow hold on Colchicine until Cr improves Hold Allopurinol for now Acute kidney injury Cr improving to 4, (maxed at 4.7) likely ATN from IV Contrast, hypotension, medications Hold Nephrotoxins IVF dcd hold IV Lasix follow I\O nephro consult appreciated Vancomycin toxicity max 29, trended down to 16 DC Vanco and trend levels Type 2 diabetes Blood glucose checks q.i.d., lispro sliding scale for blood glucose control A1c 5.8 Gout hold allopurinol. Patient is a full code DVT prophylaxis with Lovenox The patient will need overnight hospital Quality Stroke Does the patient have a stroke diagnosis?: No VTE Prior VTE?: No VTE Risk Level:: Medical - moderate - high VTE Device Contraindication: Treatment Not Indicated VTE Drug Contraindication: N/A - Med Ordered
--- NOTE | 2024-11-09 18:13 | P.PNNP_ITS ---
Subjective Subjective Date of Service: 11/09/24 Interval history: No overnite events ; Serum creatinine better Physical Exam 2 Vital Signs: Vital Signs: Last Vital Signs Temp 97.6 F 11/09/24 15:15 Pulse 74 11/09/24 15:15 Resp 18 11/09/24 15:15 BP 117/65 11/09/24 15:15 Pulse Ox 94 11/09/24 15:15 O2 Del Method Room Air 11/09/24 15:15 BMI result Body Mass Index 38.7 Const: General: no acute distress Orientation/consciousness: patient oriented x3 HEENT: Head: Yes normocephalic Neck: Neck: Yes supple Resp: Auscultation: diminished lung sounds Cardio: Rate: regular rate GI: Palpation (GI): Soft to palpation Neuro: General: patient oriented x3 Objective Data Labs 11/08/24 05:27 11/09/24 05:24 Labs: Laboratory Results - last 24 hr 11/08/24 11/09/24 11/09/24 20:36 05:24 05:24 Sodium 141 Potassium 4.2 Chloride 105 Carbon Dioxide 28 Anion Gap 12 BUN 28 H Creatinine 4.12 H* 4.04 H* Estim Creat Clear Calc 28.2 Estimated GFR POC Glucose 95 Random Glucose Calcium 11/09/24 11/09/24 11/09/24 05:24 05:24 07:30 Sodium Potassium Chloride Carbon Dioxide Anion Gap BUN Creatinine Estim Creat Clear Calc 28.7 Estimated GFR 16 16 POC Glucose 88 Random Glucose 86 Calcium 8.5 11/09/24 11/09/24 11:56 16:17 Sodium Potassium Chloride Carbon Dioxide Anion Gap BUN Creatinine Estim Creat Clear Calc Estimated GFR POC Glucose 99 199 H Random Glucose Calcium Microbiology Microbiology Results: Microbiology 11/03/24 08:44 Blood - Venous Blood Culture - Final No growth after 5 days. 11/03/24 08:44 Blood - Venous Blood Culture - Final No growth after 5 days. 11/05/24 15:55 Thigh Right Gram Stain - Final 11/05/24 15:55 Thigh Right Routine Culture - Final Methicillin Res Staph Aureus 11/03/24 12:28 Groin Gram Stain - Final 11/03/24 12:28 Groin Routine Culture - Final Methicillin Res Staph Aureus Procedures Date of Service Date of Service: 11/09/24 Assessment & Plan Assessment and plan (1) Acute kidney injury: Status: Acute Plan Acute kidney injury due to tubular injury- likely multifactorial (combination of hypotension and contrast induced nephropathy with high vancomycin level) Urinalysis showed some blood, 11 - 20 RBCs, 6-10 WBCs. No proteinuria in September 2024, urine eosinophils negative No reason to suspect obstructive uropathy; Serum creatinine improved; No indication for renal replacement Continue current supportive care for now; Labs AM Progress Note: Quality Stroke Does the patient have a stroke diagnosis?: No
[2024-11-09] MEDS: Calcium Carbonate 750 MG TAB.CHEW PO (19:19)
[2024-11-09 19:42] VITALS: BP 135/78; PULSE 66; RESP 18; TEMP 37.1; O2SAT 97
[2024-11-09 20:39] LABS: Glucose, Whole Blood 237 mg/dL (60-115)
[2024-11-09] MEDS: Melatonin 3 MG TABLET 6 MG PO (21:25)
[2024-11-10 03:56] VITALS: BP 150/87; PULSE 56; RESP 20; TEMP 37; O2SAT 92
[2024-11-10] MEDS: Clindamycin Phosphate/D5W 600 MG/50 ML PIGGYBACK 100 MG IV ×2 (03:59→09:57)
[2024-11-10 06:38] LABS: Creatinine Clr Calc Pharmacy 33.8; Estimated Glomerular Filt Rate 19
[2024-11-10 07:20] VITALS: BP 134/75; PULSE 52; RESP 18; TEMP 36.3; O2SAT 96
[2024-11-10 07:25] LABS: Glucose, Whole Blood 152 mg/dL (60-115)
[2024-11-10] MEDS: predniSONE 20 MG TABLET 40 MG PO (08:47)
[2024-11-10] MEDS: Multivitamin TABLET 1 TAB PO (08:47)
[2024-11-10] MEDS: Pyridoxine HCl (Vitamin B6) 50 MG TABLET PO (08:47)
[2024-11-10] MEDS: Cholecalciferol (Vitamin D3) 25 MCG TABLET PO (08:47)
[2024-11-10] MEDS: Morphine Sulfate 4 MG/ML CARTRIDGE 3 MG IVPUSH (09:19)
--- NOTE | 2024-11-10 09:50 | P.DS_ITS ---
DS: Providers Provider Date of Service: 11/10/24 Date of admission: 11/03/24 11:22 Date of discharge: 11/10/24 Primary care physician: Randa Shanks MD Consults: 11/03/24 11:01 Consult to General Surgery Routine Consulting Provider: [facility] Reason for consultation: Large right groin abscess / cellulitis Has provider been notified: Yes 11/05/24 17:32 Consult to Wound Care Routine Reason for consultation: Abscess x2 to right inner thigh 11/06/24 08:25 Consult to Nephrology Routine Consulting Provider: [facility] Reason for consultation: JOSE A; Contrast vs Vancomycin toxicity DS: Diagnosis Discharge Diagnosis (1) Acute kidney injury: Status: Acute (2) Acute gout due to renal impairment: Status: Acute (3) Sepsis: Status: Acute (4) Abscess and cellulitis of gluteal region: Status: Acute (5) Cellulitis: Status: Acute (6) Abscess: Status: Acute DS: Summary Hospital Course Hospital Course: Admission note HPI 48-year-old male with a past medical history of hypertension, gout, hyperlipidemia, anxiety, documented history of PVD and tremors presented to the ED after a 4 day history of right groin / thigh pain and swelling. Patient reports that over the last 4 days he had worsening of right groin/thigh pain, fevers and tightness in his thigh. He denies any dizziness, lightheadedness, abdominal pain, nausea, vomiting, chills, chest pain, shortness of breath or any other concerning symptoms. Patient reports that his thigh is more painful with movement. Patient was found to have fluid pockets measuring up to 2.5 cm in size, multiple enlarged lymph nodes and evidence of cellulitis. He was noted to have a lactic acid of 1.2, WBC elevated at 19, renal function within normal limits. He was given 2 L IV fluids in the ED, loading dose of vancomycin, dose of Zosyn, Tylenol and morphine. On exam he is in no apparent distress, Alert easy to arouse. He was febrile on admit, given IV Tylenol, temp improved to 98.1. He is saturation is within normal limits on room air. Patient reports a history of gout, he has not had any recent flares last 1 was about a year ago. His diabetes is controlled with metformin. He reports he is not on any medication for hypertension or hyperlipidemia. Controlled with diet and exercise at this time Hospital course # Admitted for Sepsis secondary to Cellulitis and abscess right posterior thigh. surgery consulted, status post I and D and debridement of a right thigh abscess, erythema resolved as he was treated with IV antibiotics as blood Cultures n egative, wound cx growing MRSA. Started on IV vancomycin and Zosyn which were both held later for JOSE A and high Vanco trough and switched to Clindamycin IV with good response as pain, erythema and drainage resolved. switched to PO on discharge. Pain management with Tylenol, and oxycodone as needed. To follow with surgery as needed as outpatient. # Acute gout exacerbation Developed day 6 of hospital stay as Allopurinol was held for JOSE A. Started on Methylprednisolone with fair response. Switched to Prednisone tapering dose after reviewing with nephrology. To Hold Allopurinol for now and not to start Colchicine given JOSE A. # Acute kidney injury Developed during hospital stay as Creatinine maxed at 4.7 before trending down to 3.4 at time of discharge from normal baseline. likely ATN from IV Contrast, hypotension, medications. Treated with IV fluids and Hold Nephrotoxins . followed by nephrology while inpatient. Continue to follow as OP and repeat BMP next week. # Vancomycin toxicity. Vancomycin level reached max 29, trended down as it was discontinued. Discharge plan Avoid Adbil, Aleve and similar pain medsications for now; only Tylenol and Oxycodone as needed Tapering dose Prednisone as prescribed HOLD Allopurinol until you see nephrology and they allow you to restart it Continue Clindamycin for 5 more days Follow with [facility] Nephrology as outpatient repeat blood test next week Time Attestation Discharge Coordination Time (in mins): 47 Quality: Safe Use of Opioids Does Pt have an Active Cancer Diagnosis on the Problem List?: No Quality: Stroke Does the patient have a stroke diagnosis?: No Physical Exam Vital Signs: Vital Signs: Last Vital Signs Temp 97.3 F 11/10/24 07:20 Pulse 52 11/10/24 07:20 Resp 18 11/10/24 07:20 BP 134/75 11/10/24 07:20 Pulse Ox 96 11/10/24 07:20 O2 Del Method Room Air 11/10/24 07:20 BMI result Body Mass Index 38.7 Const: Other: Constitutional : interactive, not in distress Cardiovascular : no JVP, trace bilateral lower extremity edema Respiratory : bilateral chest movement, not in resp distress Gastrointestinal: soft, lax, Non tender Skin : Warm, Dry, right thigh with no more open wound or drainage, resolving erythema and warmth Skeletal: rt elbow improving erythema and tenderness, resolving right big toe erythema and warmth, tenderness Neurological : Alert & oriented , No focal deficit DS: Data Data Completed and Pending Completed studies during hospitalization [Text1]: Pending at discharge 11/05/24 16:20 Surgical [PTH] Routine Labs on day of discharge: Laboratory Results - last 24 hr 11/09/24 11/09/24 11/09/24 11:56 16:17 19:48 Hold Purple Top Creatinine Estim Creat Clear Calc Estimated GFR POC Glucose 99 199 H 237 H 11/10/24 11/10/24 06:05 07:18 Hold Purple Top SEE NOTE Creatinine 3.43 H Estim Creat Clear Calc 33.8 Estimated GFR 19 POC Glucose [address] scan - abdomen: Radiologist's impression: ITS Impressions Pelvis CT 11/03/24 09:19 IMPRESSION: 1. Findings consistent with cellulitis involving the medial aspect of the right thigh. Small fluid pockets are noted measuring up to 2.5 cm in size. 2. Pelvic lymphadenopathy as described. Electronically signed by: Jason Woods MD 11/03/2024 10:54 AM EDT Discharge Plan Discharge Anticipated Discharge Date/Time: 11/10/24 09:36 Patient Disposition: Home Health Service Discharge Diagnosis: Acute renal failure Acute gout exacerbation Sepsis Abscess of right leg Referrals: Charli HOGAN [Outside] - 3-5 Days (Charli HOGAN will call you to schedule nursing visits) Hakan Sin MD [Physician] - 1 Week Michael Timmons MD [Physician] - 1 Week Discharge Medications: New oxycodone 5 mg Tablet 5 mg PO Q6H PRN (Reason: Pain, Severe (Pain Scale 7-10)) Qty: 12 0RF Rx Instructions: Partial Fill upon patient request. clindamycin HCl 300 mg capsule 300 mg PO Q6H Qty: 20 0RF prednisone 10 mg tablet See Taper PO DIRECTED Qty: 30 0RF Taper: Prednisone 40 mg daily for 3 Days and 0 Hour 30 mg daily for 3 Days and 0 Hour 20 mg daily for 3 Days and 0 Hour 10 mg daily for 3 Days and 0 Hour Rx Instructions: see taper instructions Continued cholecalciferol (vitamin D3) 25 mcg (1,000 unit) tablet 25 mcg PO DAILY Qty: 90 0RF (DME) compress.stocking,knee,reg,lrg Misc See Rx Instructions .ROUTE .MEDSUPPLY Qty: 2 0RF Rx Instructions: As directed metformin 500 mg tablet 500 mg PO DAILY Qty: 90 0RF pyridoxine (vitamin B6) 50 mg tablet 50 mg PO DAILY multivitamin Tablet 1 tab PO DAILY Held allopurinol 300 mg tablet 600 mg PO DAILY Qty: 60 5RF Hold Instructions: HOLD Until you see Nephrology and they allow you to restart it Discharge Orders: Discharge Order (Routine); Ordered 11/10/24 Ordered By: Hazel Sanchez Diet: Advance to usual diet Activity on Discharge: As tolerated Stand Alone Forms: Patient Portal Discharge page Print Language: Azeri Other Ambulatory Orders: B Type Natriuretic Peptide (Routine) Timeframe: 1 Week Facility: [facility] - Location: Laboratory Ordered By: Hazel Sanchez Care Plan Goals: Avoid Adbil, Aleve and similar pain medsications for now; only Tylenol and Oxycodone as needed Tapering dose Prednisone as prescribed HOLD Allopurinol until you see nephrology and they allow you to restart it Continue Clindamycin for 5 more days Follow with [facility] Nephrology as outpatient repeat blood test next week Health Concerns: Acute renal failure Acute gout exacerbation Sepsis Abscess of right leg Plan of Treatment: Prednisone for gout Clindamycin for infection Oxycodone for pain follow with nephro Assessment: as above
--- NOTE | 2024-11-10 10:53 | MHC.CM.PN ---
Patient medically cleared for dc home w/ new [facility] for wound care. Patient understands that his dressing needs to be changed daily, and the [facility]NA cannot accommodate daily dressings. His girlfriend will assist on the days VNA is unavailable. Will transport home via [employer].
--- NOTE | 2024-11-10 10:55 | P.F2F_ITS ---
Service Date Service Date: 11/10/24 Encounter Date of encounter: 11/10/24 Reasons for Services Signs and symptoms assessed: Right gluteal region abscess Reason for penitentiary: wound care (Every 2 days dressing changes with wet to dry saline soaked fluff packing to anterior groin wound followed by dry fluffs, abd pad, mesh underwear), teach disease management and other Homebound: Leaving the home is medically contraindicated at this time without the asist of a device and/or another person due th the listed conditions above and below. Reason homebound: unable to drive Certification: Based on the above findings, I certify that this patient is confined to the home and needs intermittent penitentiary care, physical therapy and/or speech therapy, or continues to need occupational therapy. The patient is under my care, and I have initiated the establishment of the plan of care. The patient will be followed by a physician who will periodically review the plan of care. Time Spent With Patient Time: Total time managing care of this patient today ____ minutes.
== END 2024-11-10 11:59 | disposition home health service (06) | DRG 720 ==
LOC: HO.ED 11:07 → HO.EDOVER 11:31 → HO.S3 11-04 06:08
PROVIDERS: Internal Medicine; Nurse Practitioner Family; Surgery; Admitting Provider Family Medicine; Emergency Provider Emergency Medicine; PCP Internal Medicine; Visit Provider Student in an Organized Health Care Education/Training Program
PROC: 0JBL0ZZ Excision of Right Upper Leg Subcutaneous Tissue and Fascia, Open Approach (ICD-10-PCS; principal; 2024-11-05 15:00)
DX: A41.9 Sepsis, unspecified organism (principal); N17.0 Acute kidney failure with tubular necrosis; I96 Gangrene, not elsewhere classified; E11.51 Type 2 diabetes mellitus with diabetic peripheral angiopathy without gangrene; L02.415 Cutaneous abscess of right lower limb; I95.9 Hypotension, unspecified; L02.31 Cutaneous abscess of buttock; I10 Essential (primary) hypertension; L03.115 Cellulitis of right lower limb; B95.62 Methicillin resistant Staphylococcus aureus infection as the cause of diseases classified elsewhere; R89.2 Abnormal level of other drugs, medicaments and biological substances in specimens from other organs, systems and tissues; M10.9 Gout, unspecified; T50.8X5A Adverse effect of diagnostic agents, initial encounter; N14.11 Contrast-induced nephropathy; Z98.84 Bariatric surgery status; Z79.84 Long term (current) use of oral hypoglycemic drugs; Z79.899 Other long term (current) drug therapy
CPT/HCPCS: 36415; 72193; 76775; 80048; 80053; 80202; 81001; 82565; 82570; 82947; 83036; 83605; 85025; 85999; 87040; 87070; 87077; 87186; 87205; 88304; 99285; J0131; J0690; J0736; J1650; J1938; J2003; J2270; J2405; J2470; J2543; J2704; J2795; J2919; J3010; J3370; J3371; J7120; Q9967

== ENCOUNTER → 2024-11-03 09:19 | Outpatient (BNV) | payer OTHER, SELFPAY | PROVIDERS: Emergency Provider Emergency Medicine; PCP Internal Medicine; Visit Provider Radiology Diagnostic Radiology | DX: L03.115 Cellulitis of right lower limb (principal) | CPT/HCPCS: 72193 ==

== ENCOUNTER 2024-11-03 11:22 | Outpatient (BNV) | payer OTHER, SELFPAY | END 2024-11-07 07:46 | PROVIDERS: Admitting Provider Family Medicine; Emergency Provider Emergency Medicine; PCP Internal Medicine; Visit Provider Specialist | DX: N17.9 Acute kidney failure, unspecified (principal) | CPT/HCPCS: 76775 ==

== ENCOUNTER → 2024-11-03 11:22 | Outpatient (BNV) | payer OTHER, SELFPAY | PROVIDERS: Admitting Provider Family Medicine; Emergency Provider Emergency Medicine; PCP Internal Medicine; Visit Provider Surgery | DX: N17.9 Acute kidney failure, unspecified (principal); L02.31 Cutaneous abscess of buttock; L03.317 Cellulitis of buttock; K61.0 Anal abscess | CPT/HCPCS: 11042; 11045; 46050; 99024; 99222; 99231; 99232; 99499 ==

== ENCOUNTER → 2024-11-03 11:22 | Outpatient (BNV) | payer OTHER, SELFPAY | PROVIDERS: Admitting Provider Family Medicine; Emergency Provider Emergency Medicine; PCP Internal Medicine; Visit Provider Nurse Practitioner Family | DX: A41.9 Sepsis, unspecified organism (principal); L02.31 Cutaneous abscess of buttock; L03.317 Cellulitis of buttock; L03.90 Cellulitis, unspecified | CPT/HCPCS: 99222; 99233 ==

== ENCOUNTER → 2024-11-03 11:22 | Outpatient (BNV) | payer OTHER, SELFPAY | PROVIDERS: Admitting Provider Family Medicine; Emergency Provider Emergency Medicine; PCP Internal Medicine; Visit Provider Internal Medicine Nephrology | DX: N17.9 Acute kidney failure, unspecified (principal) | CPT/HCPCS: 99232 ==

== ENCOUNTER → 2024-11-03 11:22 | Outpatient (BNV) | payer OTHER, SELFPAY | PROVIDERS: Admitting Provider Family Medicine; Emergency Provider Emergency Medicine; PCP Internal Medicine; Visit Provider Internal Medicine Critical Care Medicine | DX: E11.65 Type 2 diabetes mellitus with hyperglycemia (principal); I10 Essential (primary) hypertension; N17.9 Acute kidney failure, unspecified | CPT/HCPCS: 99232 ==

== ENCOUNTER 2024-11-17 13:01 | Outpatient (AMB) | payer OTHER, SELFPAY ==
--- NOTE | 2024-11-17 12:59 | MHC.OFFVIS ---
Vital Signs 11/17/24 13:14 Height 5 ft 9 in Weight 254 lb 6 oz BMI 37.6 BP 139/90 H Blood Pressure Location Lt brachial Position Sitting Pulse 71 Intake Visit Reasons: s/p I&D abscess Intake Note: Patient is seen office for post op assessment post I&D right buttock and perianal abscess. Pt c/o: admits to absecess in the front groin area has a wet to dry with minimal discharge, has another abscess in the back with packing in it, admits to discharge, denies redness, hot to touch, is all done with antibiotics Control Director Required: No Accompanied by: Family/Other Allergies latex [LATEX] Allergy (Intermediate, Verified 11/17/24 13:14) RASH acetaminophen [Tylenol] Allergy (Unknown, Verified 11/17/24 13:14) stomach upset amoxicillin Allergy (Unknown, Verified 11/17/24 13:14) nausea and vomiting HPI HPI s/p I&D abscess: Details: Patient reports he is Doing well, feels like he is improving. States he completed his course of antibiotics yesterday. He has been trying to keep the area clean and changing dressings daily, has VNA services at house to change dressings. They have been consistent with packing in the smaller right buttock wound and using wet-to-dry on the larger groin incision. He reports pain from the incision on the right buttock, especially at night when it hurts the worst, still requiring narcotic pain management. Patient unable to take Tylenol. He reports the wounds continued to drain. He denies fever, chills. 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 [facility] Medical History Obesity (BMI 30-39.9) Type 2 diabetes mellitus with hyperglycemia Hypertension Essential tremor Hypercholesterolemia Anxiety and depression Contracture, left hand Gout Surgical History History of tonsillectomy History of cholecystectomy History of sleeve gastrectomy Family History Father No problems noted. Mother No problems noted. 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 Moderate saturation of the dressings appears serosanguineous no evidence of further fluctuance or purulent discharge. No surrounding erythema Right groin wound: Dressing in place, moderate saturation, serosanguineous. No evidence of purulent discharge or surrounding erythema This area is mildly tender to palpation Assessment & Plan Assessment & Plan (1) Abscess and cellulitis of gluteal region: Code(s): L02.31 - Cutaneous abscess of buttock; L03.317 - Cellulitis of buttock Category: Medical Plan 48-year-old male status post I&D of 2 gluteal/groin abscesses reports for follow-up wound care. Patient is overall improving, discharge is decreasing. Patient has been compliant with VNA and daily dressing changes reports has been going well. The dressings were removed, the area appears improved from the last evaluation when the patient was admitted to the [facility]. The packing was removed from the right buttock wound, that appears to be a moderate amount of discharge on the dressing however none was able to be expressed with manual palpation. Both wounds appear to be healing appropriately at this time. The right buttock wound was repacked with half-inch packing and dressed with gauze. The right groin wound was dressed with wet-to-dry dressing, gauze. The patient continues to experience significant pain at night which has been affecting his sleep, I will send a prescription for oxycodone for the patient to use at night. Recommended the patient use [id number] pain meds during the day. Currently no indication to continue antibiotics at this time. Recommend continuing to keep the area clean and dry as well as possible. Patient will return in 1 week for follow-up wound care. Patient was given a work note, we will reassess how he is doing at next visit decide if he feels ready for work. Medications: New oxycodone Partial Fill upon patient request. Take 1 tablet at night for pain 5 mg PO BEDTIME PRN 7 tabs 0RF pain, moderate Coding Level of Care Code Est Pt Level 2 (49252) Diagnoses Abscess and cellulitis of gluteal region L02.31; L03.317 Time Spent (min) 30 Comment Chart review, evaluation, wound care
[2024-11-17 13:14] VITALS: BP 139/90; PULSE 71; BMI 37.6
--- OUTSIDE RECORDS SUMMARY | 2024-11-17 14:37 | XMS_ITS | Clinical Summary ---
Author Organization [facility] Address [address] [place] [phone] Phone Care Team Providers Care Hospital Administrative Assistant Name Role Phone Unavailable Primary Care Provider [...]
== END 2024-11-17 13:34 | disposition home or self-care (01) ==
PROVIDERS: PCP Internal Medicine
DX: L02.31 Cutaneous abscess of buttock (principal); L03.317 Cellulitis of buttock
CPT/HCPCS: 99024

== ENCOUNTER → 2024-11-17 13:01 | Outpatient (BNVA) | payer OTHER, SELFPAY | PROVIDERS: PCP Internal Medicine | DX: G89.18 Other acute postprocedural pain (principal); Z48.01 Encounter for change or removal of surgical wound dressing | CPT/HCPCS: 99212 ==

== ENCOUNTER 2025-05-28 22:47 | Emergency (ER) | payer SELFPAY ==
[2025-05-28 22:57] VITALS: BP 135/78; BP 146/0; PULSE 106; PULSE 78; RESP 16; TEMP 36.6; O2SAT 98; BMI 33.2
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
--- OUTSIDE RECORDS SUMMARY | 2025-05-29 00:30 | XMS_ITS | Clinical Summary ---
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 Name Role Phone Unavailable Primary Care Provider Unavailabl e Social History Tobacco Use Types Packs/Day Years Used Date Smoking Tobacco: Never Assessed Sex and Gender Information Value Date Recorded Sex Assigned at Not on file Legal Sex Male 10:51 PM EST Gender Identity Not on file Sexual Orientation Not on file Plan of Treatment Health Maintenance Due Date Last Done Comments Colorectal Cancer Screening: Colonoscopy 1976 DTaP,Tdap,and Td Vaccines (1 - Tdap) 12/17/1995 Hepatitis B Vaccines (1 of 3 - 19+ 3-dose series) 12/17/1995 Cholesterol Screening (Lipid Panel) 05/12/2022 HIV Screening 05/12/2022 Hepatitis C Screening 05/12/2022 Social Influencers of Health Screening 05/12/2022 Depression Screening 06/09/2024 COVID-19 Vaccine (1 - 2024-2 6 season) 2025 Influenza Vaccine (#1) 2025 RSV Immunization Adult Patie nts (1 - 1-dose 75+ series) 12/17/2051 HIB Vaccines Aged Out No longer eligi [...] 5 Years) and At-Risk Patients (6 to 49 Years) Aged Out No longer eligible b ased on patient's age to complete this topic RSV Immunization Patients Un martine 20 months Aged Out No longer eligible b ased on patient's age to complete this topic Varicella Vaccines Aged Out No longer eligible based on patient's age to complete this topic Insurance [place]
[2025-05-29 00:49] VITALS: BP 118/85; PULSE 66; RESP 14; TEMP 36.5; O2SAT 96
[2025-05-29] MEDS: Diphth,Pertus(ACell),Tet Adult 0.5 ML SYRINGE IM (01:10)
[2025-05-29 01:12] VITALS: BP 118/85; PULSE 66; RESP 14; TEMP 36.5; O2SAT 96
== END 2025-05-29 01:13 | disposition home or self-care (01) ==
PROVIDERS: Emergency Provider Student in an Organized Health Care Education/Training Program
DX: S09.90XA Unspecified injury of head, initial encounter (principal); S60.512A Abrasion of left hand, initial encounter; Y04.2XXA Assault by strike against or bumped into by another person, initial encounter; Y93.89 Activity, other specified; Y92.511 Restaurant or cafe as the place of occurrence of the external cause; Y99.0 Civilian activity done for income or pay; Z23 Encounter for immunization
CPT/HCPCS: 90471; 90715; 96372; 99282; 99284